=== PATIENT | female | born 1960 | race African-American/Black ===

== ENCOUNTER → 2016-10-06 | Outpatient (CLI) | payer MEDICAID | LOC: RAD 08:44 | PROVIDERS: ATTEND Internal Medicine | DX: M54.40 Lumbago with sciatica, unspecified side (principal) | CPT/HCPCS: 72158; 82565 ==

== ENCOUNTER 2016-12-26 07:02 | Inpatient (IN) | payer MEDICAID ==
[2016-12-26 07:46] LABS: ABSOLUTE LYMPHOCYTES (AUTO) 1.8 10^3/uL (0.5-4.7); ABSOLUTE MONOCYTES (AUTO) 0.2 10^3/uL (0.1-1.4); BASOPHILS % (AUTO) 0.3 % (0-2); EOSINOPHILS % (AUTO) 0.3 % (0-6); HEMATOCRIT 41.3 % (36.0-47.0); HEMOGLOBIN 14.5 g/dL (12.0-15.5); HGB HCT DIFFERENCE 2.2; MEAN CORPUSCULAR HEMOGLOBIN 31.6 pg (27.0-33.4); MEAN CORPUSCULAR VOLUME 91 fl (80-97); MONOCYTES % (AUTO) 2.4 % (3-13); RED BLOOD COUNT 4.57 10^6/uL (3.72-5.28); RED CELL DISTRIBUTION WIDTH 13.7 % (11.5-14.0); WHITE BLOOD COUNT 10.1 10^3/uL (4.0-10.5)
[2016-12-26 08:07] LABS: ALANINE AMINOTRANSFERASE 41 U/L (9-52); ALBUMIN 4.6 g/dL (3.5-5.0); ALKALINE PHOSPHATASE 126 U/L (38-126); ANION GAP 15 (5-19); ASPARTATE AMINO TRANSFERASE 24 U/L (14-36); BILIRUBIN,DIRECT 0.1 mg/dL (0.0-0.4); BILIRUBIN,TOTAL 0.6 mg/dL (0.2-1.3); BLOOD UREA NITROGEN 13 mg/dL (7-20); CARBON DIOXIDE 25 mmol/L (22-30); CHLORIDE 105 mmol/L (98-107); CREATININE RESULT 0.54 mg/dL (0.52-1.25); GLUCOSE 151 mg/dL (75-110); LIPASE 55.8 U/L (23-300); SODIUM 144.9 mmol/L (137-145); TOTAL PROTEIN 8.1 g/dL (6.3-8.2)
[2016-12-26 08:09] LABS: APPEARANCE,URINE CLEAR; BILIRUBIN,URINE NEGATIVE (NEGATIVE); GLUCOSE, URINE NEGATIVE (NEGATIVE); KETONES,URINE NEGATIVE (NEGATIVE); LEUKOCYTE ESTERASE,URINE NEGATIVE (NEGATIVE); NITRITE,URINE NEGATIVE (NEGATIVE); PROTEIN,URINE NEGATIVE (NEGATIVE); URINE SPECIFIC GRAVITY 1.017; UROBILINOGEN,URINE NEGATIVE mg/dL (<2.0)
--- NOTE | 2016-12-26 09:12 | ER Document Report ---
ED GI/ - General Chief Complaint: Abdominal Pain Stated Complaint: ABDOMINAL PAIN Time seen by provider: 09:12 Notes: 56-year-old female presents to ED for complain of generalized abdominal pain worse around the umbilicus. She states the pain started about 2:00 in the morning. She states she's had diarrhea 2 today. TRAVEL OUTSIDE OF THE [place] IN LAST 30 DAYS: No - HPI Patient complains to provider of: Abdominal pain, Diarrhea. No: Vomiting Onset: This morning - Around 2 AM Timing/Duration: Intermittent Quality of pain: Sharp, Stabbing Severity at maximum: Severe Severity in ED: Severe Pain Level: 5 Location: Other - . Umbilical Vaginal bleeding (Compared to normal period): None Menstrual period history: Post-menopausal Associated symptoms: Diarrhea, Nausea Exacerbated by: Movement, Walking Relieved by: Denies Similar symptoms previously: Yes Recently seen / treated by doctor: No - Related Data Allergies/Adverse Reactions: peanut [Peanut] Adverse Reaction (Verified 12/26/16 07:20) Difficulty breathing Home Medications: Current Home Medications Amlodipine Besylate 5 mg PO DAILY 12/26/16 [History] Cholecalciferol (Vitamin D3) [Vitamin D3 5000 unit Capsule] 5,000 unit PO ASDIR PRN 12/26/16 [History] Cyclobenzaprine HCl [Flexeril 10 mg Tablet] 10 mg PO TIDP PRN 12/26/16 [History] Oxycodone HCl/Acetaminophen [Oxycodon-Acetaminophen 7.5-325] 1 each PO TID 12/26 [History] Past Medical History - General Information source: Patient - Social History Smoking Status: Current Every Day Smoker Cigarette use (# per day): Yes - half a pack a day Chew tobacco use (# tins/day): No Smoking Education Provided: Yes - less than 2 minutes Frequency of alcohol use: None Drug Abuse: None Occupation: none Lives with: Spouse/Significant other Family History: Arthritis, COPD, CVA, Hyperlipidemia, Hypertension, Malignancy Patient has suicidal ideation: No Patient has homicidal ideation: No - Past Medical History Cardiac Medical History: Reports: Hx Hypertension Pulmonary Medical History: Reports: None EENT Medical History: Reports: None Neurological Medical History: Reports: None Endocrine Medical History: Reports: None Renal/ Medical History: Reports: Hx Ovarian Cysts GI Medical History: Reports: Hx Diverticulitis, Hx Hepatitis - c, Hx Colonoscopy Musculoskeltal Medical History: Reports Hx Arthritis - Chronic back pain, Reports Hx Musculoskeletal Deformity Psychiatric Medical History: Reports: None Traumatic Medical History: Reports: None Infectious Medical History: Reports: Hx Hepatitis - c Past Surgical History: Reports: Hx Cholecystectomy, Hx Gynecologic Surgery - ovarian scar tissue removed infertility surgery, Hx Oral Surgery - Teeth removed and dental implant, Hx Orthopedic Surgery - carpal tunnel bunionectomy - Immunizations Immunizations up to date: No Hx Diphtheria, Pertussis, Tetanus Vaccination: No - 2007 Review of Systems - Review of Systems Constitutional: No symptoms reported EENT: No symptoms reported Cardiovascular: No symptoms reported Respiratory: No symptoms reported Gastrointestinal: Abdominal pain, Diarrhea, Nausea. denies: Vomiting Genitourinary: No symptoms reported Female Genitourinary: No symptoms reported Musculoskeletal: No symptoms reported Skin: No symptoms reported Hematologic/Lymphatic: No symptoms reported Neurological/Psychological: No symptoms reported Physical Exam - Vital signs Vitals: Temp Pulse Resp BP Pulse Ox 98.3 F 84 14 141/102 H 99 12/26/16 07:21 12/26/16 07:21 12/26/16 07:21 12/26/16 07:21 12/26/16 07:21 Interpretation: Normal - General General appearance: Appears well, Alert - HEENT Head: Normocephalic, Atraumatic Eyes: Normal Pupils: PERRL - Respiratory Respiratory status: No respiratory distress Chest status: Nontender Breath sounds: Normal Chest palpation: Normal - Cardiovascular Rhythm: Regular Heart sounds: Normal auscultation Murmur: No - Abdominal Inspection: Normal Distension: Distended Bowel sounds: Hypoactive Tenderness: Tender Organomegaly: No organomegaly - Back Back: Normal, Nontender - Extremities General upper extremity: Normal inspection, Nontender, Normal color, Normal ROM , Normal temperature General lower extremity: Normal inspection, Nontender, Normal color, Normal ROM , Normal temperature, Normal weight bearing. No: Vladislav's sign - Neurological Neuro grossly intact: Yes Cognition: Normal Orientation: AAOx4 Adali Coma Scale Eye Opening: Spontaneous [place] Coma Scale Verbal: Oriented [place] Coma Scale Motor: Obeys Commands Adali Coma Scale Total: 15 Speech: Normal Motor strength normal: LUE, RUE, LLE, RLE Sensory: Normal - Psychological Associated symptoms: Normal affect, Normal mood - Skin Skin Temperature: Warm Skin Moisture: Dry Skin Color: Normal Course - Re-evaluation Re-evalutation: 12/26/16 14:[address] Olivo with some Symptoms Assessment a CT Abdomen and Pelvis with IV contrast was ordered and returned as a possible small bowel obstruction early. Patient continues to be nauseated has had Zofran a couple times morphine IV. We will insert NG tube. Dr. Honeycutt was called to consult for admission but he is presently in surgery just starting the procedure left message for him to call back as soon as he is out of surgery. 12/26/16 16:43 Dr. crow is on the unit and the visiting these patients and will admit her for small bowel obstruction. - Vital Signs Vital signs: Temp Pulse Resp BP Pulse Ox 98.1 F 84 18 138/104 H 95 12/26/16 17:31 12/26/16 13:52 12/26/16 17:31 12/26/16 17:31 12/26/16 17:31 - Laboratory Result Diagrams: 12/26/16 07:30 12/26/16 07:30 Laboratory results interpreted by me: 12/26/16 12/26/16 12/26/16 07:30 07:30 07:30 Seg Neutrophils % 79.0 H Monocytes % 2.4 L Glucose 151 H Urine Blood MODERATE H - Diagnostic Test Radiology reviewed: Image reviewed, Reports reviewed Discharge - Discharge Clinical Impression: Small bowel obstruction Disposition: ADMITTED INPATIENT Admitting Provider: Codiist Fam Honeycutt Unit Admitted: Surgical Floor
[2016-12-26] MEDS ORDERED: ONDANSETRON HCL INJ/PF 4 MG/2 ML SDV IV ONE ×2 (09:42→11:28)
[2016-12-26] MEDS ORDERED: NORMAL SALINE 1000 ML 1,000 ML IV ONE (09:42)
[2016-12-26] MEDS ORDERED: MORPHINE SULFATE 10 MG/ML INJ IV ONE ×2 (11:28→15:05)
--- NOTE | 2016-12-26 16:58 | HISTORY AND PHYSICAL E ---
History and Physical NAME: LEELEE HANDY : 1960 AGE: 56Y ADMITTED: 12/26/2016 ROOM: CHIEF COMPLAINT: Abdominal pain. HISTORY OF PRESENT ILLNESS: This is a 56-year-old female who complained of periumbilical pains around 8 o'clock after dinner last night. The pain subsided only to come back around 2:00 a.m. and has persisted since then. The pain is described as off and on, and she has had a little nausea. Her last bowel movement and flatus was yesterday morning. PAST MEDICAL HISTORY: 1. History of laparoscopic cholecystectomy by Dr. Albrecht about 2 years ago apparently for acalculous cholecystitis according to the patient and her daughter. 2. She had multiple fertility operations laparoscopically done in her 20s. 3. She has been taking oxycodone daily since about 6 years ago because of back pains, and she is being followed by a primary physician for this. 4. History of hypertension and takes amlodipine for this. 5. No other medical issues other than back pains. She also had some every 2 week injection of steroids on her back pain. SOCIAL HISTORY: Smokes about 1/2 pack a day, though otherwise she has been smoking on and off since age 20 about a pack a day. Drinks socially. No recreational drug use. ALLERGIES: None known. PHYSICAL EXAMINATION: GENERAL: Well-developed, well-nourished, 56-year-old female, alert and oriented, complaining of off and on abdominal pains, mostly on the umbilicus. HEENT: Neck is supple. No thyromegaly. LUNGS: Clear. HEART: Regular sinus rhythm. ABDOMEN: Slightly distended, soft, and tender around and just below the umbilicus. EXTREMITIES: No edema. DIAGNOSTIC DATA: She had a CT scan of the abdomen which showed a mildly dilated distal small bowel with scattered air-fluid levels. Severe gastric distention noted. She appears to be developing a small bowel obstruction. Appendix is normal. IMPRESSION: Small bowel obstruction, likely due to adhesions. PLAN: Continue hydration and NPO and monitor CBC and electrolytes. DICTATING PHYSICIAN: ESTEVAN GALLEGOS M.D. [id number] PHY#: [id number] ID: [id number] JOB#: [id number] ACCT: [id number] cc: >
[2016-12-26] MEDS: MORPHINE SULFATE 10 MG/ML INJ IV PRN ×2 (19:35→22:57)
[2016-12-27] MEDS: MORPHINE SULFATE 10 MG/ML INJ IV PRN ×5 (01:37→05:30)
[2016-12-27] MEDS ORDERED: ONDANSETRON HCL INJ/PF 4 MG/2 ML SDV IV PRN ×2 (01:57→18:05)
[2016-12-27] MEDS: NORMAL SALINE 1000 ML 1,000 ML IV PRN ×3 (02:27→21:39)
[2016-12-27 07:40] LABS: ABSOLUTE EOSINOPHILS # (AUTO) 0.1 10^3/uL (0.0-0.6); ABSOLUTE LYMPHOCYTES (AUTO) 2.2 10^3/uL (0.5-4.7); ABSOLUTE MONOCYTES (AUTO) 0.5 10^3/uL (0.1-1.4); ABSOLUTE NEUT (AUTO) 9.1 10^3/uL (1.7-8.2); BASOPHILS % (AUTO) 0.3 % (0-2); EOSINOPHILS % (AUTO) 0.5 % (0-6); HEMATOCRIT 44.9 % (36.0-47.0); HGB HCT DIFFERENCE 0.1; LYMPHOCYTES % (AUTO) 18.5 % (13-45); MEAN CORPUSCULAR HEMOGLOBIN 30.4 pg (27.0-33.4); MEAN CORPUSCULAR HGB CONC 33.5 g/dL (32.0-36.0); MEAN CORPUSCULAR VOLUME 91 fl (80-97); MONOCYTES % (AUTO) 4.1 % (3-13); RED BLOOD COUNT 4.95 10^6/uL (3.72-5.28); RED CELL DISTRIBUTION WIDTH 13.5 % (11.5-14.0); SEGMENTED NEUTROPHILS % (AUTO) 76.6 % (42-78); WHITE BLOOD COUNT 11.9 10^3/uL (4.0-10.5)
[2016-12-27 07:49] LABS: ANION GAP 12 (5-19); BLOOD UREA NITROGEN 13 mg/dL (7-20); CALCIUM 9.6 mg/dL (8.4-10.2); CARBON DIOXIDE 26 mmol/L (22-30); CHLORIDE 106 mmol/L (98-107); CREATININE RESULT 0.49 mg/dL (0.52-1.25); GLUCOSE 126 mg/dL (75-110); SODIUM 144.1 mmol/L (137-145)
[2016-12-27] MEDS ORDERED: HYDROMORPHONE HCL INJ/PF 2 MG/ML AMPULE IV PRN ×2 (11:30→18:04)
[2016-12-27] MEDS ORDERED: RINGERS SOLUTION,LACTATED 500 ML IV ONE (12:00)
[2016-12-27] MEDS ORDERED: BUPIVACAINE HCL 0.25% /EPINEPHRINE INJ/PF 30 ML SDV ONE (13:22)
[2016-12-27] MEDS ORDERED: MIDAZOLAM 2 MG/2 ML INJ ONE (13:38)
[2016-12-27] MEDS ORDERED: FENTANYL CITRATE INJ/PF 250 MCG/5 ML AMPULE ONE (13:38)
[2016-12-27] MEDS ORDERED: PROPOFOL INJ 200 MG/20 ML VIAL IV ONE (13:38)
[2016-12-27] MEDS ORDERED: HYDROMORPHONE HCL INJ/PF 2 MG/ML AMPULE ONE (13:38)
[2016-12-27] MEDS ORDERED: PIPERACILLIN/TAZOBACTAM 3.375 GM VIAL IV ONE (14:21)
[2016-12-27] MEDS ORDERED: PIPERACILLIN SODIUM/TAZOBACTAM 3.375 GM in NORMAL SALINE 100 ML IV PRN (14:25)
--- NOTE | 2016-12-27 17:33 | PDOC CONSULTATION ---
Consultation Consult Date: 12/27/16 Attending physician:: VINNY LOO Consult reason:: Mgt of Hypertension History of Present Illness Admission Date/PCP: 12/26/16 18:26 VINNY LOO Patient complains of: Abd. pain and nausea/vomiting. History of Present Illness: LEELEE HANDY is a 56 year old female with hx of Hypertension/Hyperlipidemia/ Back pain/Osteoarthritis/Prediabetes/Vitamin D def/Vertigo/Cramps/Hep. s.p therapy who presented on 12/26/2016 fro abd. pain, nausea and vomiting after eating. Abd. xray confirmed small bowel obstruction. She is NPO and and just had surgery. I was consulted for mgt of hypertension.Her antihpertensive is Amlodipine 10 mg qd po, but we have to hold it for now since she is NPO and put her on Hydralazine IV prn for now. Past Medical History Cardiac Medical History: Reports: Hypertension Denies: Coronary Artery Disease, Myocardial Infarction Pulmonary Medical History: Reports: None EENT Medical History: Reports: None Neurological Medical History: Reports: None Endocrine Medical History: Reports: None GI Medical History: Reports: Diverticulitis, Hepatitis - c Musculoskeltal Medical History: Reports: Arthritis - Chronic back pain Psychiatric Medical History: Reports: None Denies: Depression Traumatic Medical History: Reports: None Past Surgical History Past Surgical History: Reports: Cholecystectomy, Orthopedic Surgery - carpal tunnel bunionectomy Social History Lives with: Spouse/Significant other Smoking Status: Current Every Day Smoker Cigarettes Packs Per Day: 10 Number of Years Smokin Last Time Smoked: t Frequency of Alcohol Use: None Hx Recreational Drug Use: No Drugs: None Hx Prescription Drug Abuse: No - Advance Directive Resuscitation Status: Full Code Family History Family History: Arthritis, COPD, CVA, Hyperlipidemia, Hypertension, Malignancy Parental Family History Reviewed: Yes Children Family History Reviewed: Yes Sibling(s) Family History Reviewed.: Yes Medication/Allergy Home Medications: Amlodipine Besylate [Norvasc 5 mg Tablet] 5 mg PO DAILY 12/26/16 Cyclobenzaprine HCl [Flexeril 10 mg Tablet] 10 mg PO BIDP PRN 12/26/16 Ergocalciferol (Vitamin D2) [Drisdol 50,000 Unit (1.25MG) Capsule] 50,000 unit PO MO@1000 12/26/16 Oxycodone HCl/Acetaminophen [Percocet 7.5-325 Mg Tablet] 1 each PO TIDP PRN Tramadol HCl [Ultram 50 mg Tablet] 50 mg PO DAILYP PRN 12/27/16 Allergies/Adverse Reactions: No Known Allergies Allergy (Unverified 12/27/16 01:27) Review of Systems All systems: as per PMH Constitutional: PRESENT: as per HPI Ears: PRESENT: as per HPI Nose, Mouth, and Throat: PRESENT: as per HPI Cardiovascular: PRESENT: as per HPI Gastrointestinal: PRESENT: as per HPI, abdominal pain, nausea, vomiting Genitourinary: PRESENT: as per HPI Integumentary: PRESENT: as per HPI Neurological: PRESENT: as per HPI Psychiatric: PRESENT: as per HPI Endocrine: PRESENT: as per HPI Hematologic/Lymphatic: PRESENT: as per HPI Physical Exam Vital Signs: Temp Pulse Resp BP Pulse Ox 98.1 F 84 14 140/91 H 97 12/27/16 13:25 12/27/16 13:25 12/27/16 13:25 12/27/16 13:25 12/27/16 13:25 Intake & Output 12/26/16 12/27/16 12/28/16 06:59 06:59 06:59 Intake Total 2300 Output Total 1225 2850 Balance -1225 -550 General appearance: PRESENT: no acute distress, well-developed, well-nourished Head exam: PRESENT: atraumatic, normocephalic Eye exam: PRESENT: EOMI, PERRLA Ear exam: PRESENT: normal external ear exam, TM's normal bilaterally Mouth exam: PRESENT: moist Respiratory exam: PRESENT: chest wall tenderness, symmetrical Cardiovascular exam: PRESENT: +S1, +S2 Pulses: PRESENT: +2 pedal pulses bilateral Vascular exam: PRESENT: normal capillary refill GI/Abdominal exam: PRESENT: diminished bowel sounds, soft, tenderness Rectal exam: PRESENT: deferred Neurological exam: PRESENT: alert, awake, oriented to person, oriented to place , oriented to time Psychiatric exam: PRESENT: normal mood Results Laboratory Results: 12/27/16 07:19 12/27/16 07:19 12/27/16 12/27/16 12/27/16 07:19 07:19 14:12 WBC 11.9 H RBC 4.95 Hgb 15.0 Hct 44.9 MCV 91 MCH 30.4 MCHC 33.5 RDW 13.5 Plt Count 324 Seg Neutrophils % 76.6 Lymphocytes % 18.5 Monocytes % 4.1 Eosinophils % 0.5 Basophils % 0.3 Absolute Neutrophils 9.1 H Absolute Lymphocytes 2.2 Absolute Monocytes 0.5 Absolute Eosinophils 0.1 Absolute Basophils 0.0 Sodium 144.1 Potassium 4.0 Chloride 106 Carbon Dioxide 26 Anion Gap 12 BUN 13 Creatinine 0.49 L Est GFR ( Amer) > 60 Est GFR (Non-Af Amer) > 60 Glucose 126 H Calcium 9.6 Blood Type B POSITIVE Antibody Screen NEGATIVE Impressions: Abdomen/Pelvis CT 12/26/16 00:00 IMPRESSION: Mildly dilated distal small bowel with scattered air-fluid levels. Developing small bowel obstruction cannot be excluded there is a small amount of mesenteric edema and free fluid in the right lower quadrant. The appendix is normal. There is severe gastric distention as well. KUB X-Ray 12/26/16 09:41 IMPRESSION: Nonspecific bowel gas pattern Small Bowel X-Ray 12/27/16 00:00 IMPRESSION: Gastric outlet obstruction. Unable to evaluate small bowel Findings and limitations discussed with the patient's attending surgeon Assessment & Plan - Diagnosis (1) Small bowel obstruction Is this a current diagnosis for this admission?: YesPlan: Ct with NPO; Ct with IV fluids normal saline at 125 cc/hr; Ct with Dilaudid 2mg q2h IV prn; Ct with Zosyn 3.375 g q6h IV; f/u general surgeons for mgt. (2) Hypertension Is this a current diagnosis for this admission?: YesPlan: Ct with Hydralazine 10mg q6h IV prn for now since she is NPO. (3) Hyperlipidemia Is this a current diagnosis for this admission?: YesPlan: She is NPO for now; Ct with conservative mgt. (4) Lumbago Is this a current diagnosis for this admission?: YesPlan: Ct with Morphine 4 mg q3h prn IV; Ct with Tylenol 650 mg q6h prn suppository. (5) DVT prophylaxis Is this a current diagnosis for this admission?: YesPlan: Ct with Lovenox 40 mg qd subcut; SCD.
[2016-12-27] MEDS ORDERED: MORPHINE SULFATE 10 MG/ML INJ IV PRN (17:48)
[2016-12-27] MEDS ORDERED: PROMETHAZINE HCL INJ 25 MG/1 ML VIAL IV PRN (17:48)
[2016-12-27] MEDS ORDERED: FENTANYL CITRATE INJ/PF 100 MCG/2 ML AMPUL IV PRN ×3 (17:48)
[2016-12-27] MEDS ORDERED: DIPHENHYDRAMINE HCL 50 MG/ML VIAL IV PRN (17:48)
[2016-12-27] MEDS ORDERED: ACETAMINOPHEN 100 ML IV ONE ×2 (17:54→18:30)
--- NOTE | 2016-12-27 18:53 | OPERATIVE REPORT E ---
Operative Report NAME: LEELEE HANDY : 1960 AGE: 56Y DATE OF SURGERY: 12/27/2016 ROOM: 223 PREOPERATIVE DIAGNOSIS: Small bowel obstruction due to adhesions. POSTOPERATIVE DIAGNOSIS: Small bowel obstruction due to adhesions. OPERATION: 1. Exploratory laparotomy. 2. Lysis of adhesions. SURGEON: ESTEVAN GALLEGOS M.D. ANESTHESIA: General. INDICATIONS: This is a 56-year-old female who had multiple laparoscopic procedures in the past for infertility. She came in with severe abdominal pain, nausea and vomiting last night. I sent her for a Gastrografin with a small bowel series through the NG tube today and showed that the Gastrografin cannot go past the duodenum. It appears that she might have a closed loop obstruction as discussed with the radiologist on a previous CT scan last night. The patient, however, is continuously complaining of severe pain worse today and requiring parenteral pain medications. Her white count also went up this morning. Because of this, it was decided to take her to the OR for exploratory laparotomy. DESCRIPTION OF PROCEDURE: After adequate general anesthesia, the abdomen was then prepped and draped in the usual sterile fashion. A timeout was then performed. Next, a midline incision made from just at the mid epigastric area down to just before the pubis. Incision deepened down to the fascia. The fascia was subsequently opened proximally. The fascia was then divided with scissors distally, but at the area of the umbilicus, there were extensive adhesions noted with the bowel practically adherent to the area of the umbilicus. The bowel here appears to be matted and almost completely occluded. Dissection of this area was gingerly done, and eventually, a portion of adherent small bowel was dissected down from the fascia; however, in so doing, a small portion of the small bowel serosa was inadvertently cut, and this was then reapproximated with about 4 sutures of 3-0 silk. Next, the small bowel enterolysis was extensively loaded and subsequently lysed sharply. It took at least 45 minutes to lyse the adhesions. The bowel was then run from the cecum all the way up into the ligament of Treitz. No further obstruction noted. The nasogastric tube was palpated in the stomach and no obvious abnormality palpated in the area of duodenum. Following this, about 4 pieces of Seprafilm was placed. The fascia was subsequently closed with running suture using #1 PDS starting from both ends and meeting at the middle. About 3 [id number] sutures interrupted 0 PDS were placed at the mid part of the fascial closure, and they were then tied to the running #1 PDS. The subcutaneous was then irrigated with saline solution and the skin closed with janneth. Needle, instrument, and sponge counts were all correct. Estimated blood loss about 100 mL. Sterile dressings were placed over the incision site. The patient was then brought to the PACU in satisfactory condition. DICTATING PHYSICIAN: ESTEVAN GALLEGOS M.D. [id number] PHY#: [id number] ID: [id number] JOB#: [id number] ACCT: [id number] cc:ESTEVAN GALLEGOS M.D. >
[2016-12-27] MEDS: HYDROMORPHONE HCL INJ/PF 2 MG/ML AMPULE IV PRN (19:48)
--- NOTE | 2016-12-27 20:07 | EKG REPORT ---
SEVERITY:- NORMAL ECG - SINUS RHYTHM : Confirmed by: Montserrat Mccall MD 27-Dec-2016 20:06:42
[2016-12-27] MEDS: HYDRALAZINE HCL INJ/PF 20 MG/1 ML SDV IV PRN (20:39)
[2016-12-27] MEDS: CEFAZOLIN 1 GM/D5W RTU 1 GM/50 ML RTUPB IV SCH (21:39)
[2016-12-28] MEDS: HYDROMORPHONE HCL INJ/PF 2 MG/ML AMPULE IV PRN ×2 (00:10→19:40)
[2016-12-28] MEDS: MORPHINE SULFATE 10 MG/ML INJ IV PRN ×2 (02:52→06:39)
[2016-12-28] MEDS: HYDRALAZINE HCL INJ/PF 20 MG/1 ML SDV IV PRN ×2 (04:11→12:31)
[2016-12-28] MEDS: CEFAZOLIN 1 GM/D5W RTU 1 GM/50 ML RTUPB IV SCH ×2 (05:03→21:30)
[2016-12-28] MEDS: NORMAL SALINE 1000 ML 1,000 ML IV PRN (06:31)
--- NOTE | 2016-12-28 08:45 | PDOC PROGRESS REPORT ---
Subjective Progress Note for:: 12/28/16 Subjective:: poor pain control Physical Exam Vital Signs: Temp Pulse Resp BP Pulse Ox 98.3 F 118 H 18 156/97 H 98 12/28/16 08:00 12/28/16 08:00 12/28/16 08:00 12/28/16 08:00 12/28/16 08:00 Intake & Output 12/27/16 12/28/16 12/29/16 06:59 06:59 06:59 Intake Total 6500 Output Total 1225 5110 250 Balance -1225 1390 -250 General appearance: PRESENT: no acute distress, cooperative Respiratory exam: PRESENT: clear to auscultation kianna Cardiovascular exam: PRESENT: tachycardia GI/Abdominal exam: PRESENT: other - soft, mildly distended, tender at midline mostly along incision. no peritoneal signs. Results Laboratory Results: 12/27/16 07:19 12/27/16 07:19 12/27/16 14:12 Blood Type B POSITIVE Antibody Screen NEGATIVE Impressions: Abdomen/Pelvis CT 12/26/16 00:00 IMPRESSION: Mildly dilated distal small bowel with scattered air-fluid levels. Developing small bowel obstruction cannot be excluded there is a small amount of mesenteric edema and free fluid in the right lower quadrant. The appendix is normal. There is severe gastric distention as well. KUB X-Ray 12/26/16 09:41 IMPRESSION: Nonspecific bowel gas pattern Small Bowel X-Ray 12/27/16 00:00 IMPRESSION: Gastric outlet obstruction. Unable to evaluate small bowel Findings and limitations discussed with the patient's attending surgeon Assessment & Plan - Diagnosis (1) Small bowel obstruction Is this a current diagnosis for this admission?: YesPlan: s/p davon. main problem is pain control despite morphine and dilaudid. will try toradol.
[2016-12-28] MEDS ORDERED: KETOROLAC TROMETHAMINE INJ/PF 30 MG/1 ML SDV IV ONE (09:00)
[2016-12-28] MEDS ORDERED: LABETALOL HCL INJ 20 MG/4 ML DISP.SYRIN IV PRN (10:25)
--- NOTE | 2016-12-28 10:31 | PDOC PROGRESS REPORT ---
Subjective Progress Note for:: 12/28/16 Subjective:: She is day one post op for laparotomy for small bowel obstruction. She is still having post op pains and is being managed by surgeons. We will add Labetalol IV prn to help optimize BP control since she is still NPO. Physical Exam Vital Signs: Temp Pulse Resp BP Pulse Ox 98.3 F 118 H 18 156/97 H 98 12/28/16 08:00 12/28/16 08:00 12/28/16 08:00 12/28/16 08:00 12/28/16 08:00 Intake & Output 12/27/16 12/28/16 12/29/16 06:59 06:59 06:59 Intake Total 6500 Output Total 1225 5110 250 Balance -1225 1390 -250 General appearance: PRESENT: well-developed, well-nourished Head exam: PRESENT: atraumatic, normocephalic Eye exam: PRESENT: EOMI, PERRLA Mouth exam: PRESENT: moist, neck supple Cardiovascular exam: PRESENT: +S1, +S2 Pulses: PRESENT: +2 pedal pulses bilateral GI/Abdominal exam: PRESENT: diminished bowel sounds, normal bowel sounds, soft, tenderness Rectal exam: PRESENT: deferred Extremities exam: PRESENT: full ROM Musculoskeletal exam: PRESENT: ambulatory Neurological exam: PRESENT: alert, awake, oriented to person, oriented to place , oriented to time, CN II-XII grossly intact Psychiatric exam: PRESENT: normal mood Results Laboratory Results: 12/27/16 07:19 12/27/16 07:19 12/27/16 14:12 Blood Type B POSITIVE Antibody Screen NEGATIVE Impressions: Abdomen/Pelvis CT 12/26/16 00:00 IMPRESSION: Mildly dilated distal small bowel with scattered air-fluid levels. Developing small bowel obstruction cannot be excluded there is a small amount of mesenteric edema and free fluid in the right lower quadrant. The appendix is normal. There is severe gastric distention as well. KUB X-Ray 12/26/16 09:41 IMPRESSION: Nonspecific bowel gas pattern Small Bowel X-Ray 12/27/16 00:00 IMPRESSION: Gastric outlet obstruction. Unable to evaluate small bowel Findings and limitations discussed with the patient's attending surgeon Assessment & Plan - Diagnosis (1) Small bowel obstruction Is this a current diagnosis for this admission?: YesPlan: Ct with NPO; Ct with IV fluids normal saline at 125 cc/hr; Ct with Dilaudid 2mg q2h IV prn; Ct with Zosyn 3.375 g q6h IV; f/u general surgeons for mgt. (2) Hypertension Is this a current diagnosis for this admission?: YesPlan: Ct with Hydralazine 10mg q6h IV prn for now since she is NPO.Add Labetalol 10 mg q6h IV prn. (3) Hyperlipidemia Is this a current diagnosis for this admission?: YesPlan: She is NPO for now; Ct with conservative mgt. (4) Lumbago Is this a current diagnosis for this admission?: YesPlan: Ct with Morphine 4 mg q3h prn IV; Ct with Tylenol 650 mg q6h prn suppository. (5) DVT prophylaxis Is this a current diagnosis for this admission?: YesPlan: Ct with Lovenox 40 mg qd subcut; SCD.
[2016-12-28] MEDS: FAMOTIDINE INJ/PF 20 MG/2 ML SDV IV SCH (21:30)
[2016-12-28] MEDS: KETOROLAC TROMETHAMINE INJ/PF 30 MG/1 ML SDV IV PRN (22:42)
[2016-12-29] MEDS: NORMAL SALINE 1000 ML 1,000 ML IV PRN ×2 (01:22→09:58)
[2016-12-29] MEDS: HYDROMORPHONE HCL INJ/PF 2 MG/ML AMPULE IV PRN ×2 (01:22→09:54)
[2016-12-29 05:23] LABS: HEMATOCRIT 35.8 % (36.0-47.0); HGB HCT DIFFERENCE 1.4; MEAN CORPUSCULAR HEMOGLOBIN 32.1 pg (27.0-33.4); MEAN CORPUSCULAR HGB CONC 34.6 g/dL (32.0-36.0); MEAN CORPUSCULAR VOLUME 93 fl (80-97); RED BLOOD COUNT 3.86 10^6/uL (3.72-5.28); RED CELL DISTRIBUTION WIDTH 13.3 % (11.5-14.0); WHITE BLOOD COUNT 9.5 10^3/uL (4.0-10.5)
[2016-12-29] MEDS: KETOROLAC TROMETHAMINE INJ/PF 30 MG/1 ML SDV IV PRN ×3 (05:32→20:10)
[2016-12-29] MEDS: CEFAZOLIN 1 GM/D5W RTU 1 GM/50 ML RTUPB IV SCH ×3 (05:32→22:06)
[2016-12-29 05:44] LABS: HEMOGLOBIN 12.4 g/dL (12.0-15.5)
[2016-12-29 05:53] LABS: ANION GAP 11 (5-19); BLOOD UREA NITROGEN 11 mg/dL (7-20); CALCIUM 8.5 mg/dL (8.4-10.2); CARBON DIOXIDE 27 mmol/L (22-30); CHLORIDE 105 mmol/L (98-107); CREATININE RESULT 0.47 mg/dL (0.52-1.25); GLUCOSE 97 mg/dL (75-110); POTASSIUM 3.4 mmol/L (3.6-5.0)
[2016-12-29] MEDS: FAMOTIDINE INJ/PF 20 MG/2 ML SDV IV SCH ×2 (09:54→22:05)
[2016-12-29] MEDS: ENOXAPARIN SODIUM INJ 40 MG/0.4 ML DISP.SYRIN SUBCUT SCH (09:55)
--- NOTE | 2016-12-29 11:19 | PDOC PROGRESS REPORT ---
Subjective Progress Note for:: 12/29/16 Subjective:: Patient has no complaints; nasogastric tube draining light tinged bilious material. Patient denies flatus. Physical Exam Vital Signs: Temp Pulse Resp BP Pulse Ox 98.1 F 98 18 154/93 H 99 12/29/16 08:26 12/29/16 08:26 12/29/16 08:26 12/29/16 08:26 12/29/16 08:26 Intake & Output 12/28/16 12/29/16 12/30/16 06:59 06:59 06:59 Intake Total 6500 1356 Output Total 5110 3250 Balance 1390 -1894 General appearance: PRESENT: no acute distress GI/Abdominal exam: PRESENT: other - Abdomen appropriately tender. No rigidity no peritoneal signs. Nasogastric tube flushed. Results Laboratory Results: 12/29/16 04:09 12/29/16 04:09 12/29/16 12/29/16 04:09 04:09 WBC 9.5 RBC 3.86 Hgb 12.4 D Hct 35.8 L MCV 93 MCH 32.1 MCHC 34.6 RDW 13.3 Plt Count 257 Sodium 143.0 Potassium 3.4 L Chloride 105 Carbon Dioxide 27 Anion Gap 11 BUN 11 Creatinine 0.47 L Est GFR ( Amer) > 60 Est GFR (Non-Af Amer) > 60 Glucose 97 Calcium 8.5 Impressions: Abdomen/Pelvis CT 12/26/16 00:00 IMPRESSION: Mildly dilated distal small bowel with scattered air-fluid levels. Developing small bowel obstruction cannot be excluded there is a small amount of mesenteric edema and free fluid in the right lower quadrant. The appendix is normal. There is severe gastric distention as well. KUB X-Ray 12/26/16 09:41 IMPRESSION: Nonspecific bowel gas pattern Small Bowel X-Ray 12/27/16 00:00 IMPRESSION: Gastric outlet obstruction. Unable to evaluate small bowel Findings and limitations discussed with the patient's attending surgeon Assessment & Plan - Diagnosis (1) Small bowel obstruction Is this a current diagnosis for this admission?: YesPlan: She was today status post exploratory laparotomy, small bowel adhesiolysis. Predictable postoperative course at this point. Await resolution of ileus. Plan of the day: 1. Discontinue Irwin catheter 2. Replace Depleted potassium intravenously. 3. Ambulate patient.
[2016-12-29] MEDS: POTASSI CL 20 MEQ/50 ML RIDER 50 ML IV SCH ×3 (11:33→19:01)
[2016-12-29] MEDS ORDERED: ACETAMINOPHEN 100 ML IV PRN (14:09)
[2016-12-29] MEDS: MORPHINE SULFATE 10 MG/ML INJ IV PRN ×2 (14:30→18:17)
--- NOTE | 2016-12-29 16:25 | PDOC PROGRESS REPORT ---
Subjective Progress Note for:: 12/29/16 Subjective:: She is day 2 post op for laparotomy for small bowel obstruction. She is has not passed flatus and post-op pain has improved. We will ct with Labetalol IV prn and Hydralazine IV prn to help optimize BP control since she is still NPO.Her potassium was 3.4 today has been replaced by the surgeons.Follow up repeat labs. Physical Exam Vital Signs: Temp Pulse Resp BP Pulse Ox 98.4 F 100 20 158/95 H 100 12/29/16 12:06 12/29/16 12:06 12/29/16 12:06 12/29/16 12:06 12/29/16 12:06 Intake & Output 12/28/16 12/29/16 12/30/16 06:59 06:59 06:59 Intake Total 6500 1356 Output Total 5110 3250 Balance 1390 -1894 General appearance: PRESENT: well-developed, well-nourished Head exam: PRESENT: atraumatic, normocephalic Eye exam: PRESENT: EOMI, PERRLA Ear exam: PRESENT: TM's normal bilaterally Mouth exam: PRESENT: moist, neck supple Respiratory exam: PRESENT: clear to auscultation kianna, symmetrical Cardiovascular exam: PRESENT: +S1, +S2 Pulses: PRESENT: +2 pedal pulses bilateral GI/Abdominal exam: PRESENT: diminished bowel sounds, soft, tenderness Rectal exam: PRESENT: deferred Musculoskeletal exam: PRESENT: full ROM Neurological exam: PRESENT: alert, awake, oriented to person, oriented to place , oriented to time, CN II-XII grossly intact Psychiatric exam: PRESENT: normal mood Results Laboratory Results: 12/29/16 04:09 12/29/16 04:09 12/29/16 12/29/16 04:09 04:09 WBC 9.5 RBC 3.86 Hgb 12.4 D Hct 35.8 L MCV 93 MCH 32.1 MCHC 34.6 RDW 13.3 Plt Count 257 Sodium 143.0 Potassium 3.4 L Chloride 105 Carbon Dioxide 27 Anion Gap 11 BUN 11 Creatinine 0.47 L Est GFR ( Amer) > 60 Est GFR (Non-Af Amer) > 60 Glucose 97 Calcium 8.5 Impressions: Abdomen/Pelvis CT 12/26/16 00:00 IMPRESSION: Mildly dilated distal small bowel with scattered air-fluid levels. Developing small bowel obstruction cannot be excluded there is a small amount of mesenteric edema and free fluid in the right lower quadrant. The appendix is normal. There is severe gastric distention as well. KUB X-Ray 12/26/16 09:41 IMPRESSION: Nonspecific bowel gas pattern Small Bowel X-Ray 12/27/16 00:00 IMPRESSION: Gastric outlet obstruction. Unable to evaluate small bowel Findings and limitations discussed with the patient's attending surgeon Assessment & Plan - Diagnosis (1) Small bowel obstruction Is this a current diagnosis for this admission?: YesPlan: Ct with NPO; Ct with IV fluids normal saline at 125 cc/hr; Ct with Dilaudid 2mg q2h IV prn; Ct with Zosyn 3.375 g q6h IV; f/u general surgeons for mgt. (2) Hypertension Is this a current diagnosis for this admission?: YesPlan: Ct with Hydralazine 10mg q6h IV prn for now since she is NPO.Add Labetalol 10 mg q6h IV prn. (3) Hypokalemia Is this a current diagnosis for this admission?: YesPlan: Pt received KCL 20 MEQ x3 doses. F/u repeat labs. including Mg. (4) Hyperlipidemia Is this a current diagnosis for this admission?: YesPlan: She is NPO for now; Ct with conservative mgt. (5) Lumbago Is this a current diagnosis for this admission?: YesPlan: Ct with Morphine 4 mg q3h prn IV; Ct with Tylenol 650 mg q6h prn suppository. (6) DVT prophylaxis Is this a current diagnosis for this admission?: YesPlan: Ct with Lovenox 40 mg qd subcut; SCD.
[2016-12-30] MEDS: MORPHINE SULFATE 10 MG/ML INJ IV PRN ×2 (01:42→22:33)
[2016-12-30] MEDS: KETOROLAC TROMETHAMINE INJ/PF 30 MG/1 ML SDV IV PRN ×4 (02:33→22:34)
[2016-12-30 04:37] LABS: ALANINE AMINOTRANSFERASE 35 U/L (9-52); ALBUMIN 3.3 g/dL (3.5-5.0); ALKALINE PHOSPHATASE 76 U/L (38-126); ANION GAP 15 (5-19); ASPARTATE AMINO TRANSFERASE 22 U/L (14-36); BILIRUBIN,DIRECT 0.2 mg/dL (0.0-0.4); BILIRUBIN,TOTAL 0.8 mg/dL (0.2-1.3); BLOOD UREA NITROGEN 9 mg/dL (7-20); CARBON DIOXIDE 23 mmol/L (22-30); CHLORIDE 107 mmol/L (98-107); GLUCOSE 78 mg/dL (75-110); MAGNESIUM 2.1 mg/dL (1.6-2.3); POTASSIUM 3.6 mmol/L (3.6-5.0); SODIUM 144.9 mmol/L (137-145)
[2016-12-30] MEDS: CEFAZOLIN 1 GM/D5W RTU 1 GM/50 ML RTUPB IV SCH ×3 (05:24→21:32)
[2016-12-30] MEDS: ENOXAPARIN SODIUM INJ 40 MG/0.4 ML DISP.SYRIN SUBCUT SCH (08:50)
--- NOTE | 2016-12-30 09:16 | PDOC PROGRESS REPORT ---
Subjective Progress Note for:: 12/30/16 Subjective:: had bm pain under control Physical Exam Vital Signs: Temp Pulse Resp BP Pulse Ox 98.5 F 109 H 20 144/97 H 99 12/29/16 20:15 12/29/16 20:15 12/29/16 20:15 12/29/16 20:15 12/29/16 20:15 Intake & Output 12/29/16 12/30/16 12/31/16 06:59 06:59 06:59 Intake Total 1356 3108 Output Total 3250 2667 Balance -1894 441 GI/Abdominal exam: PRESENT: other - soft abdomen non tender Results Laboratory Results: 12/29/16 04:09 12/30/16 03:45 12/30/16 03:45 Sodium 144.9 Potassium 3.6 Chloride 107 Carbon Dioxide 23 Anion Gap 15 BUN 9 Creatinine 0.50 L Est GFR ( Amer) > 60 Est GFR (Non-Af Amer) > 60 Glucose 78 Calcium 9.0 Magnesium 2.1 Total Bilirubin 0.8 AST 22 ALT 35 Alkaline Phosphatase 76 Total Protein 6.0 L Albumin 3.3 L Impressions: Abdomen/Pelvis CT 12/26/16 00:00 IMPRESSION: Mildly dilated distal small bowel with scattered air-fluid levels. Developing small bowel obstruction cannot be excluded there is a small amount of mesenteric edema and free fluid in the right lower quadrant. The appendix is normal. There is severe gastric distention as well. KUB X-Ray 12/26/16 09:41 IMPRESSION: Nonspecific bowel gas pattern Small Bowel X-Ray 12/27/16 00:00 IMPRESSION: Gastric outlet obstruction. Unable to evaluate small bowel Findings and limitations discussed with the patient's attending surgeon Assessment & Plan - Plan Summary Plan Summary: S/P Lysis of adesions Ileus resolving Keep NG tube
[2016-12-30] MEDS: FAMOTIDINE INJ/PF 20 MG/2 ML SDV IV SCH ×2 (09:25→21:32)
--- NOTE | 2016-12-30 10:14 | PDOC PROGRESS REPORT ---
Subjective Progress Note for:: 12/30/16 Subjective:: Patient is feeling better to some morning. No nausea or vomiting. Had a bowel movement earlier. Still nasogastric tube, still with a lot of aspirate. Patient denies any shortness of breath, chills or fever. Physical Exam Vital Signs: Temp Pulse Resp BP Pulse Ox 98.5 F 101 H 20 156/92 H 99 12/30/16 03:57 12/30/16 03:57 12/30/16 03:57 12/30/16 03:57 12/30/16 03:57 Intake & Output 12/29/16 12/30/16 12/31/16 06:59 06:59 06:59 Intake Total 1356 3108 Output Total 3250 2667 Balance -1894 441 General appearance: PRESENT: no acute distress, cooperative, obese Head exam: PRESENT: normocephalic Eye exam: PRESENT: EOMI Mouth exam: PRESENT: moist, neck supple Neck exam: ABSENT: JVD Respiratory exam: PRESENT: clear to auscultation kianna. ABSENT: rhonchi, wheezes Cardiovascular exam: PRESENT: RRR, tachycardia GI/Abdominal exam: PRESENT: hypoactive bowel sounds, soft, tenderness - Mild tenderness. ABSENT: distended Extremities exam: ABSENT: pedal edema Neurological exam: PRESENT: alert, awake, oriented to situation Skin exam: PRESENT: dry, warm. ABSENT: cyanosis Results Laboratory Results: 12/29/16 04:09 12/30/16 03:45 12/30/16 03:45 Sodium 144.9 Potassium 3.6 Chloride 107 Carbon Dioxide 23 Anion Gap 15 BUN 9 Creatinine 0.50 L Est GFR ( Amer) > 60 Est GFR (Non-Af Amer) > 60 Glucose 78 Calcium 9.0 Magnesium 2.1 Total Bilirubin 0.8 AST 22 ALT 35 Alkaline Phosphatase 76 Total Protein 6.0 L Albumin 3.3 L Impressions: Abdomen/Pelvis CT 12/26/16 00:00 IMPRESSION: Mildly dilated distal small bowel with scattered air-fluid levels. Developing small bowel obstruction cannot be excluded there is a small amount of mesenteric edema and free fluid in the right lower quadrant. The appendix is normal. There is severe gastric distention as well. KUB X-Ray 12/26/16 09:41 IMPRESSION: Nonspecific bowel gas pattern Small Bowel X-Ray 12/27/16 00:00 IMPRESSION: Gastric outlet obstruction. Unable to evaluate small bowel Findings and limitations discussed with the patient's attending surgeon Assessment & Plan - Diagnosis (1) Hypertension Qualifiers: Hypertension type: essential hypertension Qualified Code(s): I10 - Essential (primary) hypertension Is this a current diagnosis for this admission?: Yes (2) Hypokalemia Is this a current diagnosis for this admission?: Yes (3) Hyperlipidemia Qualifiers: Hyperlipidemia type: unspecified Qualified Code(s): E78.5 - Hyperlipidemia, unspecified Is this a current diagnosis for this admission?: Yes (4) Lumbago Qualifiers: Chronicity: unspecified Back pain laterality: unspecified Sciatica presence: unspecified whether sciatica present Qualified Code(s): M54.5 - Low back pain Is this a current diagnosis for this admission?: Yes (5) Small bowel obstruction Is this a current diagnosis for this admission?: Yes - Time Time Spent with patient: 25-34 minutes - Plan Summary Plan Summary: History and physical examination and interval history reviewed. Patient seems to be improving. Remained on nasogastric tube however.. Continue electrolytes. We will discontinue labetalol when necessary, instead put her on scheduled intravenous Lopressor for blood pressure and heart rate control. Continue when necessary hydralazine. We will continue to follow.
[2016-12-30] MEDS: METOPROLOL TARTRATE PF/INJ 5 MG/5 ML SDV IV SCH ×2 (12:22→17:43)
[2016-12-30] MEDS: NORMAL SALINE 1000 ML 1,000 ML IV PRN ×2 (12:23→21:31)
[2016-12-30] MEDS: HYDRALAZINE HCL INJ/PF 20 MG/1 ML SDV IV PRN (18:45)
[2016-12-31] MEDS: METOPROLOL TARTRATE PF/INJ 5 MG/5 ML SDV IV SCH ×4 (00:16→17:16)
[2016-12-31 04:45] LABS: HEMATOCRIT 33.3 % (36.0-47.0); HEMOGLOBIN 11.6 g/dL (12.0-15.5); HGB HCT DIFFERENCE 1.5; MEAN CORPUSCULAR HEMOGLOBIN 31.7 pg (27.0-33.4); MEAN CORPUSCULAR HGB CONC 34.8 g/dL (32.0-36.0); MEAN CORPUSCULAR VOLUME 91 fl (80-97); RED BLOOD COUNT 3.66 10^6/uL (3.72-5.28); RED CELL DISTRIBUTION WIDTH 13.1 % (11.5-14.0); WHITE BLOOD COUNT 8.8 10^3/uL (4.0-10.5)
[2016-12-31 05:06] LABS: ALANINE AMINOTRANSFERASE 34 U/L (9-52); ALBUMIN 3.1 g/dL (3.5-5.0); ALKALINE PHOSPHATASE 71 U/L (38-126); ANION GAP 17 (5-19); ASPARTATE AMINO TRANSFERASE 22 U/L (14-36); BILIRUBIN,DIRECT 0.2 mg/dL (0.0-0.4); BILIRUBIN,TOTAL 0.8 mg/dL (0.2-1.3); BLOOD UREA NITROGEN 12 mg/dL (7-20); CALCIUM 8.8 mg/dL (8.4-10.2); CARBON DIOXIDE 22 mmol/L (22-30); CHLORIDE 109 mmol/L (98-107); GLUCOSE 75 mg/dL (75-110); POTASSIUM 3.1 mmol/L (3.6-5.0); TOTAL PROTEIN 5.7 g/dL (6.3-8.2)
[2016-12-31] MEDS: CEFAZOLIN 1 GM/D5W RTU 1 GM/50 ML RTUPB IV SCH ×3 (05:57→21:26)
[2016-12-31] MEDS: NORMAL SALINE 1000 ML 1,000 ML IV PRN ×2 (07:58→16:23)
[2016-12-31] MEDS: ENOXAPARIN SODIUM INJ 40 MG/0.4 ML DISP.SYRIN SUBCUT SCH (08:09)
[2016-12-31] MEDS: HYDRALAZINE HCL INJ/PF 20 MG/1 ML SDV IV PRN ×2 (08:10→21:26)
--- NOTE | 2016-12-31 08:57 | PDOC PROGRESS REPORT ---
Subjective Progress Note for:: 12/31/16 Subjective:: Patient continues to improve symptomatically. Patient reports less drainage on the nasogastric tube. Denies any shortness of breath or chest pain, no nausea or vomiting, positive flattus. No PND or orthopnea. Physical Exam Vital Signs: Temp Pulse Resp BP Pulse Ox 98.2 F 87 17 153/95 H 97 12/31/16 08:00 12/31/16 08:00 12/31/16 08:00 12/31/16 08:00 12/31/16 08:00 Intake & Output 12/30/16 12/31/16 01/01/17 06:59 06:59 06:59 Intake Total 3108 3328 Output Total 2667 2000 Balance 441 1328 General appearance: PRESENT: no acute distress, cooperative, obese Head exam: PRESENT: normocephalic Eye exam: PRESENT: EOMI Mouth exam: PRESENT: moist, neck supple Neck exam: ABSENT: JVD Respiratory exam: PRESENT: clear to auscultation kianna. ABSENT: rhonchi, wheezes Cardiovascular exam: PRESENT: RRR. ABSENT: gallop GI/Abdominal exam: PRESENT: hypoactive bowel sounds, soft Extremities exam: ABSENT: pedal edema Neurological exam: PRESENT: alert, awake, oriented to situation Skin exam: PRESENT: dry, warm. ABSENT: cyanosis Results Laboratory Results: 12/31/16 03:48 12/31/16 03:48 12/31/16 12/31/16 03:48 03:48 WBC 8.8 RBC 3.66 L Hgb 11.6 L Hct 33.3 L MCV 91 MCH 31.7 MCHC 34.8 RDW 13.1 Plt Count 291 Sodium 148.0 H Potassium 3.1 L Chloride 109 H Carbon Dioxide 22 Anion Gap 17 BUN 12 Creatinine 0.50 L Est GFR ( Amer) > 60 Est GFR (Non-Af Amer) > 60 Glucose 75 Calcium 8.8 Total Bilirubin 0.8 AST 22 ALT 34 Alkaline Phosphatase 71 Total Protein 5.7 L Albumin 3.1 L Impressions: Abdomen/Pelvis CT 12/26/16 00:00 IMPRESSION: Mildly dilated distal small bowel with scattered air-fluid levels. Developing small bowel obstruction cannot be excluded there is a small amount of mesenteric edema and free fluid in the right lower quadrant. The appendix is normal. There is severe gastric distention as well. KUB X-Ray 12/26/16 09:41 IMPRESSION: Nonspecific bowel gas pattern Small Bowel X-Ray 12/27/16 00:00 IMPRESSION: Gastric outlet obstruction. Unable to evaluate small bowel Findings and limitations discussed with the patient's attending surgeon Assessment & Plan - Diagnosis (1) Hypertension Qualifiers: Hypertension type: essential hypertension Qualified Code(s): I10 - Essential (primary) hypertension Is this a current diagnosis for this admission?: Yes (2) Hypokalemia Is this a current diagnosis for this admission?: Yes (3) Hyperlipidemia Qualifiers: Hyperlipidemia type: unspecified Qualified Code(s): E78.5 - Hyperlipidemia, unspecified Is this a current diagnosis for this admission?: Yes (4) Lumbago Qualifiers: Chronicity: unspecified Back pain laterality: unspecified Sciatica presence: unspecified whether sciatica present Qualified Code(s): M54.5 - Low back pain Is this a current diagnosis for this admission?: Yes (5) Small bowel obstruction Is this a current diagnosis for this admission?: Yes - Time Time Spent with patient: 15-24 minutes - Plan Summary Plan Summary: We are going to increase the metoprolol 5 mg IV every 6. We will replace electrolytes and recheck levels in the morning. We will transition to oral blood pressure medications when off NGT and tolerating oral intake. Continue supportive care.
[2016-12-31] MEDS: POTASSI CL 20 MEQ/50 ML RIDER 50 ML IV SCH ×3 (10:06→16:23)
[2016-12-31] MEDS: FAMOTIDINE INJ/PF 20 MG/2 ML SDV IV SCH ×2 (10:06→21:26)
--- NOTE | 2016-12-31 13:58 | PDOC PROGRESS REPORT ---
Subjective Progress Note for:: 12/31/16 Subjective:: had bm, still has high NG out put up to a liter a day Physical Exam Vital Signs: Temp Pulse Resp BP Pulse Ox 97.7 F 83 17 140/81 H 98 12/31/16 11:48 12/31/16 11:48 12/31/16 11:48 12/31/16 11:48 12/31/16 11:48 Intake & Output 12/30/16 12/31/16 01/01/17 06:59 06:59 06:59 Intake Total 3108 3328 Output Total 2667 2000 Balance 441 1328 GI/Abdominal exam: PRESENT: other - soft, distention present , active bowel sounds Results Laboratory Results: 12/31/16 03:48 12/31/16 03:48 12/31/16 12/31/16 03:48 03:48 WBC 8.8 RBC 3.66 L Hgb 11.6 L Hct 33.3 L MCV 91 MCH 31.7 MCHC 34.8 RDW 13.1 Plt Count 291 Sodium 148.0 H Potassium 3.1 L Chloride 109 H Carbon Dioxide 22 Anion Gap 17 BUN 12 Creatinine 0.50 L Est GFR ( Amer) > 60 Est GFR (Non-Af Amer) > 60 Glucose 75 Calcium 8.8 Total Bilirubin 0.8 AST 22 ALT 34 Alkaline Phosphatase 71 Total Protein 5.7 L Albumin 3.1 L Impressions: Abdomen/Pelvis CT 12/26/16 00:00 IMPRESSION: Mildly dilated distal small bowel with scattered air-fluid levels. Developing small bowel obstruction cannot be excluded there is a small amount of mesenteric edema and free fluid in the right lower quadrant. The appendix is normal. There is severe gastric distention as well. KUB X-Ray 12/26/16 09:41 IMPRESSION: Nonspecific bowel gas pattern Small Bowel X-Ray 12/27/16 00:00 IMPRESSION: Gastric outlet obstruction. Unable to evaluate small bowel Findings and limitations discussed with the patient's attending surgeon Assessment & Plan - Plan Summary Plan Summary: Ilus resoving - but slow Keep NG tube today Allow po clears
[2017-01-01] MEDS: METOPROLOL TARTRATE PF/INJ 5 MG/5 ML SDV IV SCH ×4 (00:02→18:09)
[2017-01-01] MEDS: NORMAL SALINE 1000 ML 1,000 ML IV PRN ×2 (00:03→10:55)
[2017-01-01] MEDS: MORPHINE SULFATE 10 MG/ML INJ IV PRN (03:43)
[2017-01-01] MEDS: HYDRALAZINE HCL INJ/PF 20 MG/1 ML SDV IV PRN (03:43)
[2017-01-01 04:45] LABS: HEMOGLOBIN 12.3 g/dL (12.0-15.5); HGB HCT DIFFERENCE 1.9; MEAN CORPUSCULAR HGB CONC 35.1 g/dL (32.0-36.0); MEAN CORPUSCULAR VOLUME 91 fl (80-97); RED BLOOD COUNT 3.85 10^6/uL (3.72-5.28); RED CELL DISTRIBUTION WIDTH 13.4 % (11.5-14.0); WHITE BLOOD COUNT 9.7 10^3/uL (4.0-10.5)
[2017-01-01 04:57] LABS: ANION GAP 15 (5-19); BLOOD UREA NITROGEN 5 mg/dL (7-20); CALCIUM 9.1 mg/dL (8.4-10.2); CARBON DIOXIDE 23 mmol/L (22-30); CHLORIDE 104 mmol/L (98-107); CREATININE RESULT 0.45 mg/dL (0.52-1.25); GLUCOSE 91 mg/dL (75-110); POTASSIUM 3.5 mmol/L (3.6-5.0); SODIUM 142.3 mmol/L (137-145)
[2017-01-01] MEDS: CEFAZOLIN 1 GM/D5W RTU 1 GM/50 ML RTUPB IV SCH ×3 (05:26→21:18)
--- NOTE | 2017-01-01 09:35 | PDOC PROGRESS REPORT ---
Subjective Progress Note for:: 01/01/17 Subjective:: Still has nasogastric tube in; voiding; has had multiple stools, loose Physical Exam Vital Signs: Temp Pulse Resp BP Pulse Ox 98.4 F 93 17 153/89 H 97 01/01/17 07:36 01/01/17 07:36 01/01/17 07:36 01/01/17 07:36 01/01/17 07:36 Intake & Output 12/31/16 01/01/17 01/02/17 06:59 06:59 06:59 Intake Total 3328 2840 Output Total 2000 Balance 1328 2840 General appearance: PRESENT: no acute distress GI/Abdominal exam: PRESENT: other - Abdomen: Soft or some bruising left of midline janneth intact dressing left off. Results Laboratory Results: 01/01/17 03:56 01/01/17 03:56 01/01/17 01/01/17 03:56 03:56 WBC 9.7 RBC 3.85 Hgb 12.3 Hct 35.0 L MCV 91 MCH 32.0 MCHC 35.1 RDW 13.4 Plt Count 302 Sodium 142.3 Potassium 3.5 L Chloride 104 Carbon Dioxide 23 Anion Gap 15 BUN 5 L Creatinine 0.45 L Est GFR ( Amer) > 60 Est GFR (Non-Af Amer) > 60 Glucose 91 Calcium 9.1 Impressions: Abdomen/Pelvis CT 12/26/16 00:00 IMPRESSION: Mildly dilated distal small bowel with scattered air-fluid levels. Developing small bowel obstruction cannot be excluded there is a small amount of mesenteric edema and free fluid in the right lower quadrant. The appendix is normal. There is severe gastric distention as well. KUB X-Ray 12/26/16 09:41 IMPRESSION: Nonspecific bowel gas pattern Small Bowel X-Ray 12/27/16 00:00 IMPRESSION: Gastric outlet obstruction. Unable to evaluate small bowel Findings and limitations discussed with the patient's attending surgeon Assessment & Plan - Diagnosis (1) Small bowel obstruction Is this a current diagnosis for this admission?: YesPlan: Patient is 5 days post-exploratory laparotomy, lysis of adhesions with resolving ileus. Plan for the day 1. NG tube, we'll remove his tolerated by patient 2. Replace potassium intravenously. 3. Get patient up and ambulating.
[2017-01-01] MEDS: ENOXAPARIN SODIUM INJ 40 MG/0.4 ML DISP.SYRIN SUBCUT SCH (10:53)
[2017-01-01] MEDS: FAMOTIDINE INJ/PF 20 MG/2 ML SDV IV SCH ×2 (10:53→21:18)
[2017-01-01] MEDS: POTASSI CL 20 MEQ/50 ML RIDER 20 MEQ/50 ML RTUPB IV SCH ×3 (10:54→18:07)
--- NOTE | 2017-01-01 16:33 | PDOC PROGRESS REPORT ---
Subjective Progress Note for:: 01/01/17 Subjective:: She is day 5 post op for laparotomy for small bowel obstruction. She is has passed flatus and some bowel movement and post-op pain has improved. We will ct with Metoprolol IV and Hydralazine IV prn to help optimize BP control since she is still NPO.Her potassium was 3.5 today has been replaced by the surgeons.Follow up repeat labs.NG tube was removed and she is to start ambulation as tolerated. We will possibly start her on PO antihypertensives from tomorrow if she tolerates PO intake. Physical Exam Vital Signs: Temp Pulse Resp BP Pulse Ox 98.4 F 74 17 156/85 H 96 01/01/17 12:00 01/01/17 12:00 01/01/17 12:00 01/01/17 12:00 01/01/17 12:00 Intake & Output 12/31/16 01/01/17 01/02/17 06:59 06:59 06:59 Intake Total 3328 2840 Output Total 2000 Balance 1328 2840 General appearance: PRESENT: no acute distress, well-developed, well-nourished Head exam: PRESENT: atraumatic, normocephalic Eye exam: PRESENT: EOMI, PERRLA Ear exam: PRESENT: normal external ear exam, TM's normal bilaterally Mouth exam: PRESENT: neck supple, tongue midline Neck exam: PRESENT: full ROM Respiratory exam: PRESENT: clear to auscultation kianna, symmetrical Cardiovascular exam: PRESENT: +S1, +S2 Pulses: PRESENT: +2 pedal pulses bilateral GI/Abdominal exam: PRESENT: diminished bowel sounds, soft, tenderness Rectal exam: PRESENT: deferred Neurological exam: PRESENT: alert, awake, oriented to person, oriented to place , oriented to time, CN II-XII grossly intact Psychiatric exam: PRESENT: normal mood Results Laboratory Results: 01/01/17 03:56 01/01/17 03:56 01/01/17 01/01/17 03:56 03:56 WBC 9.7 RBC 3.85 Hgb 12.3 Hct 35.0 L MCV 91 MCH 32.0 MCHC 35.1 RDW 13.4 Plt Count 302 Sodium 142.3 Potassium 3.5 L Chloride 104 Carbon Dioxide 23 Anion Gap 15 BUN 5 L Creatinine 0.45 L Est GFR ( Amer) > 60 Est GFR (Non-Af Amer) > 60 Glucose 91 Calcium 9.1 Impressions: Abdomen/Pelvis CT 12/26/16 00:00 IMPRESSION: Mildly dilated distal small bowel with scattered air-fluid levels. Developing small bowel obstruction cannot be excluded there is a small amount of mesenteric edema and free fluid in the right lower quadrant. The appendix is normal. There is severe gastric distention as well. KUB X-Ray 12/26/16 09:41 IMPRESSION: Nonspecific bowel gas pattern Small Bowel X-Ray 12/27/16 00:00 IMPRESSION: Gastric outlet obstruction. Unable to evaluate small bowel Findings and limitations discussed with the patient's attending surgeon Assessment & Plan - Diagnosis (1) Small bowel obstruction Is this a current diagnosis for this admission?: YesPlan: NG tube was removed today;Ct with ambulation and gradual introduction of po intake. Ct with Dilaudid 2mg q2h IV prn; Ct with Zosyn 3.375 g q6h IV; f/u general surgeons for mgt. (2) Hypertension Qualifiers: Hypertension type: essential hypertension Qualified Code(s): I10 - Essential (primary) hypertension Is this a current diagnosis for this admission?: YesPlan: Ct with Hydralazine 10mg q6h IV prn for now. Ct with Metoprolol 5 mg q6h IV .Consider po meds from tomorrow. (3) Hypokalemia Is this a current diagnosis for this admission?: YesPlan: Pt received KCL 20 MEQ x3 doses. F/u repeat labs. including Mg. (4) Hyperlipidemia Qualifiers: Hyperlipidemia type: unspecified Qualified Code(s): E78.5 - Hyperlipidemia, unspecified Is this a current diagnosis for this admission?: YesPlan: She is NPO for now; Ct with conservative mgt. (5) Lumbago Qualifiers: Chronicity: unspecified Back pain laterality: unspecified Sciatica presence: unspecified whether sciatica present Qualified Code(s): M54.5 - Low back pain Is this a current diagnosis for this admission?: YesPlan: Ct with Morphine 4 mg q3h prn IV; Ct with Tylenol 650 mg q6h prn suppository. (6) DVT prophylaxis Is this a current diagnosis for this admission?: YesPlan: Ct with Lovenox 40 mg qd subcut; SCD.
[2017-01-02] MEDS ORDERED: LABETALOL HCL INJ 20 MG/4 ML DISP.SYRIN IV SCH
[2017-01-02] MEDS: METOPROLOL TARTRATE PF/INJ 5 MG/5 ML SDV IV SCH ×4 (01:12→18:24)
[2017-01-02] MEDS: HYDRALAZINE HCL INJ/PF 20 MG/1 ML SDV IV PRN ×2 (01:12→10:49)
[2017-01-02] MEDS: CEFAZOLIN 1 GM/D5W RTU 1 GM/50 ML RTUPB IV SCH ×3 (05:38→21:34)
[2017-01-02] MEDS: ENOXAPARIN SODIUM INJ 40 MG/0.4 ML DISP.SYRIN SUBCUT SCH (07:53)
--- NOTE | 2017-01-02 09:18 | PROGRESS NOTE E ---
Progress Note NAME: LEELEE HANDY : 1960 AGE: 56Y DATE: 01/02/2017 ROOM: 405 SUBJECTIVE: This is postop day 6. She is tolerating clear liquids this morning and just had a small amount of flatus. Her white count remained normal and also remained afebrile. Her potassium is 3.5. PLAN: Gradually increase her diet and activity. She claims she is not taking any pain medications at this time because the pains are tolerable. DICTATING PHYSICIAN: ESTEVAN GALLEGOS M.D. [id number] PHY#: [id number] ID: [id number] JOB#: [id number] ACCT: [id number] cc: >
[2017-01-02] MEDS: FAMOTIDINE INJ/PF 20 MG/2 ML SDV IV SCH ×2 (10:50→21:34)
[2017-01-02] MEDS ORDERED: ACETAMINOPHEN 325 MG TABLET PO PRN (12:42)
--- NOTE | 2017-01-02 13:03 | PDOC PROGRESS REPORT ---
Subjective Progress Note for:: 01/02/17 Subjective:: She is day 6 post op for laparotomy for small bowel obstruction. She is has passed flatus and some bowel movement and post-op pain has improved. We will ct with Metoprolol IV and Hydralazine IV prn to help optimize BP control since she is still NPO.Her potassium was 3.5 today has been replaced by the surgeons.Follow up repeat labs.NG tube was removed and she has been ambulating well. We will possibly start her on PO antihypertensives from tomorrow since she tolerated PO clear liquid and her diet will be advanced as indicated by surgeons.. Physical Exam Vital Signs: Temp Pulse Resp BP Pulse Ox 98.6 F 92 14 141/92 H 98 01/02/17 11:29 01/02/17 11:29 01/02/17 11:29 01/02/17 11:29 01/02/17 11:29 Intake & Output 01/01/17 01/02/17 01/03/17 06:59 06:59 06:59 Intake Total 2840 2713 Balance 2840 2713 General appearance: PRESENT: well-developed, well-nourished Head exam: PRESENT: atraumatic, normocephalic Ear exam: PRESENT: TM's normal bilaterally Mouth exam: PRESENT: neck supple, tongue midline Neck exam: PRESENT: full ROM Respiratory exam: PRESENT: clear to auscultation kianna, symmetrical Cardiovascular exam: PRESENT: +S1, +S2 Pulses: PRESENT: +2 pedal pulses bilateral GI/Abdominal exam: PRESENT: soft, tenderness Rectal exam: PRESENT: deferred Extremities exam: PRESENT: full ROM Musculoskeletal exam: PRESENT: ambulatory Neurological exam: PRESENT: alert, awake, oriented to person, oriented to place , oriented to time, CN II-XII grossly intact Psychiatric exam: PRESENT: normal mood Results Laboratory Results: 01/01/17 03:56 01/01/17 03:56 Impressions: Abdomen/Pelvis CT 12/26/16 00:00 IMPRESSION: Mildly dilated distal small bowel with scattered air-fluid levels. Developing small bowel obstruction cannot be excluded there is a small amount of mesenteric edema and free fluid in the right lower quadrant. The appendix is normal. There is severe gastric distention as well. KUB X-Ray 12/26/16 09:41 IMPRESSION: Nonspecific bowel gas pattern Small Bowel X-Ray 12/27/16 00:00 IMPRESSION: Gastric outlet obstruction. Unable to evaluate small bowel Findings and limitations discussed with the patient's attending surgeon Assessment & Plan - Diagnosis (1) Small bowel obstruction Is this a current diagnosis for this admission?: YesPlan: NG tube was removed today;Ct with ambulation and gradual introduction of po intake. Ct with Dilaudid 2mg q2h IV prn; Ct with Zosyn 3.375 g q6h IV; f/u general surgeons for mgt. (2) Hypertension Qualifiers: Hypertension type: essential hypertension Qualified Code(s): I10 - Essential (primary) hypertension Is this a current diagnosis for this admission?: YesPlan: Ct with Hydralazine 10mg q6h IV prn for now. Ct with Metoprolol 5 mg q6h IV .Consider po meds from tomorrow. (3) Hypokalemia Is this a current diagnosis for this admission?: YesPlan: Pt received KCL 20 MEQ x3 doses. F/u repeat labs. including Mg. (4) Hyperlipidemia Qualifiers: Hyperlipidemia type: unspecified Qualified Code(s): E78.5 - Hyperlipidemia, unspecified Is this a current diagnosis for this admission?: YesPlan: She is NPO for now; Ct with conservative mgt. (5) Lumbago Qualifiers: Chronicity: unspecified Back pain laterality: unspecified Sciatica presence: unspecified whether sciatica present Qualified Code(s): M54.5 - Low back pain Is this a current diagnosis for this admission?: YesPlan: Ct with Morphine 4 mg q3h prn IV; Ct with Tylenol 650 mg q6h prn suppository. (6) DVT prophylaxis Is this a current diagnosis for this admission?: YesPlan: Ct with Lovenox 40 mg qd subcut; SCD.
[2017-01-02] MEDS: NORMAL SALINE 1000 ML 1,000 ML IV PRN (13:31)
[2017-01-02 14:01] LABS: ANION GAP 12 (5-19); BLOOD UREA NITROGEN 6 mg/dL (7-20); CALCIUM 9.7 mg/dL (8.4-10.2); CARBON DIOXIDE 27 mmol/L (22-30); CHLORIDE 104 mmol/L (98-107); GLUCOSE 105 mg/dL (75-110); POTASSIUM 3.8 mmol/L (3.6-5.0); SODIUM 142.8 mmol/L (137-145)
[2017-01-02] MEDS ORDERED: LABETALOL HCL INJ 20 MG/4 ML DISP.SYRIN IV ONE (19:00)
[2017-01-02] MEDS: LABETALOL HCL INJ 200 MG/40 ML VIAL IV SCH (20:09)
[2017-01-03] MEDS: LABETALOL HCL INJ 200 MG/40 ML VIAL IV SCH ×4 (00:59→19:19)
[2017-01-03 05:14] LABS: ABSOLUTE EOSINOPHILS # (AUTO) 0.1 10^3/uL (0.0-0.6); ABSOLUTE LYMPHOCYTES (AUTO) 2.8 10^3/uL (0.5-4.7); ABSOLUTE MONOCYTES (AUTO) 0.5 10^3/uL (0.1-1.4); ABSOLUTE NEUT (AUTO) 4.7 10^3/uL (1.7-8.2); BASOPHILS % (AUTO) 0.3 % (0-2); EOSINOPHILS % (AUTO) 1.7 % (0-6); HEMATOCRIT 35.2 % (36.0-47.0); HEMOGLOBIN 12.5 g/dL (12.0-15.5); HGB HCT DIFFERENCE 2.3; MEAN CORPUSCULAR HGB CONC 35.4 g/dL (32.0-36.0); MEAN CORPUSCULAR VOLUME 91 fl (80-97); RED BLOOD COUNT 3.89 10^6/uL (3.72-5.28); RED CELL DISTRIBUTION WIDTH 13.5 % (11.5-14.0); WHITE BLOOD COUNT 8.1 10^3/uL (4.0-10.5)
[2017-01-03 05:24] LABS: ANION GAP 13 (5-19); BLOOD UREA NITROGEN 6 mg/dL (7-20); CALCIUM 9.1 mg/dL (8.4-10.2); CARBON DIOXIDE 23 mmol/L (22-30); CHLORIDE 105 mmol/L (98-107); CREATININE RESULT 0.53 mg/dL (0.52-1.25); GLUCOSE 106 mg/dL (75-110); POTASSIUM 3.9 mmol/L (3.6-5.0); SODIUM 141.3 mmol/L (137-145)
[2017-01-03] MEDS: CEFAZOLIN 1 GM/D5W RTU 1 GM/50 ML RTUPB IV SCH ×2 (06:06→15:18)
[2017-01-03] MEDS: ENOXAPARIN SODIUM INJ 40 MG/0.4 ML DISP.SYRIN SUBCUT SCH (07:55)
[2017-01-03] MEDS: FAMOTIDINE INJ/PF 20 MG/2 ML SDV IV SCH ×2 (09:23→21:20)
--- NOTE | 2017-01-03 09:58 | PROGRESS NOTE E ---
Progress Note NAME: LEELEE HANDY : 1960 AGE: 56Y DATE: 01/03/2017 ROOM: 405 SUBJECTIVE: The patient is feeling a lot better this morning. She has been passing flatus. She is also tolerating clear liquids. OBJECTIVE: VITAL SIGNS: Temperature 98.5 and heart rate 85 per minute with a blood pressure of 164/93. Her white count remains normal at 7.1 from 2 days ago. Her hemoglobin was 7.7 two days ago and this will be repeated this morning. PLAN: Further plan is to start her on a soft diet and discontinue the IV fluids in preparation for eventual discharge in 24 hours. DICTATING PHYSICIAN: ESTEVAN GALLEGOS M.D. [id number] PHMarco#: [id number] ID: [id number] JOB#: [id number] ACCT: [id number] cc: >
--- NOTE | 2017-01-03 16:11 | PDOC PROGRESS REPORT ---
Subjective Progress Note for:: 01/03/17 Subjective:: She is day 7 post op for laparotomy for small bowel obstruction. She is has passed flatus and some bowel movement and post-op pain has improved. We will ct with Metoprolol IV and Hydralazine IV prn to help optimize BP control and add Amlodipine 10 mg qd po.Her potassium today is 3.9.The surgeons plan to discharge her home tomorrow.I will sign off today will follow up with her in the clinic. Physical Exam Vital Signs: Temp Pulse Resp BP Pulse Ox 99.0 F 77 15 139/88 H 98 01/03/17 12:00 01/03/17 12:00 01/03/17 12:00 01/03/17 12:00 01/03/17 12:00 Intake & Output 01/02/17 01/03/17 01/04/17 06:59 06:59 06:59 Intake Total 2713 2898 Output Total 200 Balance 2713 2698 General appearance: PRESENT: well-developed, well-nourished Head exam: PRESENT: atraumatic, normocephalic Eye exam: PRESENT: EOMI, PERRLA Ear exam: PRESENT: TM's normal bilaterally Mouth exam: PRESENT: moist, neck supple Respiratory exam: PRESENT: clear to auscultation kianna, symmetrical Cardiovascular exam: PRESENT: +S1, +S2 Pulses: PRESENT: +2 pedal pulses bilateral GI/Abdominal exam: PRESENT: normal bowel sounds, soft, tenderness Rectal exam: PRESENT: deferred Extremities exam: PRESENT: full ROM Musculoskeletal exam: PRESENT: ambulatory, full ROM Neurological exam: PRESENT: alert, awake, oriented to person, oriented to place , oriented to time Psychiatric exam: PRESENT: normal mood Results Laboratory Results: 01/03/17 04:40 01/03/17 04:40 01/03/17 01/03/17 04:40 04:40 WBC 8.1 RBC 3.89 Hgb 12.5 Hct 35.2 L MCV 91 MCH 32.0 MCHC 35.4 RDW 13.5 Plt Count 321 Seg Neutrophils % 58.0 Lymphocytes % 34.0 Monocytes % 6.0 Eosinophils % 1.7 Basophils % 0.3 Absolute Neutrophils 4.7 Absolute Lymphocytes 2.8 Absolute Monocytes 0.5 Absolute Eosinophils 0.1 Absolute Basophils 0.0 Sodium 141.3 Potassium 3.9 Chloride 105 Carbon Dioxide 23 Anion Gap 13 BUN 6 L Creatinine 0.53 Est GFR ( Amer) > 60 Est GFR (Non-Af Amer) > 60 Glucose 106 Calcium 9.1 Impressions: Abdomen/Pelvis CT 12/26/16 00:00 IMPRESSION: Mildly dilated distal small bowel with scattered air-fluid levels. Developing small bowel obstruction cannot be excluded there is a small amount of mesenteric edema and free fluid in the right lower quadrant. The appendix is normal. There is severe gastric distention as well. KUB X-Ray 12/26/16 09:41 IMPRESSION: Nonspecific bowel gas pattern Small Bowel X-Ray 12/27/16 00:00 IMPRESSION: Gastric outlet obstruction. Unable to evaluate small bowel Findings and limitations discussed with the patient's attending surgeon Assessment & Plan - Diagnosis (1) Small bowel obstruction Is this a current diagnosis for this admission?: YesPlan: Ct with ambulation and upgrade to 2 g sodium diet since she tolerated full liquid diet. Ct with Dilaudid 2mg q2h IV prn; Ct with Cefazolin 1G q8h IV; f/u general surgeons for mgt. (2) Hypertension Qualifiers: Hypertension type: essential hypertension Qualified Code(s): I10 - Essential (primary) hypertension Is this a current diagnosis for this admission?: YesPlan: Ct with Hydralazine 10mg q6h IV prn for now. Ct with Labetalol 10 mg q6h IV prn .Add Amlodipine 10 mg qd po (3) Hypokalemia Is this a current diagnosis for this admission?: YesPlan: Her K is 3.9. This corrected. Monitor chemistry daily.. (4) Hyperlipidemia Qualifiers: Hyperlipidemia type: unspecified Qualified Code(s): E78.5 - Hyperlipidemia, unspecified Is this a current diagnosis for this admission?: YesPlan: She is NPO for now; Ct with conservative mgt. (5) Lumbago Qualifiers: Chronicity: unspecified Back pain laterality: unspecified Sciatica presence: unspecified whether sciatica present Qualified Code(s): M54.5 - Low back pain Is this a current diagnosis for this admission?: YesPlan: Ct with Morphine 4 mg q4h prn IV; Ct with Tylenol 650 mg q6h prn po. (6) DVT prophylaxis Is this a current diagnosis for this admission?: YesPlan: Ct with Lovenox 40 mg qd subcut; SCD.
[2017-01-03] MEDS: HYDROMORPHONE HCL INJ/PF 2 MG/ML AMPULE IV PRN (16:49)
[2017-01-03] MEDS ORDERED: AMLODIPINE BESYLATE 10 MG TABLET PO ONE (17:00)
[2017-01-04] MEDS: LABETALOL HCL INJ 200 MG/40 ML VIAL IV SCH ×5 (01:24→23:55)
[2017-01-04] MEDS: MORPHINE SULFATE 10 MG/ML INJ IV PRN ×3 (04:55→13:40)
--- NOTE | 2017-01-04 07:53 | PROGRESS NOTE E ---
Progress Note NAME: LEELEE HANDY : 1960 AGE: 56Y DATE: 01/04/2017 ROOM: 405 SUBJECTIVE: Patient complained of bloating last night with some nausea. She did have a bite of regular food the other day. She continues to pass flatus. Today, she complained of also diarrhea and her abdomen is slightly distended and with mild tenderness. OBJECTIVE: VITAL SIGNS: She is afebrile and her heart rate is at 87 per minute with a blood pressure 134/84. PLAN: I have told the nurses to keep her on clear liquid and check the stool for C. diff. DICTATING PHYSICIAN: ESTEVAN GALLEGOS M.D. [id number] [facility]#: [id number] ID: [id number] JOB#: [id number] ACCT: [id number] cc: >
[2017-01-04] MEDS: FAMOTIDINE INJ/PF 20 MG/2 ML SDV IV SCH ×2 (09:01→23:48)
[2017-01-04] MEDS: ENOXAPARIN SODIUM INJ 40 MG/0.4 ML DISP.SYRIN SUBCUT SCH (09:02)
[2017-01-04] MEDS ORDERED: AMLODIPINE BESYLATE 10 MG TABLET PO SCH (10:00)
[2017-01-04 10:22] LABS: ABSOLUTE EOSINOPHILS # (AUTO) 0.2 10^3/uL (0.0-0.6); ABSOLUTE MONOCYTES (AUTO) 0.4 10^3/uL (0.1-1.4); ABSOLUTE NEUT (AUTO) 4.4 10^3/uL (1.7-8.2); BASOPHILS % (AUTO) 0.4 % (0-2); EOSINOPHILS % (AUTO) 2.3 % (0-6); HEMATOCRIT 37.5 % (36.0-47.0); HEMOGLOBIN 12.8 g/dL (12.0-15.5); HGB HCT DIFFERENCE 0.9; LYMPHOCYTES % (AUTO) 28.2 % (13-45); MEAN CORPUSCULAR HEMOGLOBIN 31.3 pg (27.0-33.4); MEAN CORPUSCULAR HGB CONC 34.1 g/dL (32.0-36.0); MEAN CORPUSCULAR VOLUME 92 fl (80-97); MONOCYTES % (AUTO) 6.2 % (3-13); RED BLOOD COUNT 4.08 10^6/uL (3.72-5.28); RED CELL DISTRIBUTION WIDTH 13.7 % (11.5-14.0); SEGMENTED NEUTROPHILS % (AUTO) 62.9 % (42-78)
[2017-01-04] MEDS ORDERED: ONDANSETRON HCL INJ/PF 4 MG/2 ML SDV ONE (10:42)
[2017-01-04] MEDS ORDERED: SUCCINYLCHOLINE CHLORIDE INJ 200 MG/10 ML VIAL ONE (10:42)
[2017-01-04] MEDS ORDERED: ROCURONIUM BROMIDE INJ 50 MG/5 ML VIAL IV ONE (10:42)
[2017-01-04] MEDS ORDERED: DEXAMETHASONE SOD PHOSPHATE INJ 4 MG/1 ML VIAL ONE (10:42)
[2017-01-04] MEDS ORDERED: PHENYLEPHRINE HCL INJ/PF 10 MG/1 ML SDV ONE (10:42)
[2017-01-04] MEDS ORDERED: LIDOCAINE 2% INJ-PF (20 MG/ML) 10 ML AMPUL ONE (10:42)
[2017-01-04 10:45] LABS: ANION GAP 12 (5-19); BLOOD UREA NITROGEN 9 mg/dL (7-20); CALCIUM 9.4 mg/dL (8.4-10.2); CARBON DIOXIDE 27 mmol/L (22-30); CHLORIDE 102 mmol/L (98-107); GLUCOSE 110 mg/dL (75-110)
--- NOTE | 2017-01-04 11:28 | PDOC PROGRESS REPORT ---
Subjective Progress Note for:: 01/04/17 Subjective:: Complain of recurrent the deep-seated mid abdominal pain similar to the pain that she initially presented with. The pain began yesterday. Patient has some diarrhea yesterday but the no bowel movements today. She has had no vomiting today. Physical Exam Vital Signs: Temp Pulse Resp BP Pulse Ox 98.3 F 94 18 131/85 H 98 01/04/17 08:00 01/04/17 08:00 01/04/17 08:00 01/04/17 08:00 01/04/17 08:00 Intake & Output 01/03/17 01/04/17 01/05/17 06:59 06:59 06:59 Intake Total 2898 820 Output Total 200 Balance 2698 820 Weight 72.1 kg General appearance: PRESENT: no acute distress, cooperative Respiratory exam: PRESENT: clear to auscultation kianna Cardiovascular exam: PRESENT: RRR GI/Abdominal exam: PRESENT: other - Soft, mid to lower abdominal tenderness with no peritoneal signs. Wound clean dry and intact with no erythema no drainage. Results Laboratory Results: 01/04/17 09:59 01/04/17 09:59 01/04/17 01/04/17 09:59 09:59 WBC 7.0 RBC 4.08 Hgb 12.8 Hct 37.5 MCV 92 MCH 31.3 MCHC 34.1 RDW 13.7 Plt Count 344 Seg Neutrophils % 62.9 Lymphocytes % 28.2 Monocytes % 6.2 Eosinophils % 2.3 Basophils % 0.4 Absolute Neutrophils 4.4 Absolute Lymphocytes 2.0 Absolute Monocytes 0.4 Absolute Eosinophils 0.2 Absolute Basophils 0.0 Sodium 141.0 Potassium 4.0 Chloride 102 Carbon Dioxide 27 Anion Gap 12 BUN 9 Creatinine 0.60 Est GFR ( Amer) > 60 Est GFR (Non-Af Amer) > 60 Glucose 110 Calcium 9.4 Impressions: Abdomen/Pelvis CT 12/26/16 00:00 IMPRESSION: Mildly dilated distal small bowel with scattered air-fluid levels. Developing small bowel obstruction cannot be excluded there is a small amount of mesenteric edema and free fluid in the right lower quadrant. The appendix is normal. There is severe gastric distention as well. KUB X-Ray 12/26/16 09:41 IMPRESSION: Nonspecific bowel gas pattern Small Bowel X-Ray 12/27/16 00:00 IMPRESSION: Gastric outlet obstruction. Unable to evaluate small bowel Findings and limitations discussed with the patient's attending surgeon Assessment & Plan - Diagnosis (1) Small bowel obstruction Is this a current diagnosis for this admission?: YesPlan: s/p davon. Patient apparently was doing well 3 days ago and has taken a turn for the worse since yesterday with the increased abdominal pain. Will check abdominal pelvic CT scan with oral and IV contrast.
[2017-01-04] MEDS ORDERED: NORMAL SALINE 1000 ML 1,000 ML IV PRN (11:29)
--- NOTE | 2017-01-04 13:30 | PDOC PROGRESS REPORT ---
Subjective Progress Note for:: 01/04/17 Subjective:: She is day 8 post op for laparotomy for small bowel obstruction. She is has passed flatus and some bowel movement yesterday. We will ct with Metoprolol IV and Hydralazine IV prn to help optimize BP control .Her potassium today is normal.She is having worsening abdominal pain and the plan by surgeons is to get CT abdomen/pelvis to evaluate her further. We will hold of on Amlodipine po. Physical Exam Vital Signs: Temp Pulse Resp BP Pulse Ox 98.5 F 98 20 154/99 H 94 01/04/17 11:25 01/04/17 11:25 01/04/17 11:25 01/04/17 11:25 01/04/17 11:25 Intake & Output 01/03/17 01/04/17 01/05/17 06:59 06:59 06:59 Intake Total 2898 820 Output Total 200 Balance 2698 820 Weight 72.1 kg General appearance: PRESENT: well-developed, well-nourished Head exam: PRESENT: atraumatic, normocephalic Eye exam: PRESENT: EOMI, PERRLA Ear exam: PRESENT: TM's normal bilaterally Mouth exam: PRESENT: moist, neck supple, tongue midline Neck exam: PRESENT: full ROM Respiratory exam: PRESENT: clear to auscultation kianna, symmetrical Cardiovascular exam: PRESENT: +S1, +S2 Pulses: PRESENT: +2 pedal pulses bilateral GI/Abdominal exam: PRESENT: normal bowel sounds, soft Rectal exam: PRESENT: deferred Extremities exam: PRESENT: full ROM Musculoskeletal exam: PRESENT: full ROM Neurological exam: PRESENT: alert, awake, oriented to person, oriented to place , oriented to time, CN II-XII grossly intact Psychiatric exam: PRESENT: normal mood Results Laboratory Results: 01/04/17 09:59 01/04/17 09:59 01/04/17 01/04/17 09:59 09:59 WBC 7.0 RBC 4.08 Hgb 12.8 Hct 37.5 MCV 92 MCH 31.3 MCHC 34.1 RDW 13.7 Plt Count 344 Seg Neutrophils % 62.9 Lymphocytes % 28.2 Monocytes % 6.2 Eosinophils % 2.3 Basophils % 0.4 Absolute Neutrophils 4.4 Absolute Lymphocytes 2.0 Absolute Monocytes 0.4 Absolute Eosinophils 0.2 Absolute Basophils 0.0 Sodium 141.0 Potassium 4.0 Chloride 102 Carbon Dioxide 27 Anion Gap 12 BUN 9 Creatinine 0.60 Est GFR ( Amer) > 60 Est GFR (Non-Af Amer) > 60 Glucose 110 Calcium 9.4 Impressions: Abdomen/Pelvis CT 12/26/16 00:00 IMPRESSION: Mildly dilated distal small bowel with scattered air-fluid levels. Developing small bowel obstruction cannot be excluded there is a small amount of mesenteric edema and free fluid in the right lower quadrant. The appendix is normal. There is severe gastric distention as well. KUB X-Ray 12/26/16 09:41 IMPRESSION: Nonspecific bowel gas pattern Small Bowel X-Ray 12/27/16 00:00 IMPRESSION: Gastric outlet obstruction. Unable to evaluate small bowel Findings and limitations discussed with the patient's attending surgeon Assessment & Plan - Diagnosis (1) Small bowel obstruction Is this a current diagnosis for this admission?: YesPlan: Ct with ambulation and hold off full liquid diet due to abdominal pain. Ct with Dilaudid 2mg q2h IV prn; Ct with Cefazolin 1G q8h IV; f/u general surgeons for mgt.F/u CT abdomen/pelvis with contrast. (2) Hypertension Qualifiers: Hypertension type: essential hypertension Qualified Code(s): I10 - Essential (primary) hypertension Is this a current diagnosis for this admission?: YesPlan: Ct with Hydralazine 10mg q6h IV prn for now. Ct with Labetalol 10 mg q6h IV prn . (3) Hypokalemia Is this a current diagnosis for this admission?: YesPlan: Her K is 3.9. This corrected. Monitor chemistry daily.. (4) Hyperlipidemia Qualifiers: Hyperlipidemia type: unspecified Qualified Code(s): E78.5 - Hyperlipidemia, unspecified Is this a current diagnosis for this admission?: YesPlan: She is NPO for now; Ct with conservative mgt. (5) Lumbago Qualifiers: Chronicity: unspecified Back pain laterality: unspecified Sciatica presence: unspecified whether sciatica present Qualified Code(s): M54.5 - Low back pain Is this a current diagnosis for this admission?: YesPlan: Ct with Morphine 4 mg q4h prn IV; Ct with Tylenol 650 mg q6h prn po. (6) DVT prophylaxis Is this a current diagnosis for this admission?: YesPlan: Ct with Lovenox 40 mg qd subcut; SCD.
[2017-01-04] MEDS: HYDRALAZINE HCL INJ/PF 20 MG/1 ML SDV IV PRN (13:55)
[2017-01-04] MEDS ORDERED: HYDROMORPHONE HCL INJ/PF 2 MG/ML AMPULE ONE (17:08)
--- NOTE | 2017-01-04 17:50 | PDOC PROGRESS REPORT ---
Subjective Progress Note for:: 01/04/17 Subjective:: Still with deep-seated severe abdominal pain only lessened after IV narcotic. Had the very loose bowel movement. Physical Exam Vital Signs: Temp Pulse Resp BP Pulse Ox 98.3 F 129 H 16 139/83 H 97 01/04/17 15:04 01/04/17 15:04 01/04/17 15:04 01/04/17 15:04 01/04/17 15:04 Intake & Output 01/03/17 01/04/17 01/05/17 06:59 06:59 06:59 Intake Total 2898 820 473 Output Total 200 Balance 2698 820 473 Weight 72.1 kg General appearance: PRESENT: no acute distress, cooperative Respiratory exam: PRESENT: clear to auscultation kianna Cardiovascular exam: PRESENT: RRR GI/Abdominal exam: PRESENT: other - Soft, mildly distended. Focal tenderness to palpation in the left abdomen but no peritoneal signs. Results Laboratory Results: 01/04/17 09:59 01/04/17 09:59 01/04/17 01/04/17 09:59 09:59 WBC 7.0 RBC 4.08 Hgb 12.8 Hct 37.5 MCV 92 MCH 31.3 MCHC 34.1 RDW 13.7 Plt Count 344 Seg Neutrophils % 62.9 Lymphocytes % 28.2 Monocytes % 6.2 Eosinophils % 2.3 Basophils % 0.4 Absolute Neutrophils 4.4 Absolute Lymphocytes 2.0 Absolute Monocytes 0.4 Absolute Eosinophils 0.2 Absolute Basophils 0.0 Sodium 141.0 Potassium 4.0 Chloride 102 Carbon Dioxide 27 Anion Gap 12 BUN 9 Creatinine 0.60 Est GFR ( Amer) > 60 Est GFR (Non-Af Amer) > 60 Glucose 110 Calcium 9.4 Impressions: KUB X-Ray 12/26/16 09:41 IMPRESSION: Nonspecific bowel gas pattern Small Bowel X-Ray 12/27/16 00:00 IMPRESSION: Gastric outlet obstruction. Unable to evaluate small bowel Findings and limitations discussed with the patient's attending surgeon Abdomen/Pelvis CT 01/04/17 00:00 IMPRESSION: 1. Subsegmental atelectasis in the lung bases. 2. There is a small amount of free fluid in the abdomen P 3. There are dilated loops of small bowel as described. Pedicular concerning is a loop of bowel on the left side. This could pain paraduodenal hernia. The thickening of the bowel wall is concerning perhaps for vascular compromise. Assessment & Plan - Diagnosis (1) Small bowel obstruction Is this a current diagnosis for this admission?: Yes (2) Small bowel ischemia Is this a current diagnosis for this admission?: YesPlan: CT scan demonstrates a markedly abnormal loop of small bowel in the left abdomen with marked wall thickening very concerning for segmental ischemia. Patient has the now focal tenderness in this region. Uncertain of etiology of this abnormality but it appears acute. Her SMA appears widely patent on CT scan. She has no history of atrial fib. She is currently in normal sinus rhythm at least by exam. Will check an EKG. I will plan exploratory laparotomy with probable small bowel resection. I have discussed with the patient the risk and benefits of the procedure including risk of the bowel injury, bleeding, infection, cardiopulmonary risk, wound healing problems such as dehiscence. Patient understands and agrees to proceed.
[2017-01-04] MEDS ORDERED: FENTANYL CITRATE INJ/PF 250 MCG/5 ML AMPULE ONE (18:18)
[2017-01-04] MEDS ORDERED: FENTANYL CITRATE INJ/PF 100 MCG/2 ML AMPUL ONE (18:18)
[2017-01-04] MEDS ORDERED: MORPHINE SULFATE 10 MG/ML INJ ONE (18:19)
[2017-01-04] MEDS ORDERED: MIDAZOLAM 2 MG/2 ML INJ ONE (18:19)
[2017-01-04] MEDS ORDERED: DEXMEDETOMIDINE INJ 80 MCG/20 ML VIAL IV ONE (18:19)
[2017-01-04] MEDS ORDERED: PROPOFOL INJ 200 MG/20 ML VIAL IV ONE (18:19)
[2017-01-04] MEDS ORDERED: ACETAMINOPHEN 100 ML IV ONE (18:19)
[2017-01-04] MEDS ORDERED: CEFAZOLIN INJ 1 GM VIAL ONE (18:44)
[2017-01-04] MEDS ORDERED: BUPIVACAINE HCL 0.25 % INJ/PF (2.5 MG/1 ML) 30 ML VIAL ONE (19:18)
[2017-01-04] MEDS ORDERED: OXYCODONE-ACETAMINOPHEN 5-325 MG TABLET PO PRN ×2 (19:34)
[2017-01-04] MEDS ORDERED: MEPERIDINE HCL/PF INJ 25 MG/1 ML DISP.SYRIN IV PRN (19:34)
[2017-01-04] MEDS ORDERED: MORPHINE SULFATE 10 MG/ML INJ IV PRN (19:34)
[2017-01-04] MEDS ORDERED: PROMETHAZINE HCL INJ 25 MG/1 ML VIAL IV PRN ×2 (19:34)
[2017-01-04] MEDS ORDERED: DIPHENHYDRAMINE HCL 50 MG/ML VIAL IV PRN (19:34)
[2017-01-04] MEDS ORDERED: FENTANYL CITRATE INJ/PF 100 MCG/2 ML AMPUL IV PRN ×3 (19:34)
[2017-01-04] MEDS ORDERED: BUPIVACAINE HCL 0.25 % INJ/PF (2.5 MG/1 ML) 30 ML VIAL INJ ONE (21:00)
[2017-01-04] MEDS ORDERED: PHARMACY COMMUNICATION ORDER MC NR (21:30)
[2017-01-04] MEDS ORDERED: PROPOFOL 100 ML IV ONE (21:42)
[2017-01-04] MEDS ORDERED: METRONIDAZOLE 500 MG TABLET PO ONE (21:45)
[2017-01-04] MEDS ORDERED: ACETAMINOPHEN 325 MG TABLET NG PRN (21:49)
[2017-01-04] MEDS ORDERED: OXYCODONE-ACETAMINOPHEN 5-325 MG TABLET NG PRN ×2 (21:51→21:52)
[2017-01-04] MEDS: METRONIDAZOLE 500 MG TABLET NG SCH (23:53)
[2017-01-04] MEDS: PROPOFOL 100 ML IV PRN (23:56)
[2017-01-05] MEDS: MORPHINE SULFATE 10 MG/ML INJ IV PRN ×4 (00:11→19:32)
--- NOTE | 2017-01-05 00:50 | PDOC PROGRESS REPORT ---
Subjective Progress Note for:: 01/05/17 Subjective:: Intubated and sedated Physical Exam Vital Signs: Temp Pulse Resp BP Pulse Ox 98.9 F 108 H 16 149/93 H 100 01/04/17 23:56 01/04/17 21:51 01/04/17 21:51 01/04/17 21:51 01/04/17 21:51 Intake & Output 01/03/17 01/04/17 01/05/17 06:59 06:59 06:59 Intake Total 2898 820 4923 Output Total 200 1950 Balance 2698 820 2973 Weight 72.1 kg General appearance: PRESENT: no acute distress Respiratory exam: PRESENT: clear to auscultation kianna Cardiovascular exam: PRESENT: RRR GI/Abdominal exam: PRESENT: other - Soft, moderately distended. Unable to assess tenderness. Results Laboratory Results: 01/04/17 09:59 01/04/17 09:59 01/04/17 01/04/17 09:59 09:59 WBC 7.0 RBC 4.08 Hgb 12.8 Hct 37.5 MCV 92 MCH 31.3 MCHC 34.1 RDW 13.7 Plt Count 344 Seg Neutrophils % 62.9 Lymphocytes % 28.2 Monocytes % 6.2 Eosinophils % 2.3 Basophils % 0.4 Absolute Neutrophils 4.4 Absolute Lymphocytes 2.0 Absolute Monocytes 0.4 Absolute Eosinophils 0.2 Absolute Basophils 0.0 Sodium 141.0 Potassium 4.0 Chloride 102 Carbon Dioxide 27 Anion Gap 12 BUN 9 Creatinine 0.60 Est GFR ( Amer) > 60 Est GFR (Non-Af Amer) > 60 Glucose 110 Calcium 9.4 Impressions: KUB X-Ray 12/26/16 09:41 IMPRESSION: Nonspecific bowel gas pattern Small Bowel X-Ray 12/27/16 00:00 IMPRESSION: Gastric outlet obstruction. Unable to evaluate small bowel Findings and limitations discussed with the patient's attending surgeon Abdomen/Pelvis CT 01/04/17 00:00 IMPRESSION: 1. Subsegmental atelectasis in the lung bases. 2. There is a small amount of free fluid in the abdomen P 3. There are dilated loops of small bowel as described. Pedicular concerning is a loop of bowel on the left side. This could pain paraduodenal hernia. The thickening of the bowel wall is concerning perhaps for vascular compromise. Chest X-Ray 01/04/17 00:00 IMPRESSION: THE TIP OF THE ENDOTRACHEAL TUBE IS AT THE LEVEL OF THE JOSE. WITHDRAWAL BY 2 CM WOULD IMPROVE POSITIONING. TIP OF THE NASOGASTRIC TUBE IS IN THE STOMACH. NO ACUTE FINDINGS IN THE CHEST. Assessment & Plan - Diagnosis (1) Small bowel obstruction Is this a current diagnosis for this admission?: YesPlan: Status post lysis of adhesions and small bowel resection and appendectomy. Patient looks stable postoperatively. Will see about extubating the patient in the morning. Treat for C. difficile colitis. Await bowel function. (2) Small bowel ischemia Is this a current diagnosis for this admission?: Yes
--- NOTE | 2017-01-05 00:51 | Operative Report ---
Operative Report DATE OF SURGERY: 01/04/17 PREOPERATIVE DIAGNOSIS: Ischemic small bowel. POSTOPERATIVE DIAGNOSIS: Partial small bowel obstruction with adhesive bowel disease. Appendicitis. OPERATION: Exploratory laparotomy, small bowel resection, appendectomy. Extensive lysis of adhesions. SURGEON: JOHANN CAR ANESTHESIA: GA TISSUE REMOVED OR ALTERED: Terminal ileum, appendix COMPLICATIONS: None ESTIMATED BLOOD LOSS: 200 mL INTRAOPERATIVE FINDINGS: Dilated small bowel with thickened segment of proximal jejunum but no evidence of transmural ischemia. Good pulse in the superior mesenteric artery. Palpable pulse in the mesentery of the thickened proximal jejunum. Dense right lower quadrant adhesions with matted loops of small bowel near the ileocecal junction with the entire small bowel proximal to this region distended. Multiple interloop and abdominal wall small bowel adhesions. Tip of appendix appeared inflamed with mesenteric thickening. The colon appeared grossly normal. PROCEDURE: Informed consent was obtained. Patient was brought to the operating room and placed on the operating room table in the supine position. After satisfactory induction of general anesthesia patient's abdomen was prepped and draped in usual sterile fashion. Patient's skin janneth were removed subcutaneous tissue was spread apart fascial suture was cut and the fascial sutures were removed and the peritoneal was entered bluntly the fascia the most distal portion of the fascia was left intact there was a copious amounts of the serosanguineous the fluid in the peritoneal cavity. The small bowel was distended. Multiple interloop and small bowel to abdominal wall adhesions were noted. All of these adhesions were lysed with combination of finger fracture and sharp dissection. There were dense interloop adhesions in the right lower quadrant extending to near the ileocecal junction. The very distal terminal ileum appeared to be decompressed. The very proximal jejunum had approximately a foot segment of bowel that was thickened but there was no evidence of full- thickness ischemia. The superior mesenteric artery had excellent pulsation and the mesentery of the small bowel had palpable pulsations throughout including the area of thickened small bowel. There was no evidence of paraduodenal hernia. The appendix was adhered to the terminal ileum and the tip appeared inflamed and the mesentery appeared thickened. The appendix was dissected free from the surrounding structures the meso appendix was the taken and the bleeding controlled with surgical clips. The appendix was taken flush with the cecum using a TA stapling device. The stump closure appeared secure. The cecum and the right colon appear grossly normal. The sigmoid colon felt slightly thickened but otherwise appeared normal grossly. Portion of the transverse colon that was visualized the appear grossly normal as well. All of the the small bowel adhesions were lysed with the exception of the very distal small bowel. These interloop adhesions were extremely dense with matted small bowel in this area. In the attempting to lyse these adhesions serosal tears were created but no full-thickness enterotomies. I felt that this region of matted small bowel was causing a partial small bowel obstruction. Therefore this section of small bowel was resected, approximately one foot of the terminal ileum. The bowel was divided using a URSZULA stapling device. The mesentery of the resected segment was taken using the LigaSure device. A side- to-side functional end-to-end anastomosis was created between the very distal aspect of the terminal ileum and the proximal ileum using a URSZULA stapling device. The enterotomy created to introduce the stapling device was closed with a TA stapling device. The mesenteric defect was closed with Vicryl suture. Small bowel was closely examined and there were no evidence of the injury other than very minor serosal tears. Anastomosis appeared secure with excellent perfusion. The operative field was irrigated and irrigant aspirated out. Hemostasis appeared excellent. The small bowel was returned back into the peritoneal cavity. Sponge needle and strength counts were all correct. The fascia was then closed with the PDS suture. Skin was closed with janneth. Marcaine was injected at the incision site. Tolerated procedure well with no apparent complications and was taken to the intensive care unit in stable condition.
[2017-01-05] MEDS: PROPOFOL 100 ML IV PRN ×3 (01:29→09:23)
[2017-01-05] MEDS: METRONIDAZOLE 500 MG TABLET NG SCH ×2 (05:01→12:12)
[2017-01-05] MEDS: NORMAL SALINE 1000 ML 1,000 ML IV PRN (05:01)
[2017-01-05] MEDS: LABETALOL HCL INJ 200 MG/40 ML VIAL IV SCH ×2 (05:02→12:11)
--- NOTE | 2017-01-05 09:40 | EKG REPORT ---
SEVERITY:- BORDERLINE ECG - SINUS TACHYCARDIA LVH BY VOLTAGE : Confirmed by: Ulisses Meléndez 05-Jan-2017 09:39:33
[2017-01-05] MEDS ORDERED: AMLODIPINE BESYLATE 5 MG TABLET NG SCH (10:00)
[2017-01-05] MEDS: ENOXAPARIN SODIUM INJ 40 MG/0.4 ML DISP.SYRIN SUBCUT SCH (10:13)
[2017-01-05] MEDS: FAMOTIDINE INJ/PF 20 MG/2 ML SDV IV SCH ×2 (10:13→23:09)
[2017-01-05] MEDS ORDERED: HYDROMORPHONE HCL INJ/PF 2 MG/ML AMPULE ONE (10:44)
[2017-01-05] MEDS: HYDROMORPHONE HCL INJ/PF 2 MG/ML AMPULE IV PRN ×3 (13:38→23:17)
--- NOTE | 2017-01-05 14:21 | PDOC PROGRESS REPORT ---
Subjective Progress Note for:: 01/05/17 Subjective:: She had repeat exploratory laparotomy on 01/04/2017 for partial small bowel obstruction with lysis of adhesions, small bowel resection and appendectomy. She was exturbated today and is still at ICU close monitoring post-op. She is doing well. Physical Exam Vital Signs: Temp Pulse Resp BP Pulse Ox 98.8 F 93 17 133/81 H 100 01/05/17 05:58 01/05/17 12:40 01/05/17 12:40 01/05/17 12:40 01/05/17 12:40 Intake & Output 01/04/17 01/05/17 01/06/17 06:59 06:59 06:59 Intake Total 820 6120 Output Total 2475 210 Balance 820 3645 -210 Weight 72.1 kg 70.7 kg General appearance: PRESENT: no acute distress, well-developed, well-nourished Head exam: PRESENT: atraumatic, normocephalic Eye exam: PRESENT: EOMI, PERRLA Ear exam: PRESENT: TM's normal bilaterally Mouth exam: PRESENT: neck supple Respiratory exam: PRESENT: decreased breath sounds, symmetrical Cardiovascular exam: PRESENT: +S1, +S2 Pulses: PRESENT: +2 pedal pulses bilateral GI/Abdominal exam: PRESENT: diminished bowel sounds, tenderness Rectal exam: PRESENT: deferred Neurological exam: PRESENT: alert, awake, oriented to person, oriented to place , oriented to time Psychiatric exam: PRESENT: normal mood Results Laboratory Results: 01/04/17 09:59 01/04/17 09:59 Impressions: KUB X-Ray 12/26/16 09:41 IMPRESSION: Nonspecific bowel gas pattern Small Bowel X-Ray 12/27/16 00:00 IMPRESSION: Gastric outlet obstruction. Unable to evaluate small bowel Findings and limitations discussed with the patient's attending surgeon Abdomen/Pelvis CT 01/04/17 00:00 IMPRESSION: 1. Subsegmental atelectasis in the lung bases. 2. There is a small amount of free fluid in the abdomen P 3. There are dilated loops of small bowel as described. Pedicular concerning is a loop of bowel on the left side. This could pain paraduodenal hernia. The thickening of the bowel wall is concerning perhaps for vascular compromise. Chest X-Ray 01/04/17 00:00 IMPRESSION: THE TIP OF THE ENDOTRACHEAL TUBE IS AT THE LEVEL OF THE JOSE. WITHDRAWAL BY 2 CM WOULD IMPROVE POSITIONING. TIP OF THE NASOGASTRIC TUBE IS IN THE STOMACH. NO ACUTE FINDINGS IN THE CHEST. Assessment & Plan - Diagnosis (1) Small bowel obstruction Is this a current diagnosis for this admission?: YesPlan: Ct with ambulation. Ct with Dilaudid 2mg q2h IV prn; Ct with Cefazolin 1G q8h IV; f/u general surgeons for mgt. (2) Clostridium difficile colitis Is this a current diagnosis for this admission?: YesPlan: Ct with Flagyl 500 mg q6h via NGT (3) Hypertension Qualifiers: Hypertension type: essential hypertension Qualified Code(s): I10 - Essential (primary) hypertension Is this a current diagnosis for this admission?: YesPlan: Ct with Hydralazine 10mg q6h IV prn for now. Ct with Labetalol 10 mg q6h IV prn . Ct with Amodipine 5 mg via NGT. (4) Hypokalemia Is this a current diagnosis for this admission?: YesPlan: Her K is normal. This has been corrected. Monitor chemistry daily.. (5) Hyperlipidemia Qualifiers: Hyperlipidemia type: unspecified Qualified Code(s): E78.5 - Hyperlipidemia, unspecified Is this a current diagnosis for this admission?: YesPlan: She is NPO for now; Ct with conservative mgt. (6) Lumbago Qualifiers: Chronicity: unspecified Back pain laterality: unspecified Sciatica presence: unspecified whether sciatica present Qualified Code(s): M54.5 - Low back pain Is this a current diagnosis for this admission?: YesPlan: Ct with Morphine 4 mg q4h prn IV; Ct with Tylenol 650 mg q6h prn po. (7) DVT prophylaxis Is this a current diagnosis for this admission?: YesPlan: Ct with Lovenox 40 mg qd subcut; SCD.
[2017-01-05] MEDS: METRONIDAZOLE 500 MG/NS RTU 100 ML IV SCH (18:39)
[2017-01-06] MEDS: METRONIDAZOLE 500 MG/NS RTU 100 ML IV SCH ×4 (00:59→18:19)
[2017-01-06] MEDS: NORMAL SALINE 1000 ML 1,000 ML IV PRN (03:50)
[2017-01-06] MEDS: HYDROMORPHONE HCL INJ/PF 2 MG/ML AMPULE IV PRN ×5 (04:22→22:08)
[2017-01-06] MEDS: ENOXAPARIN SODIUM INJ 40 MG/0.4 ML DISP.SYRIN SUBCUT SCH (08:45)
[2017-01-06] MEDS ORDERED: NORMAL SALINE 1000 ML 1,000 ML IV PRN (09:06)
[2017-01-06] MEDS ORDERED: PHARMACY COMMUNICATION ORDER MC NR (09:30)
[2017-01-06] MEDS: AMLODIPINE BESYLATE 5 MG TABLET PO SCH (10:21)
[2017-01-06] MEDS: FAMOTIDINE INJ/PF 20 MG/2 ML SDV IV SCH ×2 (10:21→22:10)
--- NOTE | 2017-01-06 11:28 | PROGRESS NOTE E ---
Progress Note NAME: LEELEE HANDY : 1960 AGE: 56Y DATE: 01/06/2017 ROOM: 609 SUBJECTIVE: She feels a lot better with less pain. She claims she had a small amount of flatus. The NG tube has not drained much, maybe around 100 mL since last night. She is hungry. Her abdomen is still slightly distended but the incision is clean and dry. She has good bowel sounds. PLAN: The plan is to discontinue her NG tube but keep n.p.o. except ice chips. Continue treatment of her C. diff with IV Flagyl. We will keep her another day in the ICU. Her white count remained normal at 7000. DICTATING PHYSICIAN: ESTEVAN GALLEGOS M.D. [id number] XIOMARAY#: [id number] ID: [id number] JOB#: [id number] ACCT: [id number] cc: >
[2017-01-06 11:34] LABS: ABSOLUTE EOSINOPHILS # (AUTO) 0.1 10^3/uL (0.0-0.6); ABSOLUTE MONOCYTES (AUTO) 0.9 10^3/uL (0.1-1.4); ABSOLUTE NEUT (AUTO) 11.8 10^3/uL (1.7-8.2); BASOPHILS % (AUTO) 0.2 % (0-2); EOSINOPHILS % (AUTO) 0.3 % (0-6); HEMATOCRIT 30.3 % (36.0-47.0); HGB HCT DIFFERENCE 1.5; LYMPHOCYTES % (AUTO) 13.7 % (13-45); MEAN CORPUSCULAR HEMOGLOBIN 31.9 pg (27.0-33.4); MEAN CORPUSCULAR VOLUME 91 fl (80-97); MONOCYTES % (AUTO) 6.3 % (3-13); RED BLOOD COUNT 3.32 10^6/uL (3.72-5.28); RED CELL DISTRIBUTION WIDTH 13.8 % (11.5-14.0); SEGMENTED NEUTROPHILS % (AUTO) 79.5 % (42-78)
[2017-01-06 11:50] LABS: ANION GAP 12 (5-19); BLOOD UREA NITROGEN 9 mg/dL (7-20); CALCIUM 8.7 mg/dL (8.4-10.2); CARBON DIOXIDE 24 mmol/L (22-30); CHLORIDE 105 mmol/L (98-107); CREATININE RESULT 0.49 mg/dL (0.52-1.25); GLUCOSE 106 mg/dL (75-110); POTASSIUM 3.5 mmol/L (3.6-5.0); SODIUM 141.2 mmol/L (137-145)
[2017-01-06 11:52] LABS: HEMOGLOBIN 10.6 g/dL (12.0-15.5); WHITE BLOOD COUNT 14.8 10^3/uL (4.0-10.5)
[2017-01-06] MEDS ORDERED: LIDOCAINE 1% INJ-PF (10 MG/ML) 30 ML SDV INJ ONE (15:45)
--- NOTE | 2017-01-06 16:29 | OPERATIVE REPORT E ---
Operative Report NAME: LEELEE HANDY : 1960 AGE: 56Y DATE OF SURGERY: 01/06/2017 ROOM: 404 PREOPERATIVE DIAGNOSIS: Small bowel obstruction. POSTOPERATIVE DIAGNOSIS: Small bowel obstruction with needed nutritional support. OPERATION: Placement with left internal jugular vein triple-lumen catheter under ultrasound guidance. SURGEON: ESTEVAN GALLEGOS M.D. ANESTHESIA: Local. INDICATION: This is a 56-year-old female, resident practically NPO for about 11 days. A central line will be placed to get her started on TPN starting tomorrow. DESCRIPTION OF PROCEDURE: The patient was placed in supine position, slightly Trendelenburg with the left neck exposed. Left neck was then prepped and draped in the usual sterile fashion. With use of ultrasound, internal jugular vein was then identified and local anesthesia was infiltrated in the path of the internal jugular vein. Internal jugular vein was then punctured, and the guidewire passed the needle through the superior vena cava. The needle was removed and the puncture site enlarged with a #11 blade. Next, a dilator was placed through the guidewire and dilated the area. Next, a triple-lumen catheter was then inserted through the guidewire into the area of the superior vena cava and the guidewire was subsequently pulled out. About 16 cm of the catheter was placed. The triple-lumen catheter was then anchored to the skin was 3-0 silk. The 3 ports were then aspirated venous blood easily and injected saline easily. Next, a Biopatch was placed at the insertion site and a sterile transparent dressing placed over the catheter. The patient tolerated the procedure well. A chest x-ray will be obtained for placement. DICTATING PHYSICIAN: ESTEVAN GALLEGOS M.D. [id number] PHY#: [id number] ID: [id number] JOB#: [id number] ACCT: [id number] cc:ESTEVAN GALLEGOS M.D. >
--- NOTE | 2017-01-06 20:11 | PDOC PROGRESS REPORT ---
Subjective Progress Note for:: 01/06/17 Subjective:: Patient seen earlier today on morning rounds. No complaints at that time. Patient denies chest pain, shortness of breath, nausea, vomiting, fevers, chills , diarrhea, headache, new onset weakness. Patient is yet to have a bowel movement or pass flatus. Physical Exam Vital Signs: Temp Pulse Resp BP Pulse Ox 99.7 F 110 H 18 144/89 H 96 01/06/17 16:00 01/06/17 16:00 01/06/17 16:00 01/06/17 16:00 01/06/17 16:00 Intake & Output 01/05/17 01/06/17 01/07/17 06:59 06:59 06:59 Intake Total 6120 3418 362 Output Total 7605 1055 1250 Balance 3641 4367 -311 Weight 70.7 kg 73 kg Exam: General: Awake alert and oriented x3, no acute respiratory distress HEENT: AT/NC, PERRL, EOMI, oropharynx is moist, pink, no scleral icterus, no conjunctival injection Neck: No JVD, trachea midline Chest: Clear to auscultation bilaterally, no wheezes rhonchi or rales CV: Regular rate and rhythm, normal S1 and S2, no murmur, rub, or gallop Abdomen: Soft, mild tender to palpation, mild distended, hypoactive bowel sounds ; no rebound, rigidity, or guarding Extremities: No cyanosis, clubbing; +1edema Neuro: Cranial nerves II through XII are grossly intact without focal deficits; awake alert and oriented x3 Psych: Normal mood and affect Results Laboratory Results: 01/06/17 11:26 01/06/17 11:26 01/06/17 01/06/17 11:26 11:26 WBC 14.8 H D RBC 3.32 L Hgb 10.6 L D Hct 30.3 L MCV 91 MCH 31.9 MCHC 35.0 RDW 13.8 Plt Count 389 Seg Neutrophils % 79.5 H Lymphocytes % 13.7 Monocytes % 6.3 Eosinophils % 0.3 Basophils % 0.2 Absolute Neutrophils 11.8 H Absolute Lymphocytes 2.0 Absolute Monocytes 0.9 Absolute Eosinophils 0.1 Absolute Basophils 0.0 Sodium 141.2 Potassium 3.5 L Chloride 105 Carbon Dioxide 24 Anion Gap 12 BUN 9 Creatinine 0.49 L Est GFR ( Amer) > 60 Est GFR (Non-Af Amer) > 60 Glucose 106 Calcium 8.7 Impressions: KUB X-Ray 12/26/16 09:41 IMPRESSION: Nonspecific bowel gas pattern Small Bowel X-Ray 12/27/16 00:00 IMPRESSION: Gastric outlet obstruction. Unable to evaluate small bowel Findings and limitations discussed with the patient's attending surgeon Abdomen/Pelvis CT 01/04/17 00:00 IMPRESSION: 1. Subsegmental atelectasis in the lung bases. 2. There is a small amount of free fluid in the abdomen P 3. There are dilated loops of small bowel as described. Pedicular concerning is a loop of bowel on the left side. This could pain paraduodenal hernia. The thickening of the bowel wall is concerning perhaps for vascular compromise. Chest X-Ray 01/06/17 16:00 IMPRESSION: 1. The patient has been extubated since prior study. There is bibasilar atelectasis. 2. Central line has been added as described. Catheter tip overlies the right atrium. No pneumothorax. 3. NG tube remains in place. Assessment & Plan - Diagnosis (1) Small bowel ischemia Is this a current diagnosis for this admission?: YesPlan: Defer to surgical primary (2) Small bowel obstruction Is this a current diagnosis for this admission?: YesPlan: Defer to surgical primary team (3) Clostridium difficile colitis Is this a current diagnosis for this admission?: YesPlan: Will add Vancocin to patient's IV Flagyl. (4) Hyperlipidemia Qualifiers: Hyperlipidemia type: unspecified Qualified Code(s): E78.5 - Hyperlipidemia, unspecified Is this a current diagnosis for this admission?: YesPlan: Continue statin (5) Hypertension Qualifiers: Hypertension type: essential hypertension Qualified Code(s): I10 - Essential (primary) hypertension Is this a current diagnosis for this admission?: YesPlan: Currently well-controlled when necessary hydralazine (6) Hypokalemia Is this a current diagnosis for this admission?: YesPlan: Continue to replete and recheck. (7) Lumbago Qualifiers: Chronicity: unspecified Back pain laterality: unspecified Sciatica presence: unspecified whether sciatica present Qualified Code(s): M54.5 - Low back pain Is this a current diagnosis for this admission?: Yes (8) Hx of hepatitis C Is this a current diagnosis for this admission?: Yes (9) DVT prophylaxis Is this a current diagnosis for this admission?: Yes - Time Time Spent with patient: 25-34 minutes Medications reviewed and adjusted accordingly: Yes
[2017-01-06] MEDS ORDERED: POTASSI CL 20 MEQ/50 ML RIDER 50 ML IV SCH (20:15)
[2017-01-07] MEDS: VANCOMYCIN HCL INJ 500 MG VIAL PO SCH ×4 (01:47→18:35)
[2017-01-07] MEDS: METRONIDAZOLE 500 MG/NS RTU 100 ML IV SCH ×4 (02:06→19:26)
[2017-01-07] MEDS: HYDROMORPHONE HCL INJ/PF 2 MG/ML AMPULE IV PRN ×4 (02:07→13:47)
[2017-01-07] MEDS ORDERED: POTASSI CL 20 MEQ/50 ML RIDER 20 MEQ/50 ML RTUPB IV ONE (03:45)
[2017-01-07] MEDS: ENOXAPARIN SODIUM INJ 40 MG/0.4 ML DISP.SYRIN SUBCUT SCH (08:49)
[2017-01-07] MEDS ORDERED: DEXTROSE 40% GEL 15 GM TUBE X 2 PO PRN (09:54)
[2017-01-07] MEDS ORDERED: GLUCAGON,HUMAN RECOMB 1 MG INJ IM PRN (09:54)
[2017-01-07] MEDS ORDERED: DEXTROSE 50%-WATER SYRINGE 25 GM/50 ML DOSE IV PRN (09:54)
[2017-01-07] MEDS ORDERED: AMINO ACIDS 5%/D25W 1,000 ML IV PRN (09:54)
[2017-01-07] MEDS ORDERED: DEXTROSE 50%-WATER SYRINGE 12.5 GM/25 ML DOSE IV PRN (09:54)
[2017-01-07] MEDS ORDERED: DEXTROSE 40% GEL 15 GM TUBE PO PRN (09:54)
[2017-01-07] MEDS ORDERED: INSULIN REG, HUMAN 100 UNIT/ML 3 ML VIAL (PYX) SUBCUT PRN (09:54)
[2017-01-07] MEDS ORDERED: DEXTROSE 10%-WATER 1,000 ML IV PRN (09:54)
[2017-01-07] MEDS: AMLODIPINE BESYLATE 5 MG TABLET PO SCH (10:24)
[2017-01-07 10:44] LABS: ABSOLUTE EOSINOPHILS # (AUTO) 0.1 10^3/uL (0.0-0.6); ABSOLUTE LYMPHOCYTES (AUTO) 1.9 10^3/uL (0.5-4.7); ABSOLUTE MONOCYTES (AUTO) 0.8 10^3/uL (0.1-1.4); ABSOLUTE NEUT (AUTO) 10.4 10^3/uL (1.7-8.2); BASOPHILS % (AUTO) 0.2 % (0-2); EOSINOPHILS % (AUTO) 1.1 % (0-6); HEMATOCRIT 30.8 % (36.0-47.0); HEMOGLOBIN 10.4 g/dL (12.0-15.5); HGB HCT DIFFERENCE 0.4; LYMPHOCYTES % (AUTO) 14.6 % (13-45); MEAN CORPUSCULAR HEMOGLOBIN 30.7 pg (27.0-33.4); MEAN CORPUSCULAR HGB CONC 33.7 g/dL (32.0-36.0); MEAN CORPUSCULAR VOLUME 91 fl (80-97); MONOCYTES % (AUTO) 6.2 % (3-13); RED BLOOD COUNT 3.37 10^6/uL (3.72-5.28); RED CELL DISTRIBUTION WIDTH 13.5 % (11.5-14.0); SEGMENTED NEUTROPHILS % (AUTO) 77.9 % (42-78); WHITE BLOOD COUNT 13.3 10^3/uL (4.0-10.5)
[2017-01-07 11:11] LABS: ANION GAP 16 (5-19); BLOOD UREA NITROGEN 8 mg/dL (7-20); CALCIUM 8.6 mg/dL (8.4-10.2); CARBON DIOXIDE 26 mmol/L (22-30); CHLORIDE 103 mmol/L (98-107); CREATININE RESULT 0.44 mg/dL (0.52-1.25); GLUCOSE 87 mg/dL (75-110); POTASSIUM 3.2 mmol/L (3.6-5.0); SODIUM 144.8 mmol/L (137-145); TRIGLYCERIDES 76 mg/dL (<150)
[2017-01-07] MEDS: HYDRALAZINE HCL INJ/PF 20 MG/1 ML SDV IV PRN (13:33)
--- NOTE | 2017-01-07 14:53 | PROGRESS NOTE E ---
Progress Note NAME: LEELEE HANDY : 1960 AGE: 56Y DATE: ROOM: 404 SUBJECTIVE: The patient is still draining a lot from the NG tube. OBJECTIVE: Her abdomen is slightly distended, but much less than yesterday. She denies any significant incisional pains. She is afebrile. She *------* bowel movement this morning. Temperature was 100 last night and now is about 99.8. She had blood cultures yesterday. Her white count is slightly lower to 13.3 this morning from 14.8 yesterday. PLAN: Continue with IV Flagyl and start TPN today. Her potassium is 3.2, and I ordered K-rider for her. DICTATING PHYSICIAN: ESTEVAN GALLEGOS M.D. [id number] PHY#: [id number] ID: [id number] JOB#: [id number] ACCT: [id number] cc: >
--- NOTE | 2017-01-07 15:36 | PDOC PROGRESS REPORT ---
Subjective Progress Note for:: 01/07/17 Subjective:: Patient seen earlier today on morning rounds. Patient had 1300 of NG drainage overnight. Patient has a MAXIMUM TEMPERATURE of 100.0F in the last 24 hours occurring at 0200 last evening. Patient denies chest pain, shortness of breath, nausea, vomiting, fevers, chills , diarrhea, headache, new onset weakness. Patient is yet to have a bowel movement. Patient reports she has a small amount of flatus. Physical Exam Vital Signs: Temp Pulse Resp BP Pulse Ox 99.8 F 110 H 18 151/89 H 95 01/06/17 23:34 01/06/17 23:34 01/06/17 23:34 01/06/17 23:34 01/06/17 23:34 Intake & Output 01/06/17 01/07/17 01/08/17 06:59 06:59 06:59 Intake Total 3418 1564 Output Total 1055 3050 Balance 2363 -1486 Weight 73 kg 73.5 kg Exam: General: Awake alert and oriented x3, no acute respiratory distress HEENT: AT/NC, PERRL, EOMI, oropharynx is moist, pink, no scleral icterus, no conjunctival injection Neck: No JVD, trachea midline Chest: Clear to auscultation bilaterally, no wheezes rhonchi or rales CV: Regular rate and rhythm, normal S1 and S2, no murmur, rub, or gallop Abdomen: Soft, diffusely tender to palpation, distended, hypoactive bowel sounds ; no rebound, rigidity, or guarding Extremities: No cyanosis, clubbing; +1edema Neuro: Cranial nerves II through XII are grossly intact without focal deficits; awake alert and oriented x3 Psych: Normal mood and affect Results Laboratory Results: 01/07/17 10:20 01/07/17 10:20 01/07/17 01/07/17 10:20 10:20 WBC 13.3 H RBC 3.37 L Hgb 10.4 L Hct 30.8 L MCV 91 MCH 30.7 MCHC 33.7 RDW 13.5 Plt Count 408 Seg Neutrophils % 77.9 Lymphocytes % 14.6 Monocytes % 6.2 Eosinophils % 1.1 Basophils % 0.2 Absolute Neutrophils 10.4 H Absolute Lymphocytes 1.9 Absolute Monocytes 0.8 Absolute Eosinophils 0.1 Absolute Basophils 0.0 Sodium 144.8 Potassium 3.2 L Chloride 103 Carbon Dioxide 26 Anion Gap 16 BUN 8 Creatinine 0.44 L Est GFR ( Amer) > 60 Est GFR (Non-Af Amer) > 60 Glucose 87 Calcium 8.6 Triglycerides 76 Impressions: KUB X-Ray 12/26/16 09:41 IMPRESSION: Nonspecific bowel gas pattern Small Bowel X-Ray 12/27/16 00:00 IMPRESSION: Gastric outlet obstruction. Unable to evaluate small bowel Findings and limitations discussed with the patient's attending surgeon Abdomen/Pelvis CT 01/04/17 00:00 IMPRESSION: 1. Subsegmental atelectasis in the lung bases. 2. There is a small amount of free fluid in the abdomen P 3. There are dilated loops of small bowel as described. Pedicular concerning is a loop of bowel on the left side. This could pain paraduodenal hernia. The thickening of the bowel wall is concerning perhaps for vascular compromise. Chest X-Ray 01/06/17 16:00 IMPRESSION: 1. The patient has been extubated since prior study. There is bibasilar atelectasis. 2. Central line has been added as described. Catheter tip overlies the right atrium. No pneumothorax. 3. NG tube remains in place. Assessment & Plan - Diagnosis (1) Small bowel obstruction Is this a current diagnosis for this admission?: YesPlan: Defer to surgical primary team Have discussed with them further possibility of imaging studies and they declined at this time. Case discussed with Dr. Woodward. (2) Clostridium difficile colitis Is this a current diagnosis for this admission?: YesPlan: On Flagyl and Vancocin. Will need a total of 14 days. (3) Hyperlipidemia Qualifiers: Hyperlipidemia type: unspecified Qualified Code(s): E78.5 - Hyperlipidemia, unspecified Is this a current diagnosis for this admission?: YesPlan: Triglycerides are acceptable for TPN (4) Hypertension Qualifiers: Hypertension type: essential hypertension Qualified Code(s): I10 - Essential (primary) hypertension Is this a current diagnosis for this admission?: YesPlan: Currently well-controlled when necessary hydralazine We'll stop calcium channel iris at this time as this can lead to ileus. (5) Hypokalemia Is this a current diagnosis for this admission?: YesPlan: Continue to replete and recheck. Check magnesium (6) Lumbago Qualifiers: Chronicity: unspecified Back pain laterality: unspecified Sciatica presence: unspecified whether sciatica present Qualified Code(s): M54.5 - Low back pain Is this a current diagnosis for this admission?: Yes (7) Hx of hepatitis C Is this a current diagnosis for this admission?: Yes (8) DVT prophylaxis Is this a current diagnosis for this admission?: Yes - Time Time Spent with patient: 25-34 minutes Medications reviewed and adjusted accordingly: Yes
[2017-01-07] MEDS: POTASSI CL 20 MEQ/50 ML RIDER 50 ML IV SCH ×3 (17:21→23:41)
[2017-01-08] MEDS: METRONIDAZOLE 500 MG/NS RTU 100 ML IV SCH ×5 (00:51→23:17)
[2017-01-08] MEDS: VANCOMYCIN HCL INJ 500 MG VIAL PO SCH ×5 (00:51→23:17)
[2017-01-08] MEDS: POTASSI CL 20 MEQ/D5NS 1L 1,000 ML IV PRN ×2 (05:42→23:30)
[2017-01-08 07:29] LABS: ABSOLUTE EOSINOPHILS # (AUTO) 0.2 10^3/uL (0.0-0.6); ABSOLUTE LYMPHOCYTES (AUTO) 1.4 10^3/uL (0.5-4.7); ABSOLUTE MONOCYTES (AUTO) 0.7 10^3/uL (0.1-1.4); ABSOLUTE NEUT (AUTO) 7.6 10^3/uL (1.7-8.2); BASOPHILS % (AUTO) 0.2 % (0-2); EOSINOPHILS % (AUTO) 1.8 % (0-6); HEMATOCRIT 29.5 % (36.0-47.0); HEMOGLOBIN 10.4 g/dL (12.0-15.5); HGB HCT DIFFERENCE 1.7; LYMPHOCYTES % (AUTO) 14.5 % (13-45); MEAN CORPUSCULAR HEMOGLOBIN 31.9 pg (27.0-33.4); MEAN CORPUSCULAR HGB CONC 35.2 g/dL (32.0-36.0); MEAN CORPUSCULAR VOLUME 91 fl (80-97); MONOCYTES % (AUTO) 6.7 % (3-13); RED BLOOD COUNT 3.26 10^6/uL (3.72-5.28); RED CELL DISTRIBUTION WIDTH 13.5 % (11.5-14.0); SEGMENTED NEUTROPHILS % (AUTO) 76.8 % (42-78); WHITE BLOOD COUNT 9.9 10^3/uL (4.0-10.5)
[2017-01-08 07:47] LABS: PHOSPHORUS 1.6 mg/dL (2.5-4.5)
[2017-01-08 07:53] LABS: ALANINE AMINOTRANSFERASE 23 U/L (9-52); ALBUMIN 2.6 g/dL (3.5-5.0); ALKALINE PHOSPHATASE 60 U/L (38-126); ANION GAP 11 (5-19); ASPARTATE AMINO TRANSFERASE 17 U/L (14-36); BILIRUBIN,DIRECT 0.3 mg/dL (0.0-0.4); BILIRUBIN,TOTAL 0.5 mg/dL (0.2-1.3); BLOOD UREA NITROGEN 5 mg/dL (7-20); CALCIUM 8.5 mg/dL (8.4-10.2); CARBON DIOXIDE 30 mmol/L (22-30); CHLORIDE 103 mmol/L (98-107); GLUCOSE 202 mg/dL (75-110); MAGNESIUM 1.9 mg/dL (1.6-2.3); SODIUM 143.8 mmol/L (137-145); TOTAL PROTEIN 5.5 g/dL (6.3-8.2); TRIGLYCERIDES 59 mg/dL (<150)
[2017-01-08 07:54] LABS: PREALBUMIN 8.7 mg/dL (17.6-36.0)
[2017-01-08] MEDS: POTASSI CL 20 MEQ/50 ML RIDER 50 ML IV SCH ×3 (09:59→16:21)
[2017-01-08] MEDS ORDERED: FAT EMULSIONS 250 ML IV SCH (10:00)
[2017-01-08] MEDS: ENOXAPARIN SODIUM INJ 40 MG/0.4 ML DISP.SYRIN SUBCUT SCH (12:02)
[2017-01-08] MEDS: HYDROMORPHONE HCL INJ/PF 2 MG/ML AMPULE IV PRN ×2 (12:21→16:20)
[2017-01-08] MEDS: AMINO ACIDS 5%/D25W 1,000 ML IV PRN (16:07)
[2017-01-08] MEDS ORDERED: LABETALOL HCL INJ 20 MG/4 ML DISP.SYRIN IV PRN (17:25)
--- NOTE | 2017-01-08 17:33 | PDOC PROGRESS REPORT ---
Subjective Progress Note for:: 01/08/17 Subjective:: She had repeat exploratory laparotomy on 01/04/2017 for partial small bowel obstruction with lysis of adhesions, small bowel resection and appendectomy. She was exturbated on 01/05/2017. Today is day 4 post- op for repeat laparotomy. She has passed flatus. She was started on TPN today by surgical team. He potassium today 3.0 but has been corrected by the surgical team. Monitor her chemistry daily.We will optimize her BP control by restarting Labetalol IV prn. Physical Exam Vital Signs: Temp Pulse Resp BP Pulse Ox 98.9 F 97 16 150/94 H 99 01/08/17 12:00 01/08/17 12:00 01/08/17 12:00 01/08/17 12:00 01/08/17 12:00 Intake & Output 01/07/17 01/08/17 01/09/17 06:59 06:59 06:59 Intake Total 1564 2671 Output Total 3050 1200 600 Balance -1486 1471 -600 Weight 73.5 kg 73.5 kg General appearance: PRESENT: no acute distress, well-developed, well-nourished Eye exam: PRESENT: EOMI, PERRLA Mouth exam: PRESENT: moist, neck supple, tongue midline Neck exam: PRESENT: full ROM Respiratory exam: PRESENT: clear to auscultation kianna, symmetrical Cardiovascular exam: PRESENT: +S1, +S2 Pulses: PRESENT: +2 pedal pulses bilateral GI/Abdominal exam: PRESENT: diminished bowel sounds, soft, tenderness Rectal exam: PRESENT: deferred Extremities exam: PRESENT: full ROM Neurological exam: PRESENT: alert, awake, oriented to person, oriented to place , oriented to time Psychiatric exam: PRESENT: normal mood Results Laboratory Results: 01/08/17 07:01 01/08/17 01/08/17 01/08/17 07:01 07:01 07:01 WBC 9.9 RBC 3.26 L Hgb 10.4 L Hct 29.5 L MCV 91 MCH 31.9 MCHC 35.2 RDW 13.5 Plt Count 388 Seg Neutrophils % 76.8 Lymphocytes % 14.5 Monocytes % 6.7 Eosinophils % 1.8 Basophils % 0.2 Absolute Neutrophils 7.6 Absolute Lymphocytes 1.4 Absolute Monocytes 0.7 Absolute Eosinophils 0.2 Absolute Basophils 0.0 Sodium Cancelled 143.8 Potassium Cancelled 3.0 L* Chloride Cancelled 103 Carbon Dioxide Cancelled 30 Anion Gap Cancelled 11 BUN Cancelled 5 L Creatinine Cancelled 0.40 L Est GFR ( Amer) Cancelled > 60 Est GFR (Non-Af Amer) Cancelled > 60 Glucose Cancelled 202 H Calcium Cancelled 8.5 Phosphorus 1.6 L Magnesium 1.9 Total Bilirubin 0.5 AST 17 ALT 23 Alkaline Phosphatase 60 Total Protein 5.5 L Albumin 2.6 L Prealbumin 8.7 L Triglycerides 59 Impressions: KUB X-Ray 12/26/16 09:41 IMPRESSION: Nonspecific bowel gas pattern Small Bowel X-Ray 12/27/16 00:00 IMPRESSION: Gastric outlet obstruction. Unable to evaluate small bowel Findings and limitations discussed with the patient's attending surgeon Abdomen/Pelvis CT 01/04/17 00:00 IMPRESSION: 1. Subsegmental atelectasis in the lung bases. 2. There is a small amount of free fluid in the abdomen P 3. There are dilated loops of small bowel as described. Pedicular concerning is a loop of bowel on the left side. This could pain paraduodenal hernia. The thickening of the bowel wall is concerning perhaps for vascular compromise. Chest X-Ray 01/06/17 16:00 IMPRESSION: 1. The patient has been extubated since prior study. There is bibasilar atelectasis. 2. Central line has been added as described. Catheter tip overlies the right atrium. No pneumothorax. 3. NG tube remains in place. Assessment & Plan - Diagnosis (1) Small bowel obstruction Is this a current diagnosis for this admission?: YesPlan: Ct with ambulation. Ct with Dilaudid 2mg q2h IV prn; Ct with IV fluid D5 saline plus 20 mEQ of KCL at 83cc/hr; Ct with TPN. f/u general surgeons for mgt. (2) Clostridium difficile colitis Is this a current diagnosis for this admission?: YesPlan: Ct with Flagyl 500 mg q6h IV and Vancomycin 125 mg q6h po for 14 days. (3) Hypertension Qualifiers: Hypertension type: essential hypertension Qualified Code(s): I10 - Essential (primary) hypertension Is this a current diagnosis for this admission?: YesPlan: Ct with Hydralazine 10mg q6h IV prn . Ct with Labetalol 10 mg q6h IV prn . (4) Hypokalemia Is this a current diagnosis for this admission?: YesPlan: She was given KCL IV; Ct with IV fluids D5 saline with KCL 20 MEQ at 83cc/hr;. Monitor chemistry daily.. (5) Hyperlipidemia Qualifiers: Hyperlipidemia type: unspecified Qualified Code(s): E78.5 - Hyperlipidemia, unspecified Is this a current diagnosis for this admission?: YesPlan: She is NPO for now; Ct with conservative mgt. (6) Lumbago Qualifiers: Chronicity: unspecified Back pain laterality: unspecified Sciatica presence: unspecified whether sciatica present Qualified Code(s): M54.5 - Low back pain Is this a current diagnosis for this admission?: YesPlan: Ct with Morphine 4 mg q4h prn IV; Ct with Tylenol 650 mg q6h prn po. (7) DVT prophylaxis Is this a current diagnosis for this admission?: YesPlan: Ct with Lovenox 40 mg qd subcut; SCD.
[2017-01-08] MEDS: HYDRALAZINE HCL INJ/PF 20 MG/1 ML SDV IV PRN (18:45)
[2017-01-08 21:52] LABS: CREATINE KINASE MB < 0.22 ng/mL (<4.55); TROPONIN I < 0.012 ng/mL
[2017-01-09 03:23] LABS: CREATINE KINASE MB < 0.22 ng/mL (<4.55); TROPONIN I < 0.012 ng/mL
[2017-01-09] MEDS: METRONIDAZOLE 500 MG/NS RTU 100 ML IV SCH ×3 (06:24→17:21)
[2017-01-09] MEDS: VANCOMYCIN HCL INJ 500 MG VIAL PO SCH ×3 (06:24→17:20)
[2017-01-09 07:38] LABS: ALANINE AMINOTRANSFERASE 21 U/L (9-52); ALBUMIN 2.7 g/dL (3.5-5.0); ALKALINE PHOSPHATASE 62 U/L (38-126); ANION GAP 14 (5-19); ASPARTATE AMINO TRANSFERASE 16 U/L (14-36); BILIRUBIN,DIRECT 0.3 mg/dL (0.0-0.4); BILIRUBIN,TOTAL 0.4 mg/dL (0.2-1.3); BLOOD UREA NITROGEN 6 mg/dL (7-20); CALCIUM 8.8 mg/dL (8.4-10.2); CARBON DIOXIDE 29 mmol/L (22-30); CHLORIDE 104 mmol/L (98-107); CREATININE RESULT 0.42 mg/dL (0.52-1.25); GLUCOSE 143 mg/dL (75-110); PHOSPHORUS 2.4 mg/dL (2.5-4.5); POTASSIUM 3.6 mmol/L (3.6-5.0); SODIUM 147.1 mmol/L (137-145); TOTAL PROTEIN 5.6 g/dL (6.3-8.2)
[2017-01-09 07:45] LABS: PREALBUMIN 11.6 mg/dL (17.6-36.0)
--- NOTE | 2017-01-09 07:54 | EKG REPORT ---
SEVERITY:- BORDERLINE ECG - SINUS TACHYCARDIA BORDERLINE T WAVE ABNORMALITIES , DIFFUSE LEADS : Confirmed by: Natanael Spicer MD 09-Jan-2017 07:53:40
[2017-01-09 07:55] LABS: CREATINE KINASE MB < 0.22 ng/mL (<4.55); TROPONIN I < 0.012 ng/mL
[2017-01-09] MEDS: ENOXAPARIN SODIUM INJ 40 MG/0.4 ML DISP.SYRIN SUBCUT SCH (11:36)
[2017-01-09] MEDS: AMINO ACIDS 5%/D25W 1,000 ML IV PRN (12:56)
[2017-01-09] MEDS ORDERED: FENTANYL CITRATE INJ/PF 100 MCG/2 ML AMPUL IV PRN (12:58)
--- NOTE | 2017-01-09 16:46 | PDOC PROGRESS REPORT ---
Subjective Subjective:: She had repeat exploratory laparotomy on 01/04/2017 for partial small bowel obstruction with lysis of adhesions, small bowel resection and appendectomy. She was exturbated on 01/05/2017. Today is day 4 post- op for repeat laparotomy. She has passed flatus. She was started on TPN today by surgical team. Her potassium today 3.6 after it was corrected by the surgical team. Monitor her chemistry daily.We will optimize her BP control by ct Labetalol IV prn and Hydralazine IV prn.. Physical Exam Vital Signs: Temp Pulse Resp BP Pulse Ox 98.9 F 95 16 158/96 H 99 01/09/17 16:09 01/09/17 16:09 01/09/17 16:09 01/09/17 16:09 01/09/17 16:09 Intake & Output 01/08/17 01/09/17 01/10/17 06:59 06:59 06:59 Intake Total 2671 1518 Output Total 1200 2675 Balance 1471 -1157 Weight 73.5 kg 73.3 kg General appearance: PRESENT: mild distress, well-developed, well-nourished Head exam: PRESENT: atraumatic, normocephalic Eye exam: PRESENT: EOMI, PERRLA Ear exam: PRESENT: TM's normal bilaterally Mouth exam: PRESENT: neck supple Respiratory exam: PRESENT: clear to auscultation kianna, symmetrical Cardiovascular exam: PRESENT: +S1, +S2 GI/Abdominal exam: PRESENT: diminished bowel sounds, distended, tenderness Rectal exam: PRESENT: deferred Extremities exam: PRESENT: full ROM Neurological exam: PRESENT: alert, awake, oriented to person, oriented to place , oriented to time Psychiatric exam: PRESENT: normal mood Results Laboratory Results: 01/08/17 07:01 01/09/17 06:45 01/08/17 01/08/17 01/09/17 17:10 17:10 06:45 Sodium 147.1 H Potassium 3.4 L 3.6 Chloride 104 Carbon Dioxide 29 Anion Gap 14 BUN 6 L Creatinine 0.42 L Est GFR ( Amer) > 60 Est GFR (Non-Af Amer) > 60 Glucose 143 H Calcium 8.8 Phosphorus 2.4 L Total Bilirubin 0.4 AST 16 ALT 21 Alkaline Phosphatase 62 Total Protein 5.6 L Albumin 2.7 L Prealbumin 11.6 L Triglycerides 139 01/08/17 01/08/17 01/09/17 20:11 20:11 02:23 Creatine Kinase 95 82 CK-MB (CK-2) < 0.22 Troponin I < 0.012 01/09/17 01/09/17 01/09/17 02:23 06:45 06:45 Creatine Kinase 79 CK-MB (CK-2) < 0.22 < 0.22 Troponin I < 0.012 < 0.012 Impressions: KUB X-Ray 12/26/16 09:41 IMPRESSION: Nonspecific bowel gas pattern Small Bowel X-Ray 12/27/16 00:00 IMPRESSION: Gastric outlet obstruction. Unable to evaluate small bowel Findings and limitations discussed with the patient's attending surgeon Abdomen/Pelvis CT 01/04/17 00:00 IMPRESSION: 1. Subsegmental atelectasis in the lung bases. 2. There is a small amount of free fluid in the abdomen P 3. There are dilated loops of small bowel as described. Pedicular concerning is a loop of bowel on the left side. This could pain paraduodenal hernia. The thickening of the bowel wall is concerning perhaps for vascular compromise. Chest X-Ray 01/06/17 16:00 IMPRESSION: 1. The patient has been extubated since prior study. There is bibasilar atelectasis. 2. Central line has been added as described. Catheter tip overlies the right atrium. No pneumothorax. 3. NG tube remains in place. Assessment & Plan - Diagnosis (1) Small bowel obstruction Is this a current diagnosis for this admission?: YesPlan: Ct with ambulation. Ct with Dilaudid 2mg q2h IV prn; Ct with IV fluid D5 saline plus 20 mEQ of KCL at 83cc/hr; Ct with TPN. f/u general surgeons for mgt. (2) Clostridium difficile colitis Is this a current diagnosis for this admission?: YesPlan: Ct with Flagyl 500 mg q6h IV and Vancomycin 125 mg q6h po via NG tube for 14 days. (3) Hypertension Qualifiers: Hypertension type: essential hypertension Qualified Code(s): I10 - Essential (primary) hypertension Is this a current diagnosis for this admission?: YesPlan: Ct with Hydralazine 10mg q6h IV prn . Ct with Labetalol 10 mg q6h IV prn . (4) Hypokalemia Is this a current diagnosis for this admission?: YesPlan: She was given KCL IV; Ct with IV fluids D5 saline with KCL 20 MEQ at 83cc/hr;. Monitor chemistry daily.. (5) Hyperlipidemia Qualifiers: Hyperlipidemia type: unspecified Qualified Code(s): E78.5 - Hyperlipidemia, unspecified Is this a current diagnosis for this admission?: YesPlan: She is NPO for now; Ct with conservative mgt. (6) Lumbago Qualifiers: Chronicity: unspecified Back pain laterality: unspecified Sciatica presence: unspecified whether sciatica present Qualified Code(s): M54.5 - Low back pain Is this a current diagnosis for this admission?: YesPlan: Ct with Morphine 4 mg q4h prn IV; Ct with Tylenol 650 mg q6h prn po. (7) DVT prophylaxis Is this a current diagnosis for this admission?: YesPlan: Ct with Lovenox 40 mg qd subcut; SCD.
[2017-01-09] MEDS: HYDROMORPHONE HCL INJ/PF 2 MG/ML AMPULE IV PRN (20:25)
[2017-01-10] MEDS: METRONIDAZOLE 500 MG/NS RTU 100 ML IV SCH ×3 (00:58→11:45)
[2017-01-10] MEDS: VANCOMYCIN HCL INJ 500 MG VIAL PO SCH ×3 (00:59→11:49)
[2017-01-10] MEDS: HYDROMORPHONE HCL INJ/PF 2 MG/ML AMPULE IV PRN ×3 (01:12→20:59)
--- NOTE | 2017-01-10 01:18 | PROGRESS NOTE E ---
Progress Note NAME: LEELEE HANDY : 1960 AGE: 56Y DATE: 01/09/2017 ROOM: 404 Patient had undergone lysis of adhesions, and then reexploration for continued bowel obstruction. She also has C. difficile infection. SUBJECTIVE: Patient does have some abdominal pain. She does feel that she has worsening with Dilaudid or morphine given for pain. She had a semiformed bowel movement. She still has complaints of some distention. OBJECTIVE: Patient has high pitched bowel sounds with mild distention. Incision is without evidence of infection. ASSESSMENT: 1. Recent bowel obstruction secondary to adhesions status post lysis of adhesions with distal small bowel resection and appendectomy. We are waiting return of full bowel function. She has had over 2 L of bilious output through her NG tube. We will continue with NG tube suction along with TPN and n.p.o. at the current time. 2. C. difficile infection. Her white count is down to normal now. She is on IV Flagyl. It is unknown how significant this C. difficile infection is at the current time or whether it is contributing to her ileus. The real only option to treat it at the current time is to consider vancomycin enemas. I am concerned that with the appendectomy, doing the enemas may cause issues with the closure site. I would recommend continued observation. If she worsened, then consideration for the vancomycin enemas. PLAN: 1. N.P.O. 2. IV fluid and TPN. 3. NG tube to suction. 4. IV Flagyl with oral vancomycin for C. difficile colitis. DICTATING PHYSICIAN: JAYESH CABRAL M.D. [id number] PHY#: [id number] ID: [id number] JOB#: [id number] ACCT: [id number] cc: > [facility]
[2017-01-10 08:53] LABS: ALANINE AMINOTRANSFERASE 25 U/L (9-52); ALBUMIN 2.7 g/dL (3.5-5.0); ALKALINE PHOSPHATASE 59 U/L (38-126); ANION GAP 11 (5-19); ASPARTATE AMINO TRANSFERASE 14 U/L (14-36); BILIRUBIN,DIRECT 0.1 mg/dL (0.0-0.4); BILIRUBIN,TOTAL 0.2 mg/dL (0.2-1.3); BLOOD UREA NITROGEN 6 mg/dL (7-20); CALCIUM 8.8 mg/dL (8.4-10.2); CARBON DIOXIDE 28 mmol/L (22-30); CHLORIDE 103 mmol/L (98-107); CREATININE RESULT 0.41 mg/dL (0.52-1.25); GLUCOSE 170 mg/dL (75-110); PHOSPHORUS 3.2 mg/dL (2.5-4.5); SODIUM 142.3 mmol/L (137-145); TOTAL PROTEIN 5.5 g/dL (6.3-8.2)
[2017-01-10] MEDS: AMINO ACIDS 5%/D25W 1,000 ML IV PRN (08:58)
[2017-01-10] MEDS: ENOXAPARIN SODIUM INJ 40 MG/0.4 ML DISP.SYRIN SUBCUT SCH (09:00)
[2017-01-10] MEDS ORDERED: KETOROLAC TROMETHAMINE INJ/PF 30 MG/1 ML SDV IV PRN (11:57)
[2017-01-10] MEDS: POTASSI CL 20 MEQ/D5NS 1L 1,000 ML IV PRN (13:02)
--- NOTE | 2017-01-10 16:47 | PDOC PROGRESS REPORT ---
Subjective Progress Note for:: 01/10/17 Subjective:: She had repeat exploratory laparotomy on 01/04/2017 for partial small bowel obstruction with lysis of adhesions, small bowel resection and appendectomy. She was exturbated on 01/05/2017. Today is day 6 post- op for repeat laparotomy. She has passed flatus. She was started on TPN on 01/08/2017 by surgical team. Her potassium today 3.6 after it was corrected by the surgical team. Monitor her chemistry daily.We will optimize her BP control by ct Labetalol IV prn and Hydralazine IV prn..She has passed bowel movement, though she still has some bowel distension. Ct with NG tube drainage. Physical Exam Vital Signs: Temp Pulse Resp BP Pulse Ox 99.1 F 107 H 18 154/96 H 99 01/10/17 16:00 01/10/17 16:00 01/10/17 16:00 01/10/17 16:00 01/10/17 16:00 Intake & Output 01/09/17 01/10/17 01/11/17 06:59 06:59 06:59 Intake Total 1518 0 Output Total 2675 1300 Balance -1157 -1300 Weight 73.3 kg 75.1 kg General appearance: PRESENT: no acute distress, well-developed, well-nourished Eye exam: PRESENT: EOMI, PERRLA Ear exam: PRESENT: normal external ear exam, TM's normal bilaterally Mouth exam: PRESENT: moist, neck supple, tongue midline Respiratory exam: PRESENT: clear to auscultation kianna, symmetrical Cardiovascular exam: PRESENT: +S1, +S2 Pulses: PRESENT: +2 pedal pulses bilateral GI/Abdominal exam: PRESENT: diminished bowel sounds, distended, soft, tenderness Rectal exam: PRESENT: deferred Extremities exam: PRESENT: full ROM Musculoskeletal exam: PRESENT: full ROM Neurological exam: PRESENT: alert, awake, oriented to person, oriented to place , oriented to time Psychiatric exam: PRESENT: normal mood Results Laboratory Results: 01/08/17 07:01 01/10/17 07:23 01/10/17 07:23 Sodium 142.3 Potassium 4.0 Chloride 103 Carbon Dioxide 28 Anion Gap 11 BUN 6 L Creatinine 0.41 L Est GFR ( Amer) > 60 Est GFR (Non-Af Amer) > 60 Glucose 170 H Calcium 8.8 Phosphorus 3.2 Total Bilirubin 0.2 AST 14 ALT 25 Alkaline Phosphatase 59 Total Protein 5.5 L Albumin 2.7 L Prealbumin 15.0 L 01/08/17 01/08/17 01/09/17 20:11 20:11 02:23 Creatine Kinase 95 82 CK-MB (CK-2) < 0.22 Troponin I < 0.012 01/09/17 01/09/17 01/09/17 02:23 06:45 06:45 Creatine Kinase 79 CK-MB (CK-2) < 0.22 < 0.22 Troponin I < 0.012 < 0.012 Impressions: KUB X-Ray 12/26/16 09:41 IMPRESSION: Nonspecific bowel gas pattern Small Bowel X-Ray 12/27/16 00:00 IMPRESSION: Gastric outlet obstruction. Unable to evaluate small bowel Findings and limitations discussed with the patient's attending surgeon Abdomen/Pelvis CT 01/04/17 00:00 IMPRESSION: 1. Subsegmental atelectasis in the lung bases. 2. There is a small amount of free fluid in the abdomen P 3. There are dilated loops of small bowel as described. Pedicular concerning is a loop of bowel on the left side. This could pain paraduodenal hernia. The thickening of the bowel wall is concerning perhaps for vascular compromise. Chest X-Ray 01/06/17 16:00 IMPRESSION: 1. The patient has been extubated since prior study. There is bibasilar atelectasis. 2. Central line has been added as described. Catheter tip overlies the right atrium. No pneumothorax. 3. NG tube remains in place. Assessment & Plan - Diagnosis (1) Small bowel obstruction Is this a current diagnosis for this admission?: YesPlan: Ct with ambulation. Ct with Dilaudid 1mg q3h IV prn; Ct with Fentanyl 50 mcg q4h prn IV; Ct with Toradol 15 mg q6h prn IV; Ct with IV fluid D5 saline plus 20 mEQ of KCL at 83cc/hr; Ct with TPN. Ct with NG tube drainage. F/u general surgeons for mgt. (2) Clostridium difficile colitis Is this a current diagnosis for this admission?: YesPlan: Ct with Flagyl 500 mg q6h IV and Vancomycin 125 mg q6h po via NG tube for 14 days. (3) Hypertension Qualifiers: Hypertension type: essential hypertension Qualified Code(s): I10 - Essential (primary) hypertension Is this a current diagnosis for this admission?: YesPlan: Ct with Hydralazine 10mg q6h IV prn . Ct with Labetalol 10 mg q6h IV prn . (4) Hypokalemia Is this a current diagnosis for this admission?: YesPlan: She was given KCL IV; Ct with IV fluids D5 saline with KCL 20 MEQ at 83cc/hr;. Monitor chemistry daily.. (5) Hyperlipidemia Qualifiers: Hyperlipidemia type: unspecified Qualified Code(s): E78.5 - Hyperlipidemia, unspecified Is this a current diagnosis for this admission?: YesPlan: She is NPO for now; Ct with conservative mgt. (6) Lumbago Qualifiers: Chronicity: unspecified Back pain laterality: unspecified Sciatica presence: unspecified whether sciatica present Qualified Code(s): M54.5 - Low back pain Is this a current diagnosis for this admission?: YesPlan: Ct with Morphine 4 mg q4h prn IV; Ct with Tylenol 650 mg q6h prn po. (7) DVT prophylaxis Is this a current diagnosis for this admission?: YesPlan: Ct with Lovenox 40 mg qd subcut; SCD.
[2017-01-10] MEDS ORDERED: LABETALOL HCL INJ 20 MG/4 ML DISP.SYRIN IV PRN (18:23)
[2017-01-10] MEDS ORDERED: INSULIN REG, HUMAN 100 UNIT/ML 3 ML VIAL (PYX) SUBCUT PRN (18:25)
[2017-01-10] MEDS ORDERED: DEXTROSE 50%-WATER SYRINGE 12.5 GM/25 ML DOSE IV PRN (18:25)
[2017-01-10] MEDS ORDERED: DEXTROSE 50%-WATER SYRINGE 25 GM/50 ML DOSE IV PRN (18:26)
[2017-01-10] MEDS ORDERED: DEXTROSE 40% GEL 15 GM TUBE PO PRN (18:27)
[2017-01-10] MEDS ORDERED: DEXTROSE 40% GEL 15 GM TUBE X 2 PO PRN (18:27)
[2017-01-10] MEDS ORDERED: FENTANYL CITRATE INJ/PF 100 MCG/2 ML AMPUL IV PRN (18:29)
[2017-01-10] MEDS ORDERED: GLUCAGON,HUMAN RECOMB 1 MG INJ IM PRN (18:30)
[2017-01-10] MEDS ORDERED: DEXTROSE 10%-WATER 1,000 ML IV PRN (18:31)
[2017-01-10] MEDS: KETOROLAC TROMETHAMINE INJ/PF 30 MG/1 ML SDV IV PRN (18:33)
[2017-01-10] MEDS ORDERED: HYDRALAZINE HCL INJ/PF 20 MG/1 ML SDV IV PRN (18:34)
--- NOTE | 2017-01-10 22:53 | PROGRESS NOTE E ---
Progress Note NAME: LEELEE HANDY : 1960 AGE: 56Y DATE: 01/10/2017 ROOM: 404 Patient had undergone exploratory laparotomy and lysis of adhesions, and then a second laparotomy with small bowel resection for obstruction, as well as appendectomy. She was also found to have Clostridium difficile colitis. SUBJECTIVE: Patient is still having intermittent mid-abdominal pain. She states that the narcotics seem to at least initially make it worse. She has had a semi-formed bowel movement today. OBJECTIVE: Patient's abdomen is mildly distended. No significant tenderness. Incision is clean. VITAL SIGNS: Blood pressure 156/96, temperature 99.6, pulse 103. LABORATORY DATA: White blood cell count 9.9, hemoglobin 10.4. ASSESSMENT AND PLAN: 1. Bowel obstruction status post lysis of adhesions and partial resection. She continues to have an ileus; however, it does seem to be improving. Her NG output is bilious but it has decreased from 2000 to 1000 mL. She also had a semi-formed bowel movement today. I would recommend continuing NG tube suction along with TPN. 2. Clostridium difficile colitis. She is receiving vancomycin through the NG tube but it is doubtful that that is actually reaching the colon at this time. She is also on IV Flagyl. Her white blood count is normal and she is starting to have firmer bowel movements. Once her ileus resolves, hopefully vancomycin will be able to reach the colon to aid in clearing the C. difficile infection. Certainly, the C. difficile infection can also cause an ileus but that ileus seems to be resolving. 3. We will add Toradol to her pain regimen to see if this will help with her abdominal discomfort. DICTATING PHYSICIAN: JAYESH CABRAL M.D. [id number] PHY#: [id number] ID: [id number] JOB#: [id number] ACCT: [id number] cc: >
[2017-01-11] MEDS: VANCOMYCIN HCL INJ 500 MG VIAL PO SCH ×4 (01:01→18:12)
[2017-01-11] MEDS ORDERED: D5NS IV ONE (01:38)
[2017-01-11] MEDS ORDERED: POTASSI CL IV ONE (01:38)
[2017-01-11] MEDS: KETOROLAC TROMETHAMINE INJ/PF 30 MG/1 ML SDV IV PRN ×2 (01:49→22:44)
[2017-01-11] MEDS: AMINO ACIDS 5%/D25W 1,000 ML IV PRN ×2 (03:53→23:32)
--- NOTE | 2017-01-11 08:53 | PROGRESS NOTE E ---
Progress Note NAME: LEELEE HANDY : 1960 AGE: 56Y DATE: 01/08/2017 ROOM: 404 CHIEF COMPLAINT: The patient underwent a laparotomy with lysis of adhesions and then a follow-up laparotomy with partial small bowel resection and appendectomy. SUBJECTIVE: The patient has not had any flatus. She is still having some occasional mid abdominal pain. She currently has an NG tube in place. OBJECTIVE: ABDOMEN: The patient's abdominal incision is clean. Abdomen is distended with high-pitched bowel sounds. VITAL SIGNS: Blood pressure 129/86, temperature 99.6, pulse 122. NG tube 2 L. DIAGNOSTIC DATA: White blood cell count of 10, hemoglobin of 10. ASSESSMENT: 1. STATUS POST LYSIS OF ADHESIONS WITH PARTIAL SMALL BOWEL RESECTION. THE PATIENT HAS CONTINUED ILEUS. RECOMMEND CONTINUING NG TUBE AND TPN. 2. CLOSTRIDIUM DIFFICILE COLITIS IN WHICH SHE IS CURRENTLY ON IV FLAGYL AND ORAL VANCOMYCIN. PLAN: 1. Continue n.p.o. and NG tube to low wall suction. 2. TPN. 3. Treatment for C. difficile colitis. DICTATING PHYSICIAN: JAYESH CABRAL M.D. [id number] PHY#: [id number] ID: [id number] JOB#: [id number] ACCT: [id number] cc: >
[2017-01-11 09:15] LABS: ALANINE AMINOTRANSFERASE 18 U/L (9-52); ALBUMIN 2.9 g/dL (3.5-5.0); ALKALINE PHOSPHATASE 65 U/L (38-126); ANION GAP 14 (5-19); ASPARTATE AMINO TRANSFERASE 15 U/L (14-36); BILIRUBIN,DIRECT 0.2 mg/dL (0.0-0.4); BILIRUBIN,TOTAL 0.3 mg/dL (0.2-1.3); BLOOD UREA NITROGEN 12 mg/dL (7-20); CALCIUM 9.5 mg/dL (8.4-10.2); CARBON DIOXIDE 30 mmol/L (22-30); CHLORIDE 104 mmol/L (98-107); CREATININE RESULT 0.48 mg/dL (0.52-1.25); GLUCOSE 109 mg/dL (75-110); PHOSPHORUS 4.3 mg/dL (2.5-4.5); POTASSIUM 4.7 mmol/L (3.6-5.0); SODIUM 147.9 mmol/L (137-145)
[2017-01-11 09:23] LABS: PREALBUMIN 18.8 mg/dL (17.6-36.0)
[2017-01-11] MEDS: ENOXAPARIN SODIUM INJ 40 MG/0.4 ML DISP.SYRIN SUBCUT SCH (09:49)
[2017-01-11] MEDS ORDERED: FAT EMULSIONS 250 ML IV SCH (10:00)
[2017-01-11] MEDS: HYDROMORPHONE HCL INJ/PF 2 MG/ML AMPULE IV PRN (10:00)
[2017-01-11] MEDS ORDERED: MORPHINE SULFATE 60 MG/60 ML RTUINJ IV PRN (12:37)
--- NOTE | 2017-01-11 12:43 | PROGRESS NOTE E ---
Progress Note NAME: LEELEE HANDY : 1960 AGE: 56Y DATE: 01/11/2017 ROOM: 404 SUBJECTIVE: The patient is a 56-year-old female who has been in the hospital for several days. She was admitted with a small bowel obstruction and underwent a lysis of adhesions. Subsequently she did not resolve an ileus and was taken back to the operating room and a small bowel resection was done. She is currently also being treated for C. diff. Subjectively, she says she is feeling somewhat better. In fact, she is having watery bowel movements. She is also having a persistent large amount of NG output. Her wounds are healing well. PLAN: Continue the NG output and await for this to resolve. We will continue Flagyl on her. DICTATING PHYSICIAN: QUIRINO ANN M.D. [id number] PHY#: [id number] ID: [id number] JOB#: [id number] ACCT: [id number] cc: >
--- NOTE | 2017-01-11 16:55 | PDOC PROGRESS REPORT ---
Subjective Progress Note for:: 01/11/17 Subjective:: She had repeat exploratory laparotomy on 01/04/2017 for partial small bowel obstruction with lysis of adhesions, small bowel resection and appendectomy. She was exturbated on 01/05/2017. Today is day 7 post- op for repeat laparotomy. She has passed flatus. She was started on TPN on 01/08/2017 by surgical team. Her potassium today 3.6 after it was corrected by the surgical team. Monitor her chemistry daily.We will optimize her BP control by ct Labetalol IV prn and Hydralazine IV prn..She has passed watery bowel movement, though she still has some bowel distension.She is still having sig. amount of NG tube drainage. Ct with NG tube drainage. Physical Exam Vital Signs: Temp Pulse Resp BP Pulse Ox 99.3 F 111 H 16 131/93 H 100 01/11/17 10:00 01/11/17 10:00 01/11/17 10:00 01/11/17 10:00 01/11/17 10:00 Intake & Output 01/10/17 01/11/17 01/12/17 06:59 06:59 06:59 Intake Total 0 1103 Output Total 1300 1500 Balance -1300 -397 Weight 75.1 kg 72.3 kg General appearance: PRESENT: no acute distress, well-developed, well-nourished Head exam: PRESENT: atraumatic, normocephalic Eye exam: PRESENT: EOMI, PERRLA Mouth exam: PRESENT: moist, neck supple Respiratory exam: PRESENT: clear to auscultation kianna, symmetrical Cardiovascular exam: PRESENT: +S1, +S2 Pulses: PRESENT: +2 pedal pulses bilateral GI/Abdominal exam: PRESENT: normal bowel sounds, soft Rectal exam: PRESENT: deferred Musculoskeletal exam: PRESENT: ambulatory, full ROM Neurological exam: PRESENT: alert, awake, oriented to person, oriented to place , oriented to time Psychiatric exam: PRESENT: normal mood Results Laboratory Results: 01/08/17 07:01 01/11/17 08:27 01/11/17 08:27 Sodium 147.9 H Potassium 4.7 Chloride 104 Carbon Dioxide 30 Anion Gap 14 BUN 12 Creatinine 0.48 L Est GFR ( Amer) > 60 Est GFR (Non-Af Amer) > 60 Glucose 109 Calcium 9.5 Phosphorus 4.3 Total Bilirubin 0.3 AST 15 ALT 18 Alkaline Phosphatase 65 Total Protein 6.0 L Albumin 2.9 L Prealbumin 18.8 01/08/17 01/08/17 01/09/17 20:11 20:11 02:23 Creatine Kinase 95 82 CK-MB (CK-2) < 0.22 Troponin I < 0.012 01/09/17 01/09/17 01/09/17 02:23 06:45 06:45 Creatine Kinase 79 CK-MB (CK-2) < 0.22 < 0.22 Troponin I < 0.012 < 0.012 Impressions: KUB X-Ray 12/26/16 09:41 IMPRESSION: Nonspecific bowel gas pattern Small Bowel X-Ray 12/27/16 00:00 IMPRESSION: Gastric outlet obstruction. Unable to evaluate small bowel Findings and limitations discussed with the patient's attending surgeon Abdomen/Pelvis CT 01/04/17 00:00 IMPRESSION: 1. Subsegmental atelectasis in the lung bases. 2. There is a small amount of free fluid in the abdomen P 3. There are dilated loops of small bowel as described. Pedicular concerning is a loop of bowel on the left side. This could pain paraduodenal hernia. The thickening of the bowel wall is concerning perhaps for vascular compromise. Chest X-Ray 01/06/17 16:00 IMPRESSION: 1. The patient has been extubated since prior study. There is bibasilar atelectasis. 2. Central line has been added as described. Catheter tip overlies the right atrium. No pneumothorax. 3. NG tube remains in place. Assessment & Plan - Diagnosis (1) Small bowel obstruction Is this a current diagnosis for this admission?: YesPlan: Ct with ambulation. Ct with Dilaudid 1mg q3h IV prn; Ct with Fentanyl 50 mcg q4h prn IV; Ct with Toradol 15 mg q6h prn IV; Ct with IV fluid D5 saline plus 20 mEQ of KCL at 83cc/hr; Ct with TPN. Ct with NG tube drainage. F/u general surgeons for mgt. (2) Clostridium difficile colitis Is this a current diagnosis for this admission?: YesPlan: Ct with Flagyl 500 mg q6h IV and Vancomycin 125 mg q6h po via NG tube for 14 days. (3) Hypertension Qualifiers: Hypertension type: essential hypertension Qualified Code(s): I10 - Essential (primary) hypertension Is this a current diagnosis for this admission?: YesPlan: Ct with Hydralazine 10mg q6h IV prn . Ct with Labetalol 10 mg q6h IV prn . (4) Hypokalemia Is this a current diagnosis for this admission?: YesPlan: She was given KCL IV; Ct with IV fluids D5 saline with KCL 20 MEQ at 83cc/hr;. Monitor chemistry daily.. (5) Hyperlipidemia Qualifiers: Hyperlipidemia type: unspecified Qualified Code(s): E78.5 - Hyperlipidemia, unspecified Is this a current diagnosis for this admission?: YesPlan: She is NPO for now; Ct with conservative mgt. (6) Lumbago Qualifiers: Chronicity: unspecified Back pain laterality: unspecified Sciatica presence: unspecified whether sciatica present Qualified Code(s): M54.5 - Low back pain Is this a current diagnosis for this admission?: YesPlan: Ct with Morphine 4 mg q4h prn IV; Ct with Tylenol 650 mg q6h prn po. (7) DVT prophylaxis Is this a current diagnosis for this admission?: YesPlan: Ct with Lovenox 40 mg qd subcut; SCD.
[2017-01-12] MEDS: VANCOMYCIN HCL INJ 500 MG VIAL PO SCH ×4 (00:58→17:29)
[2017-01-12] MEDS: ENOXAPARIN SODIUM INJ 40 MG/0.4 ML DISP.SYRIN SUBCUT SCH (11:36)
--- NOTE | 2017-01-12 11:38 | PROGRESS NOTE E ---
Progress Note NAME: LEELEE HANDY : 1960 AGE: 56Y DATE: 01/12/2017 ROOM: 404 SUBJECTIVE: The patient is about the same. She continues to have bowel movements at least once or twice a day. She still has NG output of about 600 which was the same as yesterday. Her labs are within normal limits. Her wound has healed well. Patient has been requesting removal of the tube. I think it is reasonable since her NG output at this point is only about 600, to try clamping it and see what kind of a residual she gets. If the residual is high, the tube will remain in place and we probably should do a small bowel follow through. If residual is low and she can handle the NG tube removal, then would gradually try a diet. In the meantime, we will continue the TPN. DICTATING PHYSICIAN: QUIRINO ANN M.D. [id number] PHY#: [id number] ID: [id number] JOB#: [id number] ACCT: [id number] cc: >
[2017-01-12] MEDS: KETOROLAC TROMETHAMINE INJ/PF 30 MG/1 ML SDV IV PRN ×2 (13:06→20:27)
--- NOTE | 2017-01-12 16:18 | PDOC PROGRESS REPORT ---
Subjective Progress Note for:: 01/12/17 Subjective:: She had repeat exploratory laparotomy on 01/04/2017 for partial small bowel obstruction with lysis of adhesions, small bowel resection and appendectomy. She was exturbated on 01/05/2017. Today is day 8 post- op for repeat laparotomy. She has passed flatus. She was started on TPN on 01/08/2017 by surgical team. Her potassium today 3.6 after it was corrected by the surgical team. Monitor her chemistry daily.We will optimize her BP control by ct Labetalol IV prn and Hydralazine IV prn..She has been passing watery bowel movement, though she still has some bowel distension.Her NG tube drainage today is 600ml; the surgeons plan to clamp it and see if the residual is high or low. If it high, they will ct with NG tube drainage, but if it is low, they will D/C NG tube.Ct with TPN meanwhile. Physical Exam Vital Signs: Temp Pulse Resp BP Pulse Ox 98.3 F 109 H 18 149/96 H 100 01/12/17 13:32 01/12/17 13:32 01/12/17 15:53 01/12/17 13:32 01/12/17 15:53 Intake & Output 01/11/17 01/12/17 01/13/17 06:59 06:59 06:59 Intake Total 1103 2379 Output Total 1500 1600 Balance -397 779 Weight 72.3 kg 71.1 kg General appearance: PRESENT: no acute distress, well-developed, well-nourished Head exam: PRESENT: atraumatic, normocephalic Eye exam: PRESENT: EOMI, PERRLA Mouth exam: PRESENT: moist, neck supple, tongue midline Respiratory exam: PRESENT: clear to auscultation kianna, symmetrical Cardiovascular exam: PRESENT: +S1, +S2 Pulses: PRESENT: +2 pedal pulses bilateral GI/Abdominal exam: PRESENT: normal bowel sounds, soft, tenderness Rectal exam: PRESENT: deferred Extremities exam: PRESENT: full ROM Musculoskeletal exam: PRESENT: full ROM Neurological exam: PRESENT: alert, awake, oriented to person, oriented to place , oriented to time Psychiatric exam: PRESENT: normal mood Results Laboratory Results: 01/08/17 07:01 01/11/17 08:27 01/08/17 01/08/17 01/09/17 20:11 20:11 02:23 Creatine Kinase 95 82 CK-MB (CK-2) < 0.22 Troponin I < 0.012 01/09/17 01/09/17 01/09/17 02:23 06:45 06:45 Creatine Kinase 79 CK-MB (CK-2) < 0.22 < 0.22 Troponin I < 0.012 < 0.012 Impressions: KUB X-Ray 12/26/16 09:41 IMPRESSION: Nonspecific bowel gas pattern Small Bowel X-Ray 12/27/16 00:00 IMPRESSION: Gastric outlet obstruction. Unable to evaluate small bowel Findings and limitations discussed with the patient's attending surgeon Abdomen/Pelvis CT 01/04/17 00:00 IMPRESSION: 1. Subsegmental atelectasis in the lung bases. 2. There is a small amount of free fluid in the abdomen P 3. There are dilated loops of small bowel as described. Pedicular concerning is a loop of bowel on the left side. This could pain paraduodenal hernia. The thickening of the bowel wall is concerning perhaps for vascular compromise. Chest X-Ray 01/06/17 16:00 IMPRESSION: 1. The patient has been extubated since prior study. There is bibasilar atelectasis. 2. Central line has been added as described. Catheter tip overlies the right atrium. No pneumothorax. 3. NG tube remains in place. Assessment & Plan - Diagnosis (1) Small bowel obstruction Is this a current diagnosis for this admission?: YesPlan: Ct with ambulation. Ct with Dilaudid 1mg q3h IV prn; Ct with Fentanyl 50 mcg q4h prn IV; Ct with Toradol 15 mg q6h prn IV; Ct with IV fluid D5 saline plus 20 mEQ of KCL at 83cc/hr; Ct with TPN. Ct with NG tube drainage. F/u general surgeons for mgt. (2) Clostridium difficile colitis Is this a current diagnosis for this admission?: YesPlan: Ct with Flagyl 500 mg q6h IV and Vancomycin 125 mg q6h po via NG tube for 14 days. (3) Hypertension Qualifiers: Hypertension type: essential hypertension Qualified Code(s): I10 - Essential (primary) hypertension Is this a current diagnosis for this admission?: YesPlan: Ct with Hydralazine 10mg q6h IV prn . Ct with Labetalol 10 mg q6h IV prn . (4) Hypokalemia Is this a current diagnosis for this admission?: YesPlan: She was given KCL IV; Ct with IV fluids D5 saline with KCL 20 MEQ at 83cc/hr;. Monitor chemistry daily.. (5) Hyperlipidemia Qualifiers: Hyperlipidemia type: unspecified Qualified Code(s): E78.5 - Hyperlipidemia, unspecified Is this a current diagnosis for this admission?: YesPlan: She is NPO for now; Ct with conservative mgt. (6) Lumbago Qualifiers: Chronicity: unspecified Back pain laterality: unspecified Sciatica presence: unspecified whether sciatica present Qualified Code(s): M54.5 - Low back pain Is this a current diagnosis for this admission?: YesPlan: Ct with Morphine 4 mg q4h prn IV; Ct with Tylenol 650 mg q6h prn po. (7) DVT prophylaxis Is this a current diagnosis for this admission?: YesPlan: Ct with Lovenox 40 mg qd subcut; SCD.
[2017-01-12 18:06] LABS: HEMATOCRIT 33.2 % (36.0-47.0); HGB HCT DIFFERENCE -0.2; MEAN CORPUSCULAR HEMOGLOBIN 30.6 pg (27.0-33.4); MEAN CORPUSCULAR HGB CONC 33.3 g/dL (32.0-36.0); MEAN CORPUSCULAR VOLUME 92 fl (80-97); RED BLOOD COUNT 3.61 10^6/uL (3.72-5.28); RED CELL DISTRIBUTION WIDTH 13.7 % (11.5-14.0); WHITE BLOOD COUNT 12.5 10^3/uL (4.0-10.5)
[2017-01-12] MEDS: AMINO ACIDS 5%/D25W 1,000 ML IV PRN (20:06)
[2017-01-13] MEDS: VANCOMYCIN HCL INJ 500 MG VIAL PO SCH ×4 (00:40→17:49)
[2017-01-13] MEDS: ENOXAPARIN SODIUM INJ 40 MG/0.4 ML DISP.SYRIN SUBCUT SCH (08:48)
--- NOTE | 2017-01-13 09:38 | PDOC PROGRESS REPORT ---
Subjective Progress Note for:: 01/13/17 Subjective:: had BM No nausea Tolerating clears Physical Exam Vital Signs: Temp Pulse Resp BP Pulse Ox 98.5 F 117 H 16 143/88 H 99 01/13/17 08:00 01/13/17 08:00 01/13/17 08:00 01/13/17 08:00 01/13/17 08:00 Intake & Output 01/12/17 01/13/17 01/14/17 06:59 06:59 06:59 Intake Total 2379 1587 Output Total 1600 800 Balance 779 787 Weight 71.1 kg 72.2 kg GI/Abdominal exam: PRESENT: other - soft abdomen nontender Results Laboratory Results: 01/12/17 17:36 01/11/17 08:27 01/12/17 17:36 WBC 12.5 H RBC 3.61 L Hgb 11.0 L Hct 33.2 L MCV 92 MCH 30.6 MCHC 33.3 RDW 13.7 Plt Count 478 H 01/08/17 01/08/17 01/09/17 20:11 20:11 02:23 Creatine Kinase 95 82 CK-MB (CK-2) < 0.22 Troponin I < 0.012 01/09/17 01/09/17 01/09/17 02:23 06:45 06:45 Creatine Kinase 79 CK-MB (CK-2) < 0.22 < 0.22 Troponin I < 0.012 < 0.012 Impressions: KUB X-Ray 12/26/16 09:41 IMPRESSION: Nonspecific bowel gas pattern Small Bowel X-Ray 12/27/16 00:00 IMPRESSION: Gastric outlet obstruction. Unable to evaluate small bowel Findings and limitations discussed with the patient's attending surgeon Abdomen/Pelvis CT 01/04/17 00:00 IMPRESSION: 1. Subsegmental atelectasis in the lung bases. 2. There is a small amount of free fluid in the abdomen P 3. There are dilated loops of small bowel as described. Pedicular concerning is a loop of bowel on the left side. This could pain paraduodenal hernia. The thickening of the bowel wall is concerning perhaps for vascular compromise. Chest X-Ray 01/06/17 16:00 IMPRESSION: 1. The patient has been extubated since prior study. There is bibasilar atelectasis. 2. Central line has been added as described. Catheter tip overlies the right atrium. No pneumothorax. 3. NG tube remains in place. Assessment & Plan - Plan Summary Plan Summary: Ileus resolving Advance diet
[2017-01-13] MEDS: METOPROLOL TARTRATE 50 MG TABLET PO SCH ×2 (11:40→22:54)
[2017-01-13] MEDS: LACTOBACILLUS ACIDOPHILUS 250 MG TAB PO SCH ×2 (11:40→17:50)
--- NOTE | 2017-01-13 14:42 | PDOC PROGRESS REPORT ---
Subjective Progress Note for:: 01/13/17 Subjective:: The patient was seen earlier today on rounds. The patient is out of bed to the bedside commode. The patient does admit to an episode of diarrhea this morning. The patient's diet has been advanced to a full liquid diet for which she has tolerated at this point. The patient denies any nausea, vomiting, shortness of breath, dizziness, chest pain, heart palpitations, fevers, or chills. The patient has remained afebrile. Blood pressures have been in a good range. When prompted the patient voices no other concerns at this time. Review of systems: The rest of the review of systems is negative. Physical Exam Vital Signs: Temp Pulse Resp BP Pulse Ox 98.3 F 111 H 18 138/90 H 100 01/13/17 12:32 01/13/17 12:32 01/13/17 12:32 01/13/17 12:32 01/13/17 12:32 Intake & Output 01/11/17 01/12/17 01/13/17 23:59 23:59 23:59 Intake Total 1613 3075 381 Output Total 1900 800 Balance -287 2275 381 Weight 72.3 kg 71.1 kg 72.2 kg General appearance: PRESENT: no acute distress, cooperative, well-developed, well-nourished Head exam: PRESENT: atraumatic, normocephalic Eye exam: PRESENT: conjunctiva pink, EOMI, PERRLA. ABSENT: scleral icterus Ear exam: PRESENT: normal external ear exam Mouth exam: PRESENT: moist, tongue midline Neck exam: ABSENT: carotid bruit, JVD, lymphadenopathy, thyromegaly Respiratory exam: PRESENT: clear to auscultation kianna, symmetrical, unlabored. ABSENT: rales, rhonchi, tachypnea, wheezes Cardiovascular exam: PRESENT: RRR. ABSENT: diastolic murmur, rubs, systolic murmur Pulses: PRESENT: normal dorsalis pedis pul Vascular exam: PRESENT: normal capillary refill GI/Abdominal exam: PRESENT: normal bowel sounds, soft. ABSENT: distended, guarding, mass, organolmegaly, rebound, tenderness Rectal exam: PRESENT: deferred Extremities exam: PRESENT: full ROM. ABSENT: calf tenderness, clubbing, pedal edema Neurological exam: PRESENT: alert, awake, oriented to person, oriented to place , oriented to time, oriented to situation, CN II-XII grossly intact. ABSENT: motor sensory deficit Psychiatric exam: PRESENT: appropriate affect, normal mood. ABSENT: homicidal ideation, suicidal ideation Skin exam: PRESENT: dry, intact, warm. ABSENT: cyanosis, rash Results Laboratory Results: 01/12/17 17:36 01/11/17 08:27 01/12/17 17:36 WBC 12.5 H RBC 3.61 L Hgb 11.0 L Hct 33.2 L MCV 92 MCH 30.6 MCHC 33.3 RDW 13.7 Plt Count 478 H 01/08/17 01/08/17 01/09/17 20:11 20:11 02:23 Creatine Kinase 95 82 CK-MB (CK-2) < 0.22 Troponin I < 0.012 01/09/17 01/09/17 01/09/17 02:23 06:45 06:45 Creatine Kinase 79 CK-MB (CK-2) < 0.22 < 0.22 Troponin I < 0.012 < 0.012 Impressions: KUB X-Ray 12/26/16 09:41 IMPRESSION: Nonspecific bowel gas pattern Small Bowel X-Ray 12/27/16 00:00 IMPRESSION: Gastric outlet obstruction. Unable to evaluate small bowel Findings and limitations discussed with the patient's attending surgeon Abdomen/Pelvis CT 01/04/17 00:00 IMPRESSION: 1. Subsegmental atelectasis in the lung bases. 2. There is a small amount of free fluid in the abdomen P 3. There are dilated loops of small bowel as described. Pedicular concerning is a loop of bowel on the left side. This could pain paraduodenal hernia. The thickening of the bowel wall is concerning perhaps for vascular compromise. Chest X-Ray 01/06/17 16:00 IMPRESSION: 1. The patient has been extubated since prior study. There is bibasilar atelectasis. 2. Central line has been added as described. Catheter tip overlies the right atrium. No pneumothorax. 3. NG tube remains in place. Assessment & Plan - Diagnosis (1) Clostridium difficile colitis Is this a current diagnosis for this admission?: YesPlan: The patient has had an episode of diarrhea this morning. Overall this is much improved. Will add probiotic therapy in conjunction with antibiotic therapy. (2) Opiate dependence, continuous Is this a current diagnosis for this admission?: YesPlan: Have reviewed the patient's medications on the controlled substance database (3) Hypertension Qualifiers: Hypertension type: essential hypertension Qualified Code(s): I10 - Essential (primary) hypertension Is this a current diagnosis for this admission?: YesPlan: Will transition to oral antihypertensives. Will start the patient on lopressor and follow. (4) Hypokalemia Is this a current diagnosis for this admission?: YesPlan: This is been repleted. Will repeat chemistry in a.m. and follow. (5) Lumbago Qualifiers: Chronicity: unspecified Back pain laterality: unspecified Sciatica presence: unspecified whether sciatica present Qualified Code(s): M54.5 - Low back pain Is this a current diagnosis for this admission?: Yes (6) Small bowel obstruction Is this a current diagnosis for this admission?: YesPlan: Management as per surgery. Will discontinue TPN given that the patient is taking by mouth. (7) Hx of hepatitis C Is this a current diagnosis for this admission?: Yes (8) DVT prophylaxis Is this a current diagnosis for this admission?: YesPlan: Continue Lovenox - Time Time Spent with patient: 25-34 minutes Medications reviewed and adjusted accordingly: Yes Anticipated discharge: Home Disposition: The patient is a full code. Pending patient's symptomatology and diagnostic findings will reevaluate in the a.m. The patient has been cleared for discharge from a medical perspective.
[2017-01-14] MEDS: VANCOMYCIN HCL INJ 500 MG VIAL PO SCH ×5 (00:31→23:59)
[2017-01-14 07:35] LABS: HEMATOCRIT 31.6 % (36.0-47.0); HEMOGLOBIN 10.9 g/dL (12.0-15.5); HGB HCT DIFFERENCE 1.1; MEAN CORPUSCULAR HEMOGLOBIN 31.3 pg (27.0-33.4); MEAN CORPUSCULAR HGB CONC 34.3 g/dL (32.0-36.0); MEAN CORPUSCULAR VOLUME 91 fl (80-97); RED BLOOD COUNT 3.47 10^6/uL (3.72-5.28); RED CELL DISTRIBUTION WIDTH 13.7 % (11.5-14.0); WHITE BLOOD COUNT 10.3 10^3/uL (4.0-10.5)
[2017-01-14 07:58] LABS: ANION GAP 9 (5-19); BLOOD UREA NITROGEN 11 mg/dL (7-20); CALCIUM 9.9 mg/dL (8.4-10.2); CARBON DIOXIDE 29 mmol/L (22-30); CHLORIDE 101 mmol/L (98-107); CREATININE RESULT 0.59 mg/dL (0.52-1.25); GLUCOSE 101 mg/dL (75-110); MAGNESIUM 2.1 mg/dL (1.6-2.3); POTASSIUM 4.6 mmol/L (3.6-5.0); SODIUM 139.3 mmol/L (137-145)
[2017-01-14] MEDS: ENOXAPARIN SODIUM INJ 40 MG/0.4 ML DISP.SYRIN SUBCUT SCH (08:38)
[2017-01-14] MEDS: METOPROLOL TARTRATE 50 MG TABLET PO SCH ×2 (11:02→22:59)
[2017-01-14] MEDS: LACTOBACILLUS ACIDOPHILUS 250 MG TAB PO SCH ×2 (11:02→17:58)
--- NOTE | 2017-01-14 13:45 | PDOC PROGRESS REPORT ---
Subjective Progress Note for:: 01/14/17 Subjective:: The patient was seen earlier today on rounds. The patient is lying in bed. The patient was able to tolerate a regular diet for breakfast. The patient has any further episodes of diarrhea. The patient denies any nausea, vomiting, shortness of breath, dizziness, chest pain, heart palpitations, fevers, or chills. The patient has remained afebrile. Blood pressures have been in a good range. When prompted the patient voices no other concerns at this time. Review of systems: The rest of the review of systems is negative. Physical Exam Vital Signs: Temp Pulse Resp BP Pulse Ox 98.3 F 109 H 16 130/90 H 97 01/14/17 11:31 01/14/17 11:31 01/14/17 11:31 01/14/17 11:31 01/14/17 11:31 Intake & Output 01/12/17 01/13/17 01/14/17 23:59 23:59 23:59 Intake Total 3075 1764 369 Output Total 800 Balance 2275 1764 369 Weight 71.1 kg 72.6 kg General appearance: PRESENT: no acute distress, cooperative, well-developed, well-nourished Head exam: PRESENT: atraumatic, normocephalic Eye exam: PRESENT: conjunctiva pink, EOMI, PERRLA. ABSENT: scleral icterus Ear exam: PRESENT: normal external ear exam Mouth exam: PRESENT: moist, tongue midline Neck exam: ABSENT: carotid bruit, JVD, lymphadenopathy, thyromegaly Respiratory exam: PRESENT: clear to auscultation kianna, symmetrical, unlabored. ABSENT: rales, rhonchi, tachypnea, wheezes Cardiovascular exam: PRESENT: RRR. ABSENT: diastolic murmur, rubs, systolic murmur Pulses: PRESENT: normal dorsalis pedis pul Vascular exam: PRESENT: normal capillary refill GI/Abdominal exam: PRESENT: normal bowel sounds, soft. ABSENT: distended, guarding, mass, organolmegaly, rebound, tenderness Rectal exam: PRESENT: deferred Extremities exam: PRESENT: full ROM. ABSENT: calf tenderness, clubbing, pedal edema Neurological exam: PRESENT: alert, awake, oriented to person, oriented to place , oriented to time, oriented to situation, CN II-XII grossly intact. ABSENT: motor sensory deficit Psychiatric exam: PRESENT: appropriate affect, normal mood. ABSENT: homicidal ideation, suicidal ideation Skin exam: PRESENT: dry, intact, warm. ABSENT: cyanosis, rash Results Laboratory Results: 01/14/17 06:50 01/14/17 06:50 01/14/17 01/14/17 06:50 06:50 WBC 10.3 RBC 3.47 L Hgb 10.9 L Hct 31.6 L MCV 91 MCH 31.3 MCHC 34.3 RDW 13.7 Plt Count 530 H Sodium 139.3 Potassium 4.6 Chloride 101 Carbon Dioxide 29 Anion Gap 9 BUN 11 Creatinine 0.59 Est GFR ( Amer) > 60 Est GFR (Non-Af Amer) > 60 Glucose 101 Calcium 9.9 Magnesium 2.1 01/08/17 01/08/17 01/09/17 20:11 20:11 02:23 Creatine Kinase 95 82 CK-MB (CK-2) < 0.22 Troponin I < 0.012 01/09/17 01/09/17 01/09/17 02:23 06:45 06:45 Creatine Kinase 79 CK-MB (CK-2) < 0.22 < 0.22 Troponin I < 0.012 < 0.012 Impressions: KUB X-Ray 12/26/16 09:41 IMPRESSION: Nonspecific bowel gas pattern Small Bowel X-Ray 12/27/16 00:00 IMPRESSION: Gastric outlet obstruction. Unable to evaluate small bowel Findings and limitations discussed with the patient's attending surgeon Abdomen/Pelvis CT 01/04/17 00:00 IMPRESSION: 1. Subsegmental atelectasis in the lung bases. 2. There is a small amount of free fluid in the abdomen P 3. There are dilated loops of small bowel as described. Pedicular concerning is a loop of bowel on the left side. This could pain paraduodenal hernia. The thickening of the bowel wall is concerning perhaps for vascular compromise. Chest X-Ray 01/06/17 16:00 IMPRESSION: 1. The patient has been extubated since prior study. There is bibasilar atelectasis. 2. Central line has been added as described. Catheter tip overlies the right atrium. No pneumothorax. 3. NG tube remains in place. Assessment & Plan - Diagnosis (1) Clostridium difficile colitis Is this a current diagnosis for this admission?: YesPlan: Diarrhea has resolved at this point. Overall this is much improved. Will add probiotic therapy in conjunction with antibiotic therapy. The patient will need to complete a full 10 days of therapy. (2) Opiate dependence, continuous Is this a current diagnosis for this admission?: YesPlan: Have reviewed the patient's medications on the controlled substance database (3) Hypertension Qualifiers: Hypertension type: essential hypertension Qualified Code(s): I10 - Essential (primary) hypertension Is this a current diagnosis for this admission?: YesPlan: The patient has responded well to current dose of Lopressor will continue. (4) Hypokalemia Is this a current diagnosis for this admission?: YesPlan: This is been repleted. (5) Lumbago Qualifiers: Chronicity: unspecified Back pain laterality: unspecified Sciatica presence: unspecified whether sciatica present Qualified Code(s): M54.5 - Low back pain Is this a current diagnosis for this admission?: Yes (6) Small bowel obstruction Is this a current diagnosis for this admission?: Yes (7) Hx of hepatitis C Is this a current diagnosis for this admission?: Yes (8) DVT prophylaxis Is this a current diagnosis for this admission?: Yes - Time Time Spent with patient: 25-34 minutes Medications reviewed and adjusted accordingly: Yes Anticipated discharge: Home Within: Other Disposition: The patient is a full code. Pending patient's symptomatology and diagnostic findings will reevaluate in the a.m.
--- NOTE | 2017-01-14 16:48 | PDOC PROGRESS REPORT ---
Subjective Progress Note for:: 01/14/17 Subjective:: had BM Feeling better tolerating diet Physical Exam Vital Signs: Temp Pulse Resp BP Pulse Ox 98.8 F 97 16 132/85 H 99 01/14/17 16:43 01/14/17 16:43 01/14/17 16:43 01/14/17 16:43 01/14/17 16:43 Intake & Output 01/13/17 01/14/17 01/15/17 06:59 06:59 06:59 Intake Total 1587 1752 Output Total 800 Balance 787 1752 Weight 72.2 kg 72.6 kg GI/Abdominal exam: PRESENT: other - soft abdomen Results Laboratory Results: 01/14/17 06:50 01/14/17 06:50 01/14/17 01/14/17 06:50 06:50 WBC 10.3 RBC 3.47 L Hgb 10.9 L Hct 31.6 L MCV 91 MCH 31.3 MCHC 34.3 RDW 13.7 Plt Count 530 H Sodium 139.3 Potassium 4.6 Chloride 101 Carbon Dioxide 29 Anion Gap 9 BUN 11 Creatinine 0.59 Est GFR ( Amer) > 60 Est GFR (Non-Af Amer) > 60 Glucose 101 Calcium 9.9 Magnesium 2.1 01/08/17 01/08/17 01/09/17 20:11 20:11 02:23 Creatine Kinase 95 82 CK-MB (CK-2) < 0.22 Troponin I < 0.012 01/09/17 01/09/17 01/09/17 02:23 06:45 06:45 Creatine Kinase 79 CK-MB (CK-2) < 0.22 < 0.22 Troponin I < 0.012 < 0.012 Impressions: KUB X-Ray 12/26/16 09:41 IMPRESSION: Nonspecific bowel gas pattern Small Bowel X-Ray 12/27/16 00:00 IMPRESSION: Gastric outlet obstruction. Unable to evaluate small bowel Findings and limitations discussed with the patient's attending surgeon Abdomen/Pelvis CT 01/04/17 00:00 IMPRESSION: 1. Subsegmental atelectasis in the lung bases. 2. There is a small amount of free fluid in the abdomen P 3. There are dilated loops of small bowel as described. Pedicular concerning is a loop of bowel on the left side. This could pain paraduodenal hernia. The thickening of the bowel wall is concerning perhaps for vascular compromise. Chest X-Ray 01/06/17 16:00 IMPRESSION: 1. The patient has been extubated since prior study. There is bibasilar atelectasis. 2. Central line has been added as described. Catheter tip overlies the right atrium. No pneumothorax. 3. NG tube remains in place. Assessment & Plan - Plan Summary Plan Summary: Ileus resolving Advnce diet DC TPN
[2017-01-15] MEDS: VANCOMYCIN HCL INJ 500 MG VIAL PO SCH (06:35)
[2017-01-15] MEDS: METOPROLOL TARTRATE 50 MG TABLET PO SCH (10:00)
[2017-01-15] MEDS: LACTOBACILLUS ACIDOPHILUS 250 MG TAB PO SCH (10:00)
[2017-01-15] MEDS: ENOXAPARIN SODIUM INJ 40 MG/0.4 ML DISP.SYRIN SUBCUT SCH (10:01)
--- NOTE | 2017-01-15 11:08 | DISCHARGE SUMMARY E ---
Discharge Summary NAME: LEELEE HANDY : 1960 AGE: 56Y ADMITTED: 12/26/2016 DISCHARGED: REASON FOR ADMISSION: Acute abdominal pain. SUMMARY OF HOSPITALIZATION: The patient is a 56-year-old -Luxembourger female with a history of previous abdominal surgery, who was admitted to the hospital complaining of acute abdominal pain, nausea and vomiting. She was evaluated by CT scan of the abdomen and pelvis with findings consistent with a small bowel obstruction. The patient was admitted to the hospital on the surgical service, kept NPO, and had nasogastric tube inserted, and IV fluids administered. Over the ensuing 2 days, she underwent an upper GI with a small bowel follow-through series, which showed gastric outlet obstruction and inability to evaluate the small intestines. Because of persisting abdominal pain, despite optimal efforts at medical management, the patient was taken to the operating room by Dr. Julius Honeycutt on 12/27/2016, where she underwent exploratory laparotomy and lysis of adhesions. Postoperatively, she had a slow course and showed signs of progress, but then regressed without complete resolution of her postoperative ileus. She was taken back to the operating room by Dr. Coy Becker, where she underwent exploratory laparotomy, small bowel resection, appendectomy, lysis of adhesions. She again recovered from this uneventfully. Her final path report on the small bowel including the terminal ileum and appendix consisted of serosal adhesions and fat necrosis, but no evidence of acute inflammation or appendicitis. Following the 2nd operation, the patient did show signs of improvement. She did have nutritional support through a left internal jugular vein central line placement. Eventually, the patient's GI function returned with reliability and she was ready for discharge home. FINAL DIAGNOSIS: Small bowel obstruction, recurrent, status post 2 exploratory laparotomies including lysis of adhesions, small bowel resections by Drs. Honeycutt and Rosita. DISPOSITION: The patient will be discharged home to the care of her family, take Percocet PRN pain, shower, and follow-up with [facility] in approximately 1 to 2 weeks for suture removal. She will also follow up with a primary care physician as previously scheduled. DICTATING PHYSICIAN: ARNEL RUBIO M.D. [id number] PHY#: [id number] ID: [id number] JOB#: [id number] ACCT: [id number] cc:Joyce EVANS M.D. >
[2017-01-15 11:45] VITALS: BP 132/85
== END 2017-01-15 12:42 | disposition home or self-care (01) | DRG 336 ==
LOC: ER 07:02 → EH 17:45 → UNDOADMIN 17:45 → 2S 18:26 → EH 12-27 01:01 → 4N 12-28 21:50 → ICU 01-04 21:22 → 4N 01-06 13:20 → UNDODISIN 01-10 14:12
PROVIDERS: ADMIT Surgery; ATTEND Surgery
PROC: 0D9670Z Drainage of Stomach with Drainage Device, Via Natural or Artificial Opening (ICD-10-PCS; 2016-12-26)
PROC: 0DN80ZZ Release Small Intestine, Open Approach (ICD-10-PCS; principal; 2016-12-27 14:00)
PROC: 0DN80ZZ Release Small Intestine, Open Approach (ICD-10-PCS; 2017-01-04)
PROC: 0DTJ0ZZ Resection of Appendix, Open Approach (ICD-10-PCS; 2017-01-04)
PROC: B548ZZA Ultrasonography of Superior Vena Cava, Guidance (ICD-10-PCS; 2017-01-06)
PROC: 02HV33Z Insertion of Infusion Device into Superior Vena Cava, Percutaneous Approach (ICD-10-PCS; 2017-01-06)
DX: K56.5 Intestinal adhesions [bands] with obstruction (postinfection) (principal); A04.7 Enterocolitis due to Clostridium difficile; E87.6 Hypokalemia; I10 Essential (primary) hypertension; E78.5 Hyperlipidemia, unspecified; M54.5 Low back pain; G89.29 Other chronic pain; F17.210 Nicotine dependence, cigarettes, uncomplicated; Z79.899 Other long term (current) drug therapy; Z90.49 Acquired absence of other specified parts of digestive tract
CPT/HCPCS: 36415; 71010; 74000; 74177; 74250; 790; 80048; 80053; 81001; 82550; 82553; 82962; 83690; 83735; 840; 84100; 84132; 84134; 84478; 84484; 85025; 85027; 85610; 86850; 86900; 86901; 87493; 88307; 93005; 93010; 94002; 94003; 94799; 96361; 96374; 96375; 96376; 99285; C1751; J0131; J0330; J0360; J0690; J1100; J1170; J1642; J1650; J1885; J2250; J2270; J2370; J2405; J2543; J2704; J3010; J3370; J3480; J3490; J7030; S0028

== ENCOUNTER → 2017-03-29 | Outpatient (CLI) | payer MEDICAID ==
--- NOTE | 2017-03-29 16:09 | WOMENS IMAGING REPORT ---
EXAM DESCRIPTION: BILAT SCREENING MAMMO W/CAD COMPLETED DATE/TIME: 03/29/2017 2:59 pm REASON FOR STUDY: Z12.31, ROUTINE SCREENING MAMMO Z12.31 ENCNTR SCREEN MAMMOGRAM FOR MALIGNANT NEOP LASM OF GRANT COMPARISON: None. TECHNIQUE: Standard craniocaudal and mediolateral oblique views of each breast recorded using [employer] l acquisition. LIMITATIONS: None. FINDINGS: No masses, calcifications or architectural distortion. No areas of suspicion. Read with the assistance of CAD. .[facility] - R2 [employer] Version 1.3 .[facility] - R2 Cenova Version 1.3 .[facility] - R2 Cenova Version 2.4 .[facility] - R2 Cenova Version 2.4 .[facility] - R2 [employer] Tester Version 9.2 IMPRESSION: NORMAL MAMMOGRAM. BIRADS 1. BREAST DENSITY: b. There are scattered areas of fibroglandular density. BIRAD: 1 NEGATIVE RECOMMENDATION: ROUTINE SCREENING COMMENT: The patient has been notified of the results by letter per MQSA requirements. Additional no tification policies are in place for contacting patient with suspicious or incomplete findings. Quality ID #[id number]: The [employer] recommends an annual screening mammogram for women aged 40 years or over. This facility utilizes a reminder system to ensure that all patients receive reminder letters, and/or direct phone calls for appointments. This includes reminders for routine scr eening mammograms, diagnostic mammograms, or other Breast Imaging Interventions when appropriate. Th is patient will be placed in the appropriate reminder system. The [employer] (ACR) has developed recommendations for screening MRI of the breast s in certain patient populations, to be used in conjunction with mammography. Breast MRI surveillanc e may be appropriate for women with more than 20% lifetime risk of developing breast cancer as deter mined by genetic testing, significant family history of the disease, or history of mantle radiation f or Hodgkins Disease. ACR Practice Guidelines 2008. TECHNICAL DOCUMENTATION: FINDING NUMBER: (1) ASSESSMENT: (1) JOB ID: [id number] [employer]- All Rights Reserved
== END ==
LOC: WI 13:51
PROVIDERS: ATTEND Obstetrics & Gynecology Gynecology
DX: Z12.31 Encounter for screening mammogram for malignant neoplasm of breast (principal)
CPT/HCPCS: 77067; G0202

== ENCOUNTER 2017-04-20 10:51 | Emergency (ER) | payer MEDICAID ==
[2017-04-20] MEDS ORDERED: LIDOCAINE 1%/EPINEPHRINE INJ 20 ML VIAL INJ ONE (11:00)
--- NOTE | 2017-04-20 11:02 | ER Document Report ---
ED Medical Screen (RME) - General Chief Complaint: Laceration Stated Complaint: HEAD INJURY TRAVEL OUTSIDE OF THE [place] IN LAST 30 DAYS: No - HPI Notes: 04/20/17 11:01 Head laceration after hitting a tree branch. No LOC - Related Data Allergies/Adverse Reactions: lisinopril Adverse Reaction (Severe, Verified 04/20/17 10:53) Facial swelling Past Medical History - Social History Chew tobacco use (# tins/day): No Frequency of alcohol use: None Drug Abuse: None - Past Medical History Cardiac Medical History: Reports: Hx Hypertension Denies: Hx Coronary Artery Disease, Hx Heart Attack Renal/ Medical History: Reports: Hx Ovarian Cysts. Denies: Hx Peritoneal Dialysis GI Medical History: Reports: Hx Diverticulitis, Hx Hepatitis - c, Hx Colonoscopy Musculoskeltal Medical History: Reports Hx Arthritis - Chronic back pain, Reports Hx Musculoskeletal Deformity Psychiatric Medical History: Denies: Hx Depression Infectious Medical History: Reports: Hx Hepatitis - c Past Surgical History: Reports: Hx Cholecystectomy, Hx Gynecologic Surgery - ovarian scar tissue removed infertility surgery, Hx Oral Surgery - Teeth removed and dental implant, Hx Orthopedic Surgery - carpal tunnel bunionectomy - Immunizations Immunizations up to date: No Hx Diphtheria, Pertussis, Tetanus Vaccination: No - 2007 Review of Systems - Review of Systems Constitutional: Other - Laceration Physical Exam - Vital signs Vitals: Temp Pulse Resp BP Pulse Ox 97.7 F 102 H 18 141/93 H 98 04/20/17 10:53 04/20/17 10:53 04/20/17 10:53 04/20/17 10:53 04/20/17 10:53 - General Notes: Small laceration to the top of the forehead Course - Re-evaluation Re-evalutation: 04/20/17 11:01 - Vital Signs Vital signs: Temp Pulse Resp BP Pulse Ox 97.7 F 102 H 18 141/93 H 98 04/20/17 10:53 04/20/17 10:53 04/20/17 10:53 04/20/17 10:53 04/20/17 10:53
[2017-04-20] MEDS ORDERED: ACETAMINOPHEN 325 MG TABLET PO ONE (11:45)
--- NOTE | 2017-04-20 12:19 | ER Document Report ---
ED Wound - General Chief Complaint: Laceration Stated Complaint: HEAD INJURY Time Seen by Provider: 04/20/17 11:15 TRAVEL OUTSIDE OF THE [place] IN LAST 30 DAYS: No - HPI Patient complains to provider of: Laceration - scalp, middle of her forehead Occurred: Just prior to arrival Onset/Duration: Sudden Context: Injury - was mowing her lawn and walked into a tree, no LOC/ Capillary refill: N/A - Related Data Allergies/Adverse Reactions: lisinopril Adverse Reaction (Severe, Verified 04/20/17 10:53) Facial swelling Past Medical History - Social History Smoking Status: Current Every Day Smoker Chew tobacco use (# tins/day): No Frequency of alcohol use: None Drug Abuse: None Family History: Arthritis, COPD, CVA, Hyperlipidemia, Hypertension, Malignancy - Past Medical History Cardiac Medical History: Reports: Hx Hypertension Denies: Hx Coronary Artery Disease, Hx Heart Attack Renal/ Medical History: Reports: Hx Ovarian Cysts. Denies: Hx Peritoneal Dialysis GI Medical History: Reports: Hx Diverticulitis, Hx Hepatitis - c, Hx Colonoscopy Musculoskeltal Medical History: Reports Hx Arthritis - Chronic back pain, Reports Hx Musculoskeletal Deformity Psychiatric Medical History: Denies: Hx Depression Infectious Medical History: Reports: Hx Hepatitis - c Past Surgical History: Reports: Hx Cholecystectomy, Hx Gynecologic Surgery - ovarian scar tissue removed infertility surgery, Hx Oral Surgery - Teeth removed and dental implant, Hx Orthopedic Surgery - carpal tunnel bunionectomy - Immunizations Immunizations up to date: No Hx Diphtheria, Pertussis, Tetanus Vaccination: No - 2007 Review of Systems - Review of Systems Constitutional: No symptoms reported Skin: See HPI Neurological/Psychological: No symptoms reported -: Yes All other systems reviewed and negative Physical Exam - Vital signs Vitals: Temp Pulse Resp BP Pulse Ox 97.7 F 102 H 18 141/93 H 98 04/20/17 10:53 04/20/17 10:53 04/20/17 10:53 04/20/17 10:53 04/20/17 10:53 - HEENT Head: Normocephalic, Open wounds. No: Abrasions, Adair's sign, Ecchymosis, Racoon's eyes, Tenderness Eyes: Normal Conjunctiva: Normal Cornea: Normal Extraocular movements intact: Yes Eyelashes: Normal Pupils: PERRL Ears: Normal External canal: Normal Tympanic membrane: Normal Sinus: Normal Nasal: Normal Mouth/Lips: Normal Mucous membranes: Normal Pharynx: Normal Neck: Normal - Neurological Neuro grossly intact: Yes Cognition: Normal Orientation: AAOx4 Adali Coma Scale Eye Opening: Spontaneous Adali Coma Scale Verbal: Oriented Staples Coma Scale Motor: Obeys Commands Staples Coma Scale Total: 15 Speech: Normal Cranial nerves: Normal Cerebellar coordination: Normal - Skin Skin irregularity: Laceration - 3.5 cm with active bleeding on middle scalp just below the hairline Course - Re-evaluation Re-evalutation: 04/20/17 13:00 Patient is a 56-year-old female who is hemodynamic stable, no acute distress afebrile. No sign of skull fracture. Bleeding stopped at the bedside using cautery pen and lidocaine with epi. Laceration closed with 8 interrupted 6-0 nylon sutures. Dry sterile dressing applied. Patient does not have any focal neurologic deficits, nuchal rigidity, vital signs are within normal limits no papilledema. Patient is otherwise no acute distress and hemodynamically stable. Low index for suspicion of acute subarachnoid hemorrhage, meningitis or mass. Low suspicion for acute life-threatening etiology with intact neuro exam therefore no additional imaging or laboratory testing is indicated. Will discharge patient home with strict follow-up with PCP for suture removal in 3-5 days - Vital Signs Vital signs: Temp Pulse Resp BP Pulse Ox 97.2 F 80 20 135/98 H 99 04/20/17 12:30 04/20/17 12:30 04/20/17 12:30 04/20/17 12:30 04/20/17 12:30 Procedures - Laceration/Wound Repair Face Time completed: 12:15 Wound length (cm): 3.5 Wound's Depth, Shape: Linear Laceration pre-procedure: Sterile PPE donned, Betadine prep applied, Sterile drapes applied Anesthetic type: 1% Lidocaine Volume Anesthetic (mLs): 4 Wound explored: No foreign body removed Wound Repaired With: Sutures Suture Size/Type: Nylon Number of Sutures: 8 Layer Closure?: No Post-procedure wound care: Sterile dressing applied Post-procedure NV exam normal: Yes Complications: No Discharge - Discharge Clinical Impression: Laceration Head injury Qualifiers: Encounter type: initial encounter Qualified Code(s): S09.90XA - Unspecified injury of head, initial encounter Condition: Good Disposition: HOME, SELF-CARE Instructions: Laceration Care ([facility]), Prophylactic Antibiotic ([facility]), Soap Cleansing ([facility]), Antibiotic Ointment Protection ([facility]), Head Injury Precautions ( [facility]), Acetaminophen Additional Instructions: Please follow-up with your primary care physician in 3-5 days to have your stitches removed. Please keep an eye out for any redness, swelling, cordero drainage. Referrals: VINNY LOO MD [Primary Care Provider] - Follow up in 3-5 days
[2017-04-20 12:31] VITALS: BP 135/98
== END 2017-04-20 12:32 | disposition home or self-care (01) ==
LOC: ER 10:51
PROC: 0HQ1XZZ Repair Face Skin, External Approach (ICD-10-PCS; principal; 2017-04-20)
DX: S09.90XA Unspecified injury of head, initial encounter (principal); S01.01XA Laceration without foreign body of scalp, initial encounter; S01.81XA Laceration without foreign body of other part of head, initial encounter; X58.XXXA Exposure to other specified factors, initial encounter; F17.200 Nicotine dependence, unspecified, uncomplicated
CPT/HCPCS: 99283; 12013; J3490 ×2

== ENCOUNTER 2017-04-28 08:13 | Emergency (ER) | payer MEDICAID ==
[2017-04-28 08:19] VITALS: BP 135/86
--- NOTE | 2017-04-28 08:29 | ER Document Report ---
HPI - HPI Patient complains to provider of: suture removal Onset: Last week Onset/Duration: Better Quality of pain: No pain Pain Level: Denies Context: Patient presents for suture removal to laceration that she received patient states that she was mowing her yard 1 week ago. In a branch cut her on the forehead. Patient denies any problems from the wound. Patient reports having a sutures placed. Patient denies any nausea or vomiting. Associated Symptoms: Other - Facial laceration Exacerbated by: Denies Relieved by: Denies Similar symptoms previously: No Recently seen / treated by doctor: Yes - ROS ROS below otherwise negative: Yes Systems Reviewed and Negative: Yes All other systems reviewed and negative - CONSTITUTIONAL Constitutional: DENIES: Fever - NEURO Neurology: DENIES: Headache - GASTROINTESTINAL Gastrointestinal: DENIES: Nausea, Patient vomiting - REPRODUCTIVE Reproductive: DENIES: : - MUSCULOSKELETAL Musculoskeletal: DENIES: Neck Pain - DERM Skin Color: Normal Skin Problems: Laceration Past Medical History - General Information source: Patient - Social History Smoking Status: Current Every Day Smoker Frequency of alcohol use: None Drug Abuse: None Family History: Arthritis, COPD, CVA, Hyperlipidemia, Hypertension, Malignancy - Past Medical History Cardiac Medical History: Reports: Hx Hypertension Denies: Hx Coronary Artery Disease, Hx Heart Attack Renal/ Medical History: Reports: Hx Ovarian Cysts. Denies: Hx Peritoneal Dialysis GI Medical History: Reports: Hx Diverticulitis, Hx Hepatitis - c, Hx Colonoscopy Musculoskeltal Medical History: Reports Hx Arthritis - Chronic back pain, Reports Hx Musculoskeletal Deformity Psychiatric Medical History: Denies: Hx Depression Infectious Medical History: Reports: Hx Hepatitis - c Past Surgical History: Reports: Hx Cholecystectomy, Hx Gynecologic Surgery - ovarian scar tissue removed infertility surgery, Hx Oral Surgery - Teeth removed and dental implant, Hx Orthopedic Surgery - carpal tunnel bunionectomy - Immunizations Immunizations up to date: No Hx Diphtheria, Pertussis, Tetanus Vaccination: No - 2007 Vertical Provider Document - CONSTITUTIONAL Agree With Documented VS: Yes Exam Limitations: No Limitations General Appearance: WD/WN, No Apparent Distress - INFECTION CONTROL TRAVEL OUTSIDE OF THE [place] IN LAST 30 DAYS: No - HEENT HEENT: Normocephalic - NECK Neck: Normal Inspection - RESPIRATORY Respiratory: No Respiratory Distress O2 Sat by Pulse Oximetry: 97 - MUSCULOSKELETAL/EXTREMETIES Musculoskeletal/Extremeties: MAEW - NEURO Level of Consciousness: Awake, Alert, Appropriate Motor/Sensory: No Motor Deficit - DERM Integumentary: Warm, Dry, Laceration - Sutured laceration to forehead with 8 intact sutures, wound edges approximated, no concern for inflammation or infection Course - Vital Signs Vital signs: Temp Pulse Resp BP Pulse Ox 98.3 F 98 16 135/86 H 97 04/28/17 08:16 04/28/17 08:16 04/28/17 08:16 04/28/17 08:16 04/28/17 08:16 Discharge - Discharge Clinical Impression: Encounter for removal of sutures Condition: Stable Disposition: HOME, SELF-CARE Instructions: Suture Removal Additional Instructions: Return immediately for any new or worsening symptoms Followup with your primary care provider as needed for a followup appointment Referrals: VINNY LOO MD [ACTIVE STAFF] - Follow up as needed
== END 2017-04-28 09:02 | disposition home or self-care (01) ==
LOC: ER 08:13
DX: S01.81XD Laceration without foreign body of other part of head, subsequent encounter (principal)

== ENCOUNTER → 2017-09-21 | Outpatient (CLI) | payer MEDICAID ==
--- NOTE | 2017-09-21 13:56 | RADIOLOGY REPORT (SQ) ---
EXAM DESCRIPTION: U/S ABD AORTIC SCREENING COMPLETED DATE/TIME: 09/21/2017 10:42 am REASON FOR STUDY: R19.00 INTRA-ABD AND PELVIC SWELLING, MASS AND LUMP, UNSP SITE R19.00 INTRA-ABD A ND PELVIC SWELLING, MASS AND LUMP, UNSP SI COMPARISON: None. TECHNIQUE: Static and dynamic grayscale images acquired of the aorta and stored on PACs. Selected co leti Doppler and spectral images recorded. LIMITATIONS: Overlying bowel gas. FINDINGS: AORTIC CALIBER MAXIMAL PROXIMAL: 2.4 cm. MID: 1.8 cm. DISTAL: 1.3 cm. ILIAC DIAMETER RIGHT: 1.0 cm. LEFT: 0.8 cm. OTHER: No other significant finding. IMPRESSION: NO ABDOMINAL AORTIC ANEURYSM. COMMENT: Aorta screening examinations categories: Negative=less than 3 cm TECHNICAL DOCUMENTATION: JOB ID: [id number] [employer]- All Rights Reserved
== END ==
LOC: RAD 10:13
PROVIDERS: ATTEND Internal Medicine
DX: R19.00 Intra-abdominal and pelvic swelling, mass and lump, unspecified site (principal)
CPT/HCPCS: 76706

== ENCOUNTER → 2018-04-02 | Outpatient (CLI) | payer MEDICAID ==
--- NOTE | 2018-04-02 12:06 | WOMENS IMAGING REPORT ---
EXAM DESCRIPTION: BILAT SCREENING MAMMO W/CAD COMPLETED DATE/TIME: 04/02/2018 10:06 am REASON FOR STUDY: BILATERAL SCREENING MAMMO/Z12.31 Z12.31 ENCNTR SCREEN MAMMOGRAM FOR MALIGNANT JANELL PLASM OF GRANT COMPARISON: 2016 TECHNIQUE: Standard craniocaudal and mediolateral oblique views of each breast recorded using Perzoa l acquisition. LIMITATIONS: None. FINDINGS: No masses, calcifications or architectural distortion. No areas of suspicion. Read with the assistance of CAD. .[facility] - R2 Cenova Version 1.3 .[facility] - R2 Cenova Version 1.3 .[facility] - R2 Cenova Version 2.4 .[facility] [place] [facility] - R2 Cenova Version 2.4 .[facility] - R2 Scratch Brusher Version 9.2 IMPRESSION: NORMAL MAMMOGRAM. BIRADS 1. BREAST DENSITY: b. There are scattered areas of fibroglandular density. BIRAD: 1 NEGATIVE RECOMMENDATION: ROUTINE SCREENING COMMENT: The patient has been notified of the results by letter per SA requirements. Additional no tification policies are in place for contacting patient with suspicious or incomplete findings. Quality ID #225: The [employer] recommends an annual screening mammogram for women aged 40 years or over. This facility utilizes a reminder system to ensure that all patients receive reminder letters, and/or direct phone calls for appointments. This includes reminders for routine scr eening mammograms, diagnostic mammograms, or other Breast Imaging Interventions when appropriate. Th is patient will be placed in the appropriate reminder system. The [employer] (ACR) has developed recommendations for screening MRI of the breast s in certain patient populations, to be used in conjunction with mammography. Breast MRI surveillanc e may be appropriate for women with more than 20% lifetime risk of developing breast cancer as deter mined by genetic testing, significant family history of the disease, or history of mantle radiation f or Hodgkins Disease. ACR Practice Guidelines 2008. TECHNICAL DOCUMENTATION: FINDING NUMBER: (1) ASSESSMENT: (1) JOB ID: [id number] [employer]- All Rights Reserved Reading location - IP/workstation name: [email or web address]
== END ==
LOC: WI 09:26
PROVIDERS: ATTEND Internal Medicine
DX: Z12.31 Encounter for screening mammogram for malignant neoplasm of breast (principal)
CPT/HCPCS: 77067

== ENCOUNTER → 2019-07-10 | Outpatient (CLI) | payer MEDICAID ==
--- NOTE | 2019-07-10 13:43 | WOMENS IMAGING REPORT ---
EXAM DESCRIPTION: BILAT SCREENING MAMMO W/CAD COMPLETED DATE/TIME: 07/10/2019 1:16 pm REASON FOR STUDY: Z12.31 SCREENING OEZQSL79.31 ENCNTR SCREEN MAMMOGRAM FOR MALIGNANT NEOPLASM OF BR E COMPARISON: 2016, 2018 EXAM PARAMETERS: Standard craniocaudal and mediolateral oblique views of each breast recorded using digital acquisition. Read with the assistance of CAD. .[facility] - R2 Cellophaner Version 9.2 LIMITATIONS: None. FINDINGS: RIGHT BREAST MASSES: No suspicious masses. CALCIFICATIONS: No new or suspicious calcifications. ARCHITECTURAL DISTORTION: None. DEVELOPING DENSITY: None. ASYMMETRY: None noted. OTHER: No other significant findings. LEFT BREAST MASSES: No suspicious masses. CALCIFICATIONS: No new or suspicious calcifications. ARCHITECTURAL DISTORTION: None. DEVELOPING DENSITY: Posteriorly about 11 cm deep to the nipple seen on the MLO view only. ASYMMETRY: None noted. OTHER: No other significant findings. IMPRESSION: Developing density left breast. 0 Incomplete: Needs Additional Imaging Evaluation and/or prior Mammograms for Comparison. BREAST DENSITY: b. There are scattered areas of fibroglandular density. BIRAD: ASSESSMENT: 0 Incomplete: Needs Additional Imaging Evaluation and/or prior Mammograms for C omparison. RECOMMENDATION: RECOMMENDED FOLLOW-UP: True lateral, exaggerated CC, cone compression views and pote ntial ultrasound left breast. The patient will be contacted for additional imaging. COMMENT: The patient has been notified of the results by letter per MQSA requirements. Additional no tification policies are in place for contacting patient with suspicious or incomplete findings. Quality ID #225: The [employer] recommends an annual screening mammogram for women aged 40 years or over. This facility utilizes a reminder system to ensure that all patients receive reminder letters, and/or direct phone calls for appointments. This includes reminders for routine scr eening mammograms, diagnostic mammograms, or other Breast Imaging Interventions when appropriate. Th is patient will be placed in the appropriate reminder system. TECHNICAL DOCUMENTATION: FINDING NUMBER: (1) ASSESSMENT: (1) JOB ID: [id number] [employer]- All Rights Reserved Reading location - IP/workstation name: [email or web address]
== END ==
LOC: WI 13:00
PROVIDERS: ATTEND Internal Medicine
DX: Z12.31 Encounter for screening mammogram for malignant neoplasm of breast (principal)
CPT/HCPCS: 77067

== ENCOUNTER → 2019-07-29 | Outpatient (CLI) | payer MEDICAID ==
--- NOTE | 2019-07-29 11:31 | WOMENS IMAGING REPORT ---
EXAM DESCRIPTION: LEFT DIAGNOSTIC MAMMO W/CAD COMPLETED DATE/TIME: 07/29/2019 11:11 am REASON FOR STUDY: R92.2 LEFT DX R92.2 INCONCLUSIVE MAMMOGRAM COMPARISON: Mammograms since 03/29/2017 EXAM PARAMETERS: Left breast exaggerated craniocaudad, left breast mediolateral 90, and left breast MLO cone compression images of the breast recorded with digital acquisition. Read with the assistance of CAD. .[facility] - R2 In Class Special Education Teacher Version 9.2 LIMITATIONS: None. FINDINGS: BREAST LATERALITY: left MASSES: No suspicious masses. CALCIFICATIONS: No new or suspicious calcifications. ARCHITECTURAL DISTORTION: None. ASYMMETRY: None noted. OTHER: No other significant findings. IMPRESSION: No mammographic evidence for malignancy left breast BREAST DENSITY: b. There are scattered areas of fibroglandular density. BIRAD: ASSESSMENT: 1 Negative. RECOMMENDATION: RECOMMENDED FOLLOW UP: Please continue yearly bilateral screening mammography/ tomos ynthesis in July 2020 SPECIFIC INTERVENTION/IMAGING/CONSULTATION RECOMMENDED:No additional intervention/ imaging/consultati on needed at this time. COMMUNICATION:Patient notified by letter COMMENT: The patient has been notified of the results by letter per MQSA requirements. Additional no tification policies are in place for contacting patient with suspicious or incomplete findings. Quality ID #225: The [employer] recommends an annual screening mammogram for women aged 40 years or over. This facility utilizes a reminder system to ensure that all patients receive reminder letters, and/or direct phone calls for appointments. This includes reminders for routine scr eening mammograms, diagnostic mammograms, or other Breast Imaging Interventions when appropriate. Th is patient will be placed in the appropriate reminder system. TECHNICAL DOCUMENTATION: FINDING NUMBER: (1) ASSESSMENT: (1) JOB ID: [id number] [employer]- All Rights Reserved Reading location - IP/workstation name: [email or web address]
== END ==
LOC: WI 10:40
PROVIDERS: ATTEND Internal Medicine
DX: R92.2 Inconclusive mammogram (principal)
CPT/HCPCS: 77065

== ENCOUNTER → 2020-08-12 | Outpatient (CLI) | payer MEDICAID ==
--- NOTE | 2020-08-12 16:57 | WOMENS IMAGING REPORT ---
EXAM DESCRIPTION: BILAT SCREENING MAMMO W/CAD IMAGES COMPLETED DATE/TIME: 08/12/2020 2:23 pm REASON FOR STUDY: Z12.31 ENCNTR SCREEN MAMMOGRAM FOR MALIGNANT NEOPLASM OF BREAST Z12.31 ENCNTR SCR EEN MAMMOGRAM FOR MALIGNANT NEOPLASM OF GRANT COMPARISON: 07/10/2019, 04/02/2018, 03/29/2017 EXAM PARAMETERS: Standard craniocaudal and mediolateral oblique views of each breast recorded using digital acquisition. Read with the assistance of CAD. .[facility] - Pan Cleaner Version 9.2 LIMITATIONS: None. FINDINGS: No suspicious masses, suspicious calcifications or architectural distortion. No areas of c oncern. IMPRESSION: NEGATIVE MAMMOGRAM. BIRADS 1 BREAST DENSITY: b. There are scattered areas of fibroglandular density. BIRAD: ASSESSMENT: 1 NEGATIVE RECOMMENDATION: ROUTINE SCREENING COMMENT: The patient has been notified of the results by letter per MQSA requirements. Additional no tification policies are in place for contacting patient with suspicious or incomplete findings. Quality ID #225: The [employer] recommends an annual screening mammogram for women aged 40 years or over. This facility utilizes a reminder system to ensure that all patients receive reminder letters, and/or direct phone calls for appointments. This includes reminders for routine scr eening mammograms, diagnostic mammograms, or other Breast Imaging Interventions when appropriate. Th is patient will be placed in the appropriate reminder system. TECHNICAL DOCUMENTATION: FINDING NUMBER: (1) ASSESSMENT: (1) JOB ID: [id number] 2010 [employer]- All Rights Reserved Reading location - IP/workstation name: [email or web address]
== END ==
LOC: WI 13:01
PROVIDERS: ATTEND Internal Medicine
DX: Z12.31 Encounter for screening mammogram for malignant neoplasm of breast (principal)
CPT/HCPCS: 77067